=== PATIENT | female | born 1985 | race Caucasian/White ===

== ENCOUNTER → 2017-04-30 | Outpatient (CLI) | payer BC ==
--- NOTE | 2017-05-05 14:07 | HM ---
Patient was monitored for 48 hours. Baseline rhythm is sinus mechanism with normal condition. The average rate 81 beats per minute, minimum 53, maximum 166 beats per minute. Ventricular ectopic activity is present in the form of rare PVC's, supraventricular ectopic activity was present in the rare single PAC's, symptoms of chest tightness, nausea, shortness of breath. Did not correlate with any dysrhythmia. CONCLUSION: 1. Sinus mechanism based on rhythm. 2. Rare ventricular ectopic activity. 3. Rare supraventricular ectopic activity. 4. Symptoms did not correlate with any dysrhythmia. MTDD
== END | disposition home or self-care (01) ==
LOC: RADECHMAIN 12:05
PROVIDERS: ATTEND Family Medicine
DX: I49.3 Ventricular premature depolarization (principal); R07.9 Chest pain, unspecified
CPT/HCPCS: 93225; 93226

== ENCOUNTER 2018-03-03 06:47 | Inpatient (IN) | payer BC, OTHER ==
[2018-03-03] MEDS ORDERED: PIPERACILLIN-TAZOBACTAM 3.375 GM in DEXTROSE/WATER 1 50ML.BAG IVPB STA (07:49)
--- NOTE | 2018-03-03 07:53 | ED ---
General Adult HPI - General Chief complaint: Skin/Abscess/Foreign Body Stated complaint: Cellulitis Time Seen by Provider: 03/03/18 07:00 Source: patient, RN notes reviewed Mode of arrival: ambulatory Limitations: no limitations - History of Present Illness Initial comments: This is a 32-year-old female presents emergency Department with some redness and swelling to the left side of her gluteal cleft. Patient states his been ongoing since Sunday or Sunday of last week. Patient states she went to [facility] they told it was just a bruise center on her way. Patient states they did give her a prescription for clindamycin and told her if it doesn't get better start clindamycin. Patient states she started the clindamycin yesterday. Patient states she's been feeling warm and having the chills but she's been taking Motrin and Tylenol. Patient states she can't bear the pain anymore. Patient states swollen areas now spreading into her cleft and towards her vagina. Patient denies any drainage. - Related Data Previous Rx's Medication Instructions Recorded Ibuprofen [Motrin] 600 mg PO Q6HR PRN #20 tab 12/04/15 Allergies Allergy/AdvReac Type Severity Reaction Status Date / Time No Known Allergies Allergy Verified 12/04/15 18:55 Review of Systems ROS Statement: Those systems with pertinent positive or pertinent negative responses have been documented in the HPI. ROS Other: All systems not noted in ROS Statement are negative. Past Medical History Past Medical History: Hyperlipidemia History of Any Multi-Drug Resistant Organisms: None Reported Past Surgical History: No Surgical Hx Reported Past Psychological History: No Psychological Hx Reported Smoking Status: Current every day smoker Past Alcohol Use History: Occasional Past Drug Use History: None Reported General Exam - General Exam Comments Initial Comments: GENERAL: Patient is well-developed and well-nourished. Patient is nontoxic and well- hydrated and is in moderate distress. ENT: Neck is soft and supple. No significant lymphadenopathy is noted. Oropharynx is clear. Moist mucous membranes. Neck has full range of motion without eliciting any pain. EYES: The sclera were anicteric and conjunctiva were pink and moist. Extraocular movements were intact and pupils were equal round and reactive to light. Eyelids were unremarkable. PULMONARY: Unlabored respirations. Good breath sounds bilaterally. No audible rales rhonchi or wheezing was noted. CARDIOVASCULAR: There is a regular rate and rhythm without any murmurs gallops or rubs. ABDOMEN: Soft and nontender with normal bowel sounds. No palpable organomegaly was noted. There is no palpable pulsatile mass. SKIN: Patient has an abscess just to the upper left aspect of her gluteal cleft. Area is warm and tender and erythematous NEUROLOGIC: Patient is alert and oriented x3. Cranial nerves II through XII are grossly intact. Motor and sensory are also intact. Normal speech, volume and content. Symmetrical smile. MUSCULOSKELETAL: Normal extremities with adequate strength and full range of motion. No lower extremity swelling or edema. No calf tenderness. LYMPHATICS: No significant lymphadenopathy is noted PSYCHIATRIC: Normal psychiatric evaluation. Normal interpersonal interactions appears functionally intact in deals appropriately with others. No signs of depression. No signs of anxiety. Limitations: no limitations Course Vital Signs 03/03/18 07:04 Temperature 98.2 F Pulse Rate 95 Respiratory 18 Rate Blood Pressure 136/67 O2 Sat by Pulse 98 Oximetry Medical Decision Making - Medical Decision Making I spoke with Dr. Pollack and she agreed to admit the patient. I started the patient on Zosyn and fevers him appropriate pain medications - Lab Data Result diagrams: 03/03/18 08:00 03/03/18 08:00 Lab Results 03/03/18 03/03/18 03/03/18 Range/Units 08:00 08:00 08:00 WBC 24.3 H (3.8-10.6) k/uL RBC 4.35 (3.80-5.40) m/uL Hgb 13.0 (11.4-16.0) gm/dL Hct 37.5 (34.0-46.0) % MCV 86.2 (80.0-100.0) fL MCH 29.9 (25.0-35.0) pg MCHC 34.7 (31.0-37.0) g/dL RDW 13.1 (11.5-15.5) % Plt Count 293 (150-450) k/uL Neutrophils % 90 % Lymphocytes % 4 % Monocytes % 4 % Eosinophils % 1 % Basophils % 0 % Neutrophils # 21.9 H (1.3-7.7) k/uL Lymphocytes # 1.0 (1.0-4.8) k/uL Monocytes # 1.0 (0-1.0) k/uL Eosinophils # 0.2 (0-0.7) k/uL Basophils # 0.0 (0-0.2) k/uL Sodium 142 (137-145) mmol/L Potassium 4.0 (3.5-5.1) mmol/L Chloride 107 (98-107) mmol/L Carbon Dioxide 22 (22-30) mmol/L Anion Gap 13 mmol/L BUN 18 H (7-17) mg/dL Creatinine 0.60 (0.52-1.04) mg/dL Est GFR (CKD-EPI)AfAm >90 (>60 ml/min/1.73 sqM) Est GFR (CKD-EPI)NonAf >90 (>60 ml/min/1.73 sqM) Glucose 100 H (74-99) mg/dL Plasma Lactic Acid Lamine 1.2 (0.7-2.0) mmol/L Calcium 9.1 (8.4-10.2) mg/dL Total Bilirubin 0.4 (0.2-1.3) mg/dL AST 16 (14-36) U/L ALT 26 (9-52) U/L Alkaline Phosphatase 69 (38-126) U/L Total Protein 5.7 L (6.3-8.2) g/dL Albumin 3.4 L (3.5-5.0) g/dL Urine Color Urine Appearance (Clear) Urine pH (5.0-8.0) Ur Specific [place] (1.001-1.035) Urine Protein (Negative) Urine Glucose (UA) (Negative) Urine Ketones (Negative) Urine Blood (Negative) Urine Nitrite (Negative) Urine Bilirubin (Negative) Urine Urobilinogen (<2.0) mg/dL Ur Leukocyte Esterase (Negative) Urine RBC (0-5) /hpf Urine WBC (0-5) /hpf Ur Squamous Epith Cells (0-4) /hpf Urine Bacteria (None) /hpf Urine Mucus (None) /hpf 03/03/18 Range/Units 08:00 WBC (3.8-10.6) k/uL RBC (3.80-5.40) m/uL Hgb (11.4-16.0) gm/dL Hct (34.0-46.0) % MCV (80.0-100.0) fL MCH (25.0-35.0) pg MCHC (31.0-37.0) g/dL RDW (11.5-15.5) % Plt Count (150-450) k/uL Neutrophils % % Lymphocytes % % Monocytes % % Eosinophils % % Basophils % % Neutrophils # (1.3-7.7) k/uL Lymphocytes # (1.0-4.8) k/uL Monocytes # (0-1.0) k/uL Eosinophils # (0-0.7) k/uL Basophils # (0-0.2) k/uL Sodium (137-145) mmol/L Potassium (3.5-5.1) mmol/L Chloride (98-107) mmol/L Carbon Dioxide (22-30) mmol/L Anion Gap mmol/L BUN (7-17) mg/dL Creatinine (0.52-1.04) mg/dL Est GFR (CKD-EPI)AfAm (>60 ml/min/1.73 sqM) Est GFR (CKD-EPI)NonAf (>60 ml/min/1.73 sqM) Glucose (74-99) mg/dL Plasma Lactic Acid Lamine (0.7-2.0) mmol/L Calcium (8.4-10.2) mg/dL Total Bilirubin (0.2-1.3) mg/dL AST (14-36) U/L ALT (9-52) U/L Alkaline Phosphatase (38-126) U/L Total Protein (6.3-8.2) g/dL Albumin (3.5-5.0) g/dL Urine Color Yellow Urine Appearance Cloudy H (Clear) Urine pH 5.5 (5.0-8.0) Ur Specific [place] 1.021 (1.001-1.035) Urine Protein Trace H (Negative) Urine Glucose (UA) Negative (Negative) Urine Ketones 2+ H (Negative) Urine Blood Moderate H (Negative) Urine Nitrite Negative (Negative) Urine Bilirubin Negative (Negative) Urine Urobilinogen <2.0 (<2.0) mg/dL Ur Leukocyte Esterase Small H (Negative) Urine RBC 11 H (0-5) /hpf Urine WBC 20 H (0-5) /hpf Ur Squamous Epith Cells 6 H (0-4) /hpf Urine Bacteria Many H (None) /hpf Urine Mucus Occasional H (None) /hpf Disposition Clinical Impression: Abscess, gluteal cleft Disposition: ADMITTED IP TO THIS HOSP Referrals: Samia Linton MD [Primary Care Provider] - 1-2 days Time of Disposition: 10:27
[2018-03-03] MEDS ORDERED: ONDANSETRON 4 MG/2 ML VIAL IVP STA (08:21)
[2018-03-03] MEDS: SODIUM CHLORIDE 0.9% 500 ML IV SCH ×2 (08:25→08:26)
[2018-03-03] MEDS: MORPHINE SULFATE 2 MG/ML SYRINGE IVP STA ×2 (08:27→09:40)
[2018-03-03 08:33] LABS: Basophils % (A) 0 %; Eosinophils # (A) 0.2 k/uL (0-0.7); Eosinophils % (A) 1 %; HCT 37.5 % (34.0-46.0); Lymphocytes % (A) 4 %; MCH 29.9 pg (25.0-35.0); MCHC 34.7 g/dL (31.0-37.0); MCV 86.2 fL (80.0-100.0); Mean Platelet Volume 7.2; Monocytes % (A) 4 %; Neutrophils # (A) 21.9 k/uL (1.3-7.7); Neutrophils % (A) 90 %; Platelet Count 293 k/uL (150-450); RBC 4.35 m/uL (3.80-5.40); RDW 13.1 % (11.5-15.5); WBC 24.3 k/uL (3.8-10.6)
[2018-03-03 08:42] LABS: ALT 26 U/L (9-52); AST 16 U/L (14-36); Albumin 3.4 g/dL (3.5-5.0); Alkaline Phosphatase 69 U/L (38-126); Anion Gap 13 mmol/L; Blood Urea Nitrogen 18 mg/dL (7-17); Calcium 9.1 mg/dL (8.4-10.2); Carbon Dioxide 22 mmol/L (22-30); Chloride 107 mmol/L (98-107); Glucose 100 mg/dL (74-99); Sodium 142 mmol/L (137-145); Total Bilirubin 0.4 mg/dL (0.2-1.3); Total Protein 5.7 g/dL (6.3-8.2)
[2018-03-03 08:49] LABS: Appearance,Urine Cloudy (Clear); Bacteria,Urine Many /hpf; Bilirubin,Urine Negative (Negative); Blood,Urine Moderate (Negative); Color,Urine Yellow; Glucose,Urine (UA) Negative (Negative); Ketones,Urine 2+ (Negative); Leukocyte Esterase,Urine Small (Negative); Mucus,Urine Occasional /hpf; Nitrite,Urine Negative (Negative); PH, Urine 5.5 (5.0-8.0); Protein,Urine Trace (Negative); RBC,Urine 11 /hpf (0-5); Specific Gravity,Urine 1.021 (1.001-1.035); Squamous Epithelial Cell,Urine 6 /hpf (0-4); Urobilinogen,Urine <2.0 mg/dL (<2.0); WBC,Urine 20 /hpf (0-5)
[2018-03-03] MEDS ORDERED: SODIUM CHLORIDE 0.9% 1,000 ML IV ONE (10:28)
[2018-03-03 11:38] VITALS: BMI 26.6
[2018-03-03] MEDS ORDERED: LIDOCAINE 1% (PF) 10MG/ML VIAL SQ ONE (11:50)
--- NOTE | 2018-03-03 12:38 | P.GSHP ---
History of Present Illness H&P Date: 03/03/18 Chief Complaint: Infection The patient's a 32-year-old female who began to have pain and discomfort in the right perirectal area on Sunday. It got progressively worse. She was unable to sit. She was seen and started on antibiotic. It got worse so she came into the emergency department and is admitted with a perirectal abscess. She is complaining of swelling towards the vaginal area. She had had no drainage until arrival in her room. No previous episodes of this. - Review of Systems All systems: negative - Constitutional Constitutional: Reports chills, Reports lethargy, Denies fever Past Medical History Past Medical History: Hyperlipidemia Additional Past Medical History / Comment(s): concussionx2 History of Any Multi-Drug Resistant Organisms: None Reported Past Surgical History: No Surgical Hx Reported Past Anesthesia/Blood Transfusion Reactions: No Reported Reaction Past Psychological History: No Psychological Hx Reported Smoking Status: Current every day smoker Past Alcohol Use History: Occasional Past Drug Use History: None Reported - Past Family History Father Family Medical History: Coronary Artery Disease (CAD) Mother Family Medical History: Thyroid Disorder Medications and Allergies Home Medications Medication Instructions Recorded Confirmed Type Acetaminophen Tab [Tylenol Tab] 1,000 mg PO Q6HR PRN 03/03/18 03/03/18 History Clindamycin [Cleocin] 300 mg PO TID 03/03/18 03/03/18 History Ibuprofen [Motrin Ib] 400 - 800 mg PO Q6H PRN 03/03/18 03/03/18 History Allergies Allergy/AdvReac Type Severity Reaction Status Date / Time No Known Allergies Allergy Verified 03/03/18 12:06 Surgical - Exam Osteopathic Statement: *. No significant issues noted on an osteopathic structural exam other than those noted in the History and Physical/Consult. Vital Signs Temp Pulse Resp BP Pulse Ox 98.2 F 95 18 136/67 98 03/03/18 07:04 03/03/18 07:04 03/03/18 07:04 03/03/18 07:04 03/03/18 07:04 - General Anxious due to the pain and drainage well developed, well nourished - Neck trachea midline - Respiratory normal respiratory effort - Abdomen Abdomen: soft - Rectum There is a large area of swelling and erythema to the left and posterior to the anus. There is a 1 cm of skin breakdown with drainage of a large amount of foul purulent drainage. Another area about 1.5 x 3 cm of superficial epithelial breakdown - Psychiatric oriented to time, oriented to person Results - Labs 03/03/18 08:00 03/03/18 08:00 Abnormal Lab Results - Last 24 Hours (Table) 03/03/18 03/03/18 03/03/18 Range/Units 08:00 08:00 08:00 WBC 24.3 H (3.8-10.6) k/uL Neutrophils # 21.9 H (1.3-7.7) k/uL BUN 18 H (7-17) mg/dL Glucose 100 H (74-99) mg/dL Total Protein 5.7 L (6.3-8.2) g/dL Albumin 3.4 L (3.5-5.0) g/dL Urine Appearance Cloudy H (Clear) Urine Protein Trace H (Negative) Urine Ketones 2+ H (Negative) Urine Blood Moderate H (Negative) Ur Leukocyte Esterase Small H (Negative) Urine RBC 11 H (0-5) /hpf Urine WBC 20 H (0-5) /hpf Ur Squamous Epith Cells 6 H (0-4) /hpf Urine Bacteria Many H (None) /hpf Urine Mucus Occasional H (None) /hpf Microbiology - Last 24 Hours (Table) 03/03/18 08:00 Urine Culture - Preliminary Urine,Voided Diabetes panel 03/03/18 Range/Units 08:00 Sodium 142 (137-145) mmol/L Potassium 4.0 (3.5-5.1) mmol/L Chloride 107 (98-107) mmol/L Carbon Dioxide 22 (22-30) mmol/L BUN 18 H (7-17) mg/dL Creatinine 0.60 (0.52-1.04) mg/dL Glucose 100 H (74-99) mg/dL Calcium 9.1 (8.4-10.2) mg/dL AST 16 (14-36) U/L ALT 26 (9-52) U/L Alkaline Phosphatase 69 (38-126) U/L Total Protein 5.7 L (6.3-8.2) g/dL Albumin 3.4 L (3.5-5.0) g/dL Calcium panel 03/03/18 Range/Units 08:00 Calcium 9.1 (8.4-10.2) mg/dL Albumin 3.4 L (3.5-5.0) g/dL Pituitary panel 03/03/18 Range/Units 08:00 Sodium 142 (137-145) mmol/L Potassium 4.0 (3.5-5.1) mmol/L Chloride 107 (98-107) mmol/L Carbon Dioxide 22 (22-30) mmol/L BUN 18 H (7-17) mg/dL Creatinine 0.60 (0.52-1.04) mg/dL Glucose 100 H (74-99) mg/dL Calcium 9.1 (8.4-10.2) mg/dL Adrenal panel 03/03/18 Range/Units 08:00 Sodium 142 (137-145) mmol/L Potassium 4.0 (3.5-5.1) mmol/L Chloride 107 (98-107) mmol/L Carbon Dioxide 22 (22-30) mmol/L BUN 18 H (7-17) mg/dL Creatinine 0.60 (0.52-1.04) mg/dL Glucose 100 H (74-99) mg/dL Calcium 9.1 (8.4-10.2) mg/dL Total Bilirubin 0.4 (0.2-1.3) mg/dL AST 16 (14-36) U/L ALT 26 (9-52) U/L Alkaline Phosphatase 69 (38-126) U/L Total Protein 5.7 L (6.3-8.2) g/dL Albumin 3.4 L (3.5-5.0) g/dL Assessment and Plan (1) Perirectal abscess Current Visit: Yes Status: Acute Code(s): K61.1 - RECTAL ABSCESS SNOMED Code(s): 27521860 Plan: The area has spontaneously started to drain. We will open the skin a little bit further to irrigate and pack it. She's on appropriate antibiotics. Discussed the procedure and usual course in the hospital.
[2018-03-03] MEDS ORDERED: FLUCONAZOLE 100 MG TAB PO ONE (12:40)
[2018-03-03] MEDS: MORPHINE SULFATE 2 MG/ML SYRINGE IVP PRN ×2 (13:30→21:53)
[2018-03-03] MEDS: KETOROLAC 30 MG/ML 1 ML VIAL IVP SCH ×3 (15:17→23:56)
[2018-03-03] MEDS: DOCUSATE 100 MG CAP PO SCH (15:18)
[2018-03-03] MEDS: PIPERACILLIN-TAZOBACTAM 3.375 GM in DEXTROSE/WATER 1 50ML.BAG IVPB SCH ×2 (15:22→23:56)
--- NOTE | 2018-03-03 19:51 | P.PCN ---
Date of Procedure: 03/03/18 Preoperative Diagnosis: perirectal abscess Postoperative Diagnosis: perirectal abscess Procedure(s) Performed: incision and drainage of perirectal abscess Anesthesia: local Surgeon: Geraldine Pollack Pathology: none sent Condition: stable Indications for Procedure: perirectal abscess, had started to spontaneously drain, but drainage was inadequate Description of Procedure: The patient was given informed consent. The skin was cleaned with betadine. 1 % lidocaine was infiltrated into the skin. An 11 blade was used to incise the skin further. The wound was irrigated with normal saline. 1/4 in gauze was placed.
[2018-03-04] MEDS: KETOROLAC 30 MG/ML 1 ML VIAL IVP SCH ×3 (06:13→16:24)
[2018-03-04 08:34] LABS: HCT 34.2 % (34.0-46.0); HGB 11.4 gm/dL (11.4-16.0); MCH 29.3 pg (25.0-35.0); MCHC 33.3 g/dL (31.0-37.0); Mean Platelet Volume 7.2; Platelet Count 327 k/uL (150-450); RBC 3.89 m/uL (3.80-5.40); RDW 12.9 % (11.5-15.5)
[2018-03-04] MEDS: PIPERACILLIN-TAZOBACTAM 3.375 GM in DEXTROSE/WATER 1 50ML.BAG IVPB SCH ×2 (08:34→16:24)
[2018-03-04] MEDS: DOCUSATE 100 MG CAP PO SCH (08:35)
[2018-03-04] MEDS: HYDROcodone/APAP 5-325MG 1 EACH TAB PO PRN ×2 (08:49→22:07)
--- NOTE | 2018-03-04 16:41 | P.PN ---
Subjective Progress Note Date: 03/04/18 Principal diagnosis: Perirectal abscess The patient is feeling better today. There is still some pain but she is now able to sit down. Moderate drainage. Objective - Vital Signs Vital signs: Vital Signs Temp 98.8 F 03/04/18 14:49 Pulse 87 03/04/18 14:49 Resp 16 03/04/18 14:49 BP 106/66 03/04/18 14:49 Pulse Ox 98 03/04/18 14:49 Intake & Output 03/03/18 03/04/18 03/04/18 18:59 06:59 18:59 Intake Total 850 400 Balance 850 400 Weight 74.8 kg Intake: Intake, IV Titration 850 Amount Piperacillin-Tazobactam 3 50 .375 gm In Dextrose/Water 1 50ml.bag @ 12.5 mls/hr IVPB Q8HR CADY Rx#: [id number] Sodium Chloride 0.9% 1, 800 000 ml @ 100 mls/hr IV . Q10H ONE Rx#:[id number] Oral 400 Other: # Voids 1 1 2 - Constitutional General appearance: Present: cooperative, no acute distress - Integumentary Integumentary Comment(s): The swelling and erythema in the left gluteal area is much improved. There is moderate mucopurulent drainage. There is an area with superficial skin breakdown where she had noticed a "blister" prior to coming into the hosptial. - Labs CBC & Chem 7: 03/04/18 08:18 03/03/18 08:00 Labs: Abnormal Lab Results - Last 24 Hours (Table) 03/04/18 Range/Units 08:18 WBC 18.0 H (3.8-10.6) k/uL Microbiology - Last 24 Hours (Table) 03/03/18 08:00 Urine Culture - Preliminary Urine,Voided Gram Neg Bacilli 03/03/18 08:00 Blood Culture - Preliminary Blood No Growth after 24 hours Assessment and Plan (1) Perirectal abscess Current Visit: Yes Status: Acute Code(s): K61.1 - RECTAL ABSCESS SNOMED Code(s): 83153584 Plan: Continue IV antibiotics. Change the packing and irrigate the wound in the morning. Arrange home health care. Progressing well
[2018-03-05] MEDS: PIPERACILLIN-TAZOBACTAM 3.375 GM in DEXTROSE/WATER 1 50ML.BAG IVPB SCH ×3 (00:20→16:36)
[2018-03-05] MEDS: KETOROLAC 30 MG/ML 1 ML VIAL IVP SCH ×3 (00:20→13:14)
[2018-03-05] MEDS: HYDROcodone/APAP 5-325MG 1 EACH TAB PO PRN ×2 (07:20→13:17)
[2018-03-05 07:56] LABS: HCT 31.6 % (34.0-46.0); HGB 10.6 gm/dL (11.4-16.0); MCH 29.5 pg (25.0-35.0); MCHC 33.5 g/dL (31.0-37.0); MCV 88.1 fL (80.0-100.0); Mean Platelet Volume 6.9; Platelet Count 297 k/uL (150-450); RBC 3.59 m/uL (3.80-5.40); RDW 12.9 % (11.5-15.5); WBC 11.1 k/uL (3.8-10.6)
[2018-03-05] MEDS: DOCUSATE 100 MG CAP PO SCH (10:02)
[2018-03-05 15:31] VITALS: BP 114/71; PULSE 80; RESP 16; TEMP 98.3
--- NOTE | 2018-03-05 16:05 | P.DS ---
Providers Date of admission: 03/03/18 10:28 Expected date of discharge: 03/05/18 Attending physician: Geraldine Pollack Primary care physician: Samia Linton MD - Discharge Diagnosis(es) (1) Perirectal abscess Current Visit: Yes Status: Acute Hospital Course: The patient presented with perirectal pain and swelling which it started the week before. She was found to have a perirectal abscess. She was admitted. It began spontaneously draining. The skin opening was extended in the patient's room to allow for adequate drainage. She was given IV antibiotics. By 6-5 the pain was markedly improved. Her white count had normalized. She was felt to be stable for discharge. Patient Condition at Discharge: Good Plan - Discharge Summary Discharge Rx Participant: No New Discharge Prescriptions: New Ciprofloxacin HCl [Cipro] 500 mg PO Q12HR #20 tablet Hydrocodone/Acetaminophen [Hydrocodon-Acetaminophen 5-325] 1 - 2 tab PO Q6HR PRN 3 Days #24 tab PRN Reason: Pain Discontinued Clindamycin [Cleocin] 300 mg PO TID No Action Acetaminophen Tab [Tylenol Tab] 1,000 mg PO Q6HR PRN PRN Reason: Pain Ibuprofen [Motrin Ib] 400 - 800 mg PO Q6H PRN PRN Reason: Pain Discharge Medication List Acetaminophen Tab [Tylenol Tab] 1,000 mg PO Q6HR PRN 03/03/18 [History] Ibuprofen [Motrin Ib] 400 - 800 mg PO Q6H PRN 03/03/18 [History] Ciprofloxacin HCl [Cipro] 500 mg PO Q12HR #20 tablet 03/05/18 [Rx] Hydrocodone/Acetaminophen [Hydrocodon-Acetaminophen 5-325] 1 - 2 tab PO Q6HR PRN 3 Days #24 tab 03/05/18 [Rx] Follow up Appointment(s)/Referral(s): Geraldine Pollack DO [Doctor of Osteopathic Medicine] - 03/19/18 9:15 am (1-2 weeks) Samia Linton MD [Primary Care Provider] - 1-2 days (Office will call you with appointment time. ) [facility], [NON-STAFF] - Patient Instructions/Handouts: Abscess Incision and Drainage (DC) Activity/Diet/Wound Care/Special Instructions: Irrigate/rinse out the wound daily with normal saline. Packed with 1/4 inch gauze. Cover with dressing. Regular diet. NO smoking, cessation information provided. Discharge Disposition: HOME SELF-CARE
== END 2018-03-05 16:52 | disposition home or self-care (01) | DRG 395 ==
LOC: EC 06:47 → 4MS4W 10:28
PROVIDERS: ADMIT Surgery; ATTEND Surgery
DX: K61.1 Rectal abscess (principal); F17.200 Nicotine dependence, unspecified, uncomplicated; Z82.49 Family history of ischemic heart disease and other diseases of the circulatory system; Z79.1 Long term (current) use of non-steroidal anti-inflammatories (NSAID); Z79.899 Other long term (current) drug therapy
CPT/HCPCS: 36415; 80053; 81001; 83605; 85025; 85027; 87040; 87077; 87086; 87186; 94760; 96365; 96366; 96375; 96376; 99284

== ENCOUNTER 2018-04-27 18:22 | Inpatient (IN) | payer BC ==
[2018-04-27] MEDS ORDERED: ACETAMINOPHEN TAB 500 MG TAB PO STA (18:53)
--- NOTE | 2018-04-27 19:01 | ED ---
Fever HPI - General Chief Complaint: Fever Stated Complaint: POSS UTI Time Seen by Provider: 04/27/18 18:35 Source: patient Mode of arrival: ambulatory Limitations: no limitations - History of Present Illness Initial Comments: Patient is a 32-year-old female presenting for fever and chills. Patient states that on Sunday, she started having right flank pain is progressively got worse. It is not radiating to the front of her abdomen and associated with nausea. She denies any dysuria but states that her abdomen does hurt worse whenever she urinates. She denies any vaginal bleeding, vaginal discharge, vomiting, diarrhea. She also states that she is having significant fevers or chills throughout the day and then she has been taking Tylenol and Motrin with no significant relief. - Related Data Home Medications Medication Instructions Recorded Confirmed Acetaminophen Tab [Tylenol Tab] 1,000 mg PO Q6HR PRN 03/03/18 03/03/18 Ibuprofen [Motrin Ib] 400 - 800 mg PO Q6H PRN 03/03/18 03/03/18 Previous Rx's Medication Instructions Recorded Ciprofloxacin HCl [Cipro] 500 mg PO Q12HR #20 tablet 03/05/18 Hydrocodone/Acetaminophen 1 - 2 tab PO Q6HR PRN 3 Days #24 03/05/18 [Hydrocodon-Acetaminophen 5-325] tab Allergies Allergy/AdvReac Type Severity Reaction Status Date / Time No Known Allergies Allergy Verified 04/27/18 18:31 Review of Systems ROS Statement: Those systems with pertinent positive or pertinent negative responses have been documented in the HPI. Constitutional: Positive for chills, fatigue and fever. HENT: Negative for congestion. Respiratory: Negative for chest tightness, shortness of breath and wheezing. Negative for cough Cardiovascular: Negative for chest pain and palpitations. Gastrointestinal: Positive for abdominal pain and nausea. Negative for abdominal distention, diarrhea,and vomiting. Genitourinary: Negative for dysuria. Musculoskeletal: Negative for back pain, neck pain and neck stiffness. Skin: Negative for color change. Neurological: Negative for dizziness, speech difficulty, weakness and light- headedness. Psychiatric/Behavioral: Negative for agitation and confusion. Negative for anxiety ROS Other: All systems not noted in ROS Statement are negative. Past Medical History Past Medical History: Hyperlipidemia Additional Past Medical History / Comment(s): concussionx2 History of Any Multi-Drug Resistant Organisms: None Reported Past Surgical History: No Surgical Hx Reported Past Anesthesia/Blood Transfusion Reactions: No Reported Reaction Past Psychological History: No Psychological Hx Reported Smoking Status: Current every day smoker Past Alcohol Use History: Occasional Past Drug Use History: None Reported - Past Family History Father Family Medical History: Coronary Artery Disease (CAD) Mother Family Medical History: Thyroid Disorder General Exam - General Exam Comments Initial Comments: Constitutional: Pt is oriented to person, place, and time. Pt appears well- developed and well-nourished. No distress. HENT: Head: Normocephalic and atraumatic. Eyes: EOM are normal. Neck: Normal range of motion. Neck supple. Cardiovascular: Tachycardia present, regular rhythm, S1 normal, S2 normal and normal heart sounds. Exam reveals no gallop and no friction rub. No murmur heard. Pulmonary/Chest: Effort normal and breath sounds normal. No tachypnea and no bradypnea. No respiratory distress. No wheezes or rales noted. Abdominal: Soft. Bowel sounds are normal. Pt exhibits no shifting dullness, no distension, no pulsatile liver, no fluid wave, no abdominal bruit and no ascites. There is no tenderness. There is no rigidity, no rebound, no guarding, and negative Jimenez's sign. There is right-sided CVA tenderness and tenderness at McBurney's point Musculoskeletal: Normal range of motion. Neurological: Pt is alert and oriented to person, place, and time. No cranial nerve deficit. Skin: Skin is warm and dry. No rash noted. Pt is not diaphoretic. No erythema. No pallor. Psychiatric: Pt has a normal mood and affect. Pt behavior is normal. Thought content normal. Limitations: no limitations Course Vital Signs 04/27/18 04/27/18 18:29 21:22 Temperature 98.9 F 98.7 F Pulse Rate 113 H 100 Respiratory 20 20 Rate Blood Pressure 126/81 108/58 O2 Sat by Pulse 98 97 Oximetry Medical Decision Making - Medical Decision Making Laboratory studies showed that there was significant leukocytosis 18.3 but went acid was normal at 2.0. Nonetheless, because of the patient's initial vital signs, sepsis order set was initiated and patient was given 30 mL per KG bolus. There is also no transaminitis or pancreatitis. CT of the abdomen was performed because the patient did have pain in the right lower quadrant and appendicitis had to be excluded. CT was performed and showed polyps nephritis with no evidence of appendicitis. Therefore the patient was treated for pyelonephritis with Rocephin. However, patient continued to remain mildly tachycardic with heart rate in the low 100s and therefore it was advised that the patient should be admitted to hospital for continued evaluation.Explained all labs and diagnostic test results and that we will admit patient to hospital. Pt is agreeable to plan and case has been discussed with Dr. Skinner and they agree to accept the pt. - Lab Data Result diagrams: 04/27/18 19:16 04/27/18 19:16 Lab Results 04/27/18 04/27/18 04/27/18 Range/Units 19:16 19:16 19:16 WBC 18.3 H (3.8-10.6) k/uL RBC 4.53 (3.80-5.40) m/uL Hgb 12.9 (11.4-16.0) gm/dL Hct 39.8 (34.0-46.0) % MCV 87.8 (80.0-100.0) fL MCH 28.5 (25.0-35.0) pg MCHC 32.5 (31.0-37.0) g/dL RDW 13.5 (11.5-15.5) % Plt Count 213 (150-450) k/uL Neutrophils % 88 % Lymphocytes % 5 % Monocytes % 5 % Eosinophils % 1 % Basophils % 0 % Neutrophils # 16.1 H (1.3-7.7) k/uL Lymphocytes # 1.0 (1.0-4.8) k/uL Monocytes # 0.9 (0-1.0) k/uL Eosinophils # 0.1 (0-0.7) k/uL Basophils # 0.0 (0-0.2) k/uL Sodium 136 L (137-145) mmol/L Potassium 4.3 (3.5-5.1) mmol/L Chloride 106 (98-107) mmol/L Carbon Dioxide 23 (22-30) mmol/L Anion Gap 7 mmol/L BUN 9 (7-17) mg/dL Creatinine 0.80 (0.52-1.04) mg/dL Est GFR (CKD-EPI)AfAm >90 (>60 ml/min/1.73 sqM) Est GFR (CKD-EPI)NonAf >90 (>60 ml/min/1.73 sqM) Glucose 138 H (74-99) mg/dL Plasma Lactic Acid Lamine 2.0 (0.7-2.0) mmol/L Calcium 8.9 (8.4-10.2) mg/dL Magnesium 1.6 (1.6-2.3) mg/dL Total Bilirubin 0.5 (0.2-1.3) mg/dL AST 20 (14-36) U/L ALT 27 (9-52) U/L Alkaline Phosphatase 56 (38-126) U/L Total Protein 5.7 L (6.3-8.2) g/dL Albumin 3.6 (3.5-5.0) g/dL Urine Color Urine Appearance (Clear) Urine pH (5.0-8.0) Ur Specific Grant (1.001-1.035) Urine Protein (Negative) Urine Glucose (UA) (Negative) Urine Ketones (Negative) Urine Blood (Negative) Urine Nitrite (Negative) Urine Bilirubin (Negative) Urine Urobilinogen (<2.0) mg/dL Ur Leukocyte Esterase (Negative) Urine RBC (0-5) /hpf Urine WBC (0-5) /hpf Ur Squamous Epith Cells (0-4) /hpf Amorphous Sediment (None) /hpf Urine Mucus (None) /hpf Urine HCG, Qual (Not Detectd) 04/27/18 04/27/18 Range/Units 19:16 19:16 WBC (3.8-10.6) k/uL RBC (3.80-5.40) m/uL Hgb (11.4-16.0) gm/dL Hct (34.0-46.0) % MCV (80.0-100.0) fL MCH (25.0-35.0) pg MCHC (31.0-37.0) g/dL RDW (11.5-15.5) % Plt Count (150-450) k/uL Neutrophils % % Lymphocytes % % Monocytes % % Eosinophils % % Basophils % % Neutrophils # (1.3-7.7) k/uL Lymphocytes # (1.0-4.8) k/uL Monocytes # (0-1.0) k/uL Eosinophils # (0-0.7) k/uL Basophils # (0-0.2) k/uL Sodium (137-145) mmol/L Potassium (3.5-5.1) mmol/L Chloride (98-107) mmol/L Carbon Dioxide (22-30) mmol/L Anion Gap mmol/L BUN (7-17) mg/dL Creatinine (0.52-1.04) mg/dL Est GFR (CKD-EPI)AfAm (>60 ml/min/1.73 sqM) Est GFR (CKD-EPI)NonAf (>60 ml/min/1.73 sqM) Glucose (74-99) mg/dL Plasma Lactic Acid Lamine (0.7-2.0) mmol/L Calcium (8.4-10.2) mg/dL Magnesium (1.6-2.3) mg/dL Total Bilirubin (0.2-1.3) mg/dL AST (14-36) U/L ALT (9-52) U/L Alkaline Phosphatase (38-126) U/L Total Protein (6.3-8.2) g/dL Albumin (3.5-5.0) g/dL Urine Color Yellow Urine Appearance Cloudy H (Clear) Urine pH 6.0 (5.0-8.0) Ur Specific Grant 1.019 (1.001-1.035) Urine Protein 1+ H (Negative) Urine Glucose (UA) Negative (Negative) Urine Ketones Negative (Negative) Urine Blood Moderate H (Negative) Urine Nitrite Negative (Negative) Urine Bilirubin Negative (Negative) Urine Urobilinogen <2.0 (<2.0) mg/dL Ur Leukocyte Esterase Large H (Negative) Urine RBC 23 H (0-5) /hpf Urine WBC 74 H (0-5) /hpf Ur Squamous Epith Cells 8 H (0-4) /hpf Amorphous Sediment Rare H (None) /hpf Urine Mucus Few H (None) /hpf Urine HCG, Qual Not Detected (Not Detectd) Disposition Clinical Impression: Sepsis, Pyelonephritis Disposition: ADMITTED IP TO THIS [facility] Condition: Fair Referrals: Samia Linton MD [Primary Care Provider] - 1-2 days Decision to Admit Reason: Admit from EC Decision Date: 04/27/18 Decision Time: 21:41
[2018-04-27] MEDS: SODIUM CHLORIDE 0.9% 500 ML IV SCH ×3 (19:31→19:33)
--- NOTE | 2018-04-27 19:41 | XR ---
EXAMINATION TYPE: XR chest 2V DATE OF EXAM: 04/27/2018 COMPARISON: NONE HISTORY: Fever TECHNIQUE: Frontal and lateral views of the chest are obtained. FINDINGS: There is no focal air space opacity, pleural effusion, or pneumothorax seen. The cardiac silhouette size is within normal limits. The osseous structures are intact. IMPRESSION: No acute cardiopulmonary process.
[2018-04-27 19:44] LABS: ALT 27 U/L (9-52); AST 20 U/L (14-36); Albumin 3.6 g/dL (3.5-5.0); Alkaline Phosphatase 56 U/L (38-126); Anion Gap 7 mmol/L; Blood Urea Nitrogen 9 mg/dL (7-17); Calcium 8.9 mg/dL (8.4-10.2); Carbon Dioxide 23 mmol/L (22-30); Chloride 106 mmol/L (98-107); Glucose 138 mg/dL (74-99); Magnesium 1.6 mg/dL (1.6-2.3); Potassium 4.3 mmol/L (3.5-5.1); Sodium 136 mmol/L (137-145); Total Bilirubin 0.5 mg/dL (0.2-1.3); Total Protein 5.7 g/dL (6.3-8.2)
[2018-04-27 19:54] LABS: Amorphous Sediment,Urine Rare /hpf; Appearance,Urine Cloudy (Clear); Bilirubin,Urine Negative (Negative); Blood,Urine Moderate (Negative); Color,Urine Yellow; Glucose,Urine (UA) Negative (Negative); Ketones,Urine Negative (Negative); Leukocyte Esterase,Urine Large (Negative); Mucus,Urine Few /hpf; Nitrite,Urine Negative (Negative); Protein,Urine 1+ (Negative); RBC,Urine 23 /hpf (0-5); Specific Gravity,Urine 1.019 (1.001-1.035); Squamous Epithelial Cell,Urine 8 /hpf (0-4); Urobilinogen,Urine <2.0 mg/dL (<2.0); WBC,Urine 74 /hpf (0-5)
[2018-04-27 19:55] LABS: Basophils % (A) 0 %; Eosinophils # (A) 0.1 k/uL (0-0.7); Eosinophils % (A) 1 %; HCT 39.8 % (34.0-46.0); HGB 12.9 gm/dL (11.4-16.0); Lymphocytes % (A) 5 %; MCH 28.5 pg (25.0-35.0); MCHC 32.5 g/dL (31.0-37.0); MCV 87.8 fL (80.0-100.0); Mean Platelet Volume 6.6; Monocytes # (A) 0.9 k/uL (0-1.0); Monocytes % (A) 5 %; Neutrophils # (A) 16.1 k/uL (1.3-7.7); Neutrophils % (A) 88 %; Platelet Count 213 k/uL (150-450); RBC 4.53 m/uL (3.80-5.40); RDW 13.5 % (11.5-15.5); WBC 18.3 k/uL (3.8-10.6)
[2018-04-27] MEDS ORDERED: KETOROLAC 30 MG/ML 1 ML VIAL IVP STA (20:03)
[2018-04-27] MEDS ORDERED: cefTRIAXone IN SWFI 1,000 MG/10 ML SYRINGE IVP STA (20:32)
--- NOTE | 2018-04-27 21:01 | CT ---
EXAMINATION TYPE: CT abdomen pelvis w con DATE OF EXAM: 04/27/2018 HISTORY: Right flank and right lower quadrant pain x 1 week with nausea and fever. CT DLP: 576.1mGycm Automated Exposure Control for Dose Reduction was Utilized. CONTRAST: CT scan of the abdomen and pelvis is performed with IV Contrast, patient injected with 100 mL of Isov ue 300. COMPARISON: 12/14/2011. FINDINGS: LUNG BASES: Minimal bibasilar subsegmental atelectasis. Heart is not enlarged in its visualized porti on. LIVER/GB: No significant abnormality is appreciated. PANCREAS: No significant abnormality is seen. No ductal dilatation. SPLEEN: No significant abnormality is seen. No splenomegaly. ADRENALS: No thickening or nodularity. KIDNEYS: There is mild inflammatory fat stranding surrounding the right kidney. Additionally there is slight asymmetric enhancement with few areas of wedge-shaped hypoattenuation involving the cortex be st seen on the coronal images. Findings suggest bilateral nephritis. No adjacent perinephric abscess. Correlation with urinalysis is recommended. BOWEL: Appendix is low within the pelvis, air-filled and within normal limits in size. No evidence of large or small bowel dilatation. Moderate amount retained colonic stool slightly limits evaluation o f the large bowel. UTERUS/ADNEXA: There is bulkiness of the bilateral ovaries, which may relate to physiologic follicles in a patient that is premenopausal. If there is further concern evaluation with pelvic ultrasound co uld be performed. Bulkiness of the ovaries was seen on the prior of 12/14/2011. LYMPH NODES: No greater than 1cm abdominal or pelvic lymph nodes are appreciated. OSSEOUS STRUCTURES: Osseous structures appear intact. IMPRESSION: 1. Findings suggestive of right-sided pyelonephritis without perinephric abscess or hydronephrosis. C orrelate with urinalysis. 2. No CT evidence of acute appendicitis. 3. Bulkiness of the bilateral ovaries although appearance is similar to the prior exam of 2011. If t here is further concern evaluation with pelvic ultrasound could be performed.
[2018-04-27] MEDS ORDERED: NALOXONE 0.4 MG/ML 1 ML VIAL IV PRN (21:44)
[2018-04-27] MEDS ORDERED: HEPARIN SODIUM,PORCINE 5,000 UNIT/ML 1 ML VIAL SQ STA (22:01)
--- NOTE | 2018-04-27 22:34 | P.HPIM ---
History of Present Illness H&P Date: 04/27/18 Chief Complaint: right flank pain , fever 32 year old female with history of Hyperlipidemia and palpitations. patient presented due to worsening abd pain and fever. she reports that she had right flank / back pain since sunday (5-6 days now) she thought that she had pulled a muscle initially , felt generalized weakness and malaise, however for the past 3 days she has been having some chills, and fevers, feeling nauseated, and shooting pain radiating to the right groin when urinating. denies any vaginal discharge, or bleeding, denies any chest pain , trouble breathing or any upper respiratory infection like symptoms. She reports her abd pain to be 6/ 10 in severity, sharp , constant stabbing pain, worse with deep breaths and movement . denies any history of kidney stones . in the ED, she was found to be tachycardiac, and having elevated white count, CT of the abd, confirmed right pyelonephritis. Review of Systems Pertinent positives as noted in HPI. All other systems were reviewed and are negative Past Medical History Past Medical History: Hyperlipidemia Additional Past Medical History / Comment(s): concussionx2 History of Any Multi-Drug Resistant Organisms: None Reported Past Surgical History: No Surgical Hx Reported Past Anesthesia/Blood Transfusion Reactions: No Reported Reaction Past Psychological History: No Psychological Hx Reported Smoking Status: Current every day smoker Past Alcohol Use History: Occasional Past Drug Use History: None Reported - Past Family History Father Family Medical History: Coronary Artery Disease (CAD) Mother Family Medical History: Thyroid Disorder Medications and Allergies Home Medications Medication Instructions Recorded Confirmed Type Acetaminophen Tab [Tylenol Tab] 1,000 mg PO Q6HR PRN 03/03/18 03/03/18 History Ibuprofen [Motrin Ib] 400 - 800 mg PO Q6H PRN 03/03/18 03/03/18 History Ciprofloxacin HCl [Cipro] 500 mg PO Q12HR #20 tablet 03/05/18 Rx Hydrocodone/Acetaminophen 1 - 2 tab PO Q6HR PRN 3 Days #24 03/05/18 Rx [Hydrocodon-Acetaminophen 5-325] tab Allergies Allergy/AdvReac Type Severity Reaction Status Date / Time No Known Allergies Allergy Verified 04/27/18 18:31 Physical Exam Vitals: Vital Signs Temp Pulse Resp BP Pulse Ox 04/27/18 21:22 98.7 F 100 20 108/58 97 04/27/18 18:29 98.9 F 113 H 20 126/81 98 Intake and Output 04/27/18 04/27/18 04/27/18 06:59 14:59 22:59 Other: Weight 77.111 kg Constitutional: No acute distress, conversant, pleasant Eyes: Anicteric sclerae, moist conjunctiva, no lid-lag Pupils equal round reactive to light ENMT: NC/AT Oropharynx clear, no erythema, or exudates Neck: Supple, FROM, no masses, or JVD No carotid bruits No thyromegaly Lungs: Clear to auscultation Clear to percussion Normal respiratory effort, no accessory muscle use Cardiovascular: Heart regular in rate and rhythm, No murmurs, gallops, or rubs No peripheral edema Abdominal: Soft, tenderness to palpation of the right flank and right lower quadrant of the abdomen with tenderness to percussion of the right costovertebral angle with voluntary guarding of the abdomen no rebound tenderness nor rigidity Abdomen moving with respiration Normoactive bowel sounds No hepatomegaly, No splenomegaly No palpable mass No abdominal wall hernia noted Skin: Normal temperature, tone, texture, turgor No induration No subcutaneous nodules No rash, lesions No ulcers Extremities: No digital cyanosis No clubbing Pedal pulses intact and symmetrical Radial pulses intact and symmetrical No calf tenderness Psychiatric: Alert and oriented to person, place and time Appropriate affect fair judgment Neuro Muscles Strength 5/5 in all 4 extremities Sensation to light touch grossly present throughout Cranial nerves II-XII grossly intact No focal sensory deficits Lymphatics: no palpable cervical or supraclavicular , or inguinal lymph nodes Results CBC & Chem 7: 04/27/18 19:16 04/27/18 19:16 Labs: Abnormal Lab Results - Last 24 Hours (Table) 04/27/18 04/27/18 04/27/18 Range/Units 19:16 19:16 19:16 WBC 18.3 H (3.8-10.6) k/uL Neutrophils # 16.1 H (1.3-7.7) k/uL Sodium 136 L (137-145) mmol/L Glucose 138 H (74-99) mg/dL Total Protein 5.7 L (6.3-8.2) g/dL Urine Appearance Cloudy H (Clear) Urine Protein 1+ H (Negative) Urine Blood Moderate H (Negative) Ur Leukocyte Esterase Large H (Negative) Urine RBC 23 H (0-5) /hpf Urine WBC 74 H (0-5) /hpf Ur Squamous Epith Cells 8 H (0-4) /hpf Amorphous Sediment Rare H (None) /hpf Urine Mucus Few H (None) /hpf Assessment and Plan Assessment: 32-year-old female with history of palpitations. Admitted under observation with anticipated length of stay of less than 48 hours for sepsis with UTI computed tomography scan showed pyelonephritis of the right kidney. Patient admitted for IV antibiotics. Due to persistent tachycardia chills and rigors Plan: Sepsis secondary to pyelonephritis Acute pyelonephritis of the right kidney IV Rocephin Follow-up blood cultures and urine cultures IV fluid hydration with normal saline Pain control with Toradol Tylenol for fevers DVT prophylaxis on heparin subcu Tachycardia most likely reactive secondary to sepsis Surrogate decision-maker: Patient mother Smita CODE STATUS: Full code Discussed with: Patient, ER, RN Anticipated discharge: <[address]: Home A total of 50 minutes was spent on the care of this complex patient more than 50 % of the time was spent in counseling and care coordination.
[2018-04-27] MEDS: ACETAMINOPHEN TAB 325 MG TAB PO PRN (22:59)
[2018-04-27] MEDS ORDERED: cefTRIAXone IN SWFI 1,000 MG/10 ML SYRINGE IVP SCH (23:00)
[2018-04-27] MEDS: SODIUM CHLORIDE 0.9% 1,000 ML IV SCH (23:00)
[2018-04-27 23:33] VITALS: BMI 27.4
[2018-04-28] MEDS: KETOROLAC 30 MG/ML 1 ML VIAL IVP PRN ×3 (02:22→20:14)
[2018-04-28] MEDS: ACETAMINOPHEN TAB 325 MG TAB PO PRN ×4 (05:22→23:11)
[2018-04-28] MEDS ORDERED: SODIUM CHLORIDE 0.9% 2,000 ML IV ONE (07:18)
[2018-04-28 07:48] LABS: Basophils % (A) 0 %; Eosinophils # (A) 0.1 k/uL (0-0.7); Eosinophils % (A) 1 %; HCT 33.7 % (34.0-46.0); HGB 11.3 gm/dL (11.4-16.0); Lymphocytes % (A) 5 %; MCHC 33.4 g/dL (31.0-37.0); MCV 86.7 fL (80.0-100.0); Monocytes # (A) 0.9 k/uL (0-1.0); Monocytes % (A) 5 %; Neutrophils % (A) 88 %; Platelet Count 225 k/uL (150-450); RBC 3.88 m/uL (3.80-5.40); RDW 13.3 % (11.5-15.5); WBC 18.3 k/uL (3.8-10.6)
[2018-04-28 07:56] LABS: ALT 27 U/L (9-52); AST 16 U/L (14-36); Alkaline Phosphatase 55 U/L (38-126); Anion Gap 6 mmol/L; Blood Urea Nitrogen 8 mg/dL (7-17); Calcium 8.1 mg/dL (8.4-10.2); Carbon Dioxide 21 mmol/L (22-30); Chloride 110 mmol/L (98-107); Glucose 157 mg/dL (74-99); Potassium 3.8 mmol/L (3.5-5.1); Sodium 137 mmol/L (137-145); Total Bilirubin 0.3 mg/dL (0.2-1.3)
[2018-04-28] MEDS: SODIUM CHLORIDE 0.9% 1,000 ML IV SCH ×2 (08:35→14:14)
--- NOTE | 2018-04-28 09:55 | P.PN ---
Subjective Progress Note Date: 04/28/18 Patient tolerated breakfast with some mild nausea, continues to be intermittently febrile, pretty diaphoretic on my exam, reports improvement of right CVA tenderness, on contact precautions due to the presenting with loose stools. Patient continues to be tachycardic. And complains of shortness of breath and chest x-ray indicating no acute cardiopulmonary process Objective - Vital Signs Vital signs: Vital Signs Temp 99.8 F H 04/28/18 08:01 Pulse 113 H 04/28/18 08:01 Resp 16 04/28/18 08:01 BP 94/58 04/28/18 08:01 Pulse Ox 95 04/28/18 08:01 Intake & Output 04/27/18 04/28/18 04/28/18 18:59 06:59 18:59 Intake Total 300 Balance 300 Weight 77.111 kg 77.111 kg Intake: Oral 300 Other: Voiding Method Toilet # Voids 1 - Exam Constitutional: No acute distress, conversant, pleasant Eyes: Anicteric sclerae, moist conjunctiva, no lid-lag, PERRLA ENMT: NC/AT,Oropharynx clear, no erythema, exudates Neck:Supple, FROM, no masses, or JVD, No carotid bruits; No thyromegaly Lungs: Clear to auscultation, Clear to percussion, Normal respiratory effort, no accessory muscle use Cardiovascular: Regular rhythm tachycardic No murmurs, gallops, or rubs no peripheral edema Abdominal: Right CVA tenderness, nom distended, no guarding, no rebound or rigidity, Normoactive bowel sounds No hepatomegaly, No splenomegaly, No palpable mass No abdominal wall hernia noted Skin: Normal temperature, tone, texture, turgor, No induration No subcutaneous nodules, No rash, lesions, No ulcers Extremities:No digital cyanosis No clubbing, Pedal pulses intact and symmetrical Radial pulses intact and symmetrical Normal gait and station, No calf tenderness Psychiatric: Alert and oriented to person, place and time, Appropriate affect Intact judgement Neuro: Muscles Strength 5/5 in all 4 extremities, Sensation to light touch grossly present throughout, Cranial nerves II-XII grossly intact. No focal sensory deficits - Labs CBC & Chem 7: 04/28/18 07:33 04/28/18 07:33 Labs: Abnormal Lab Results - Last 24 Hours (Table) 04/27/18 04/27/18 04/27/18 Range/Units 19:16 19:16 19:16 WBC 18.3 H (3.8-10.6) k/uL Hgb (11.4-16.0) gm/dL Hct (34.0-46.0) % Neutrophils # 16.1 H (1.3-7.7) k/uL Sodium 136 L (137-145) mmol/L Chloride (98-107) mmol/L Carbon Dioxide (22-30) mmol/L Glucose 138 H (74-99) mg/dL Calcium (8.4-10.2) mg/dL Total Protein 5.7 L (6.3-8.2) g/dL Albumin (3.5-5.0) g/dL Urine Appearance Cloudy H (Clear) Urine Protein 1+ H (Negative) Urine Blood Moderate H (Negative) Ur Leukocyte Esterase Large H (Negative) Urine RBC 23 H (0-5) /hpf Urine WBC 74 H (0-5) /hpf Ur Squamous Epith Cells 8 H (0-4) /hpf Amorphous Sediment Rare H (None) /hpf Urine Mucus Few H (None) /hpf 04/28/18 04/28/18 Range/Units 07:33 07:33 WBC 18.3 H (3.8-10.6) k/uL Hgb 11.3 L (11.4-16.0) gm/dL Hct 33.7 L (34.0-46.0) % Neutrophils # 16.0 H (1.3-7.7) k/uL Sodium (137-145) mmol/L Chloride 110 H (98-107) mmol/L Carbon Dioxide 21 L (22-30) mmol/L Glucose 157 H (74-99) mg/dL Calcium 8.1 L (8.4-10.2) mg/dL Total Protein 5.0 L (6.3-8.2) g/dL Albumin 3.0 L (3.5-5.0) g/dL Urine Appearance (Clear) Urine Protein (Negative) Urine Blood (Negative) Ur Leukocyte Esterase (Negative) Urine RBC (0-5) /hpf Urine WBC (0-5) /hpf Ur Squamous Epith Cells (0-4) /hpf Amorphous Sediment (None) /hpf Urine Mucus (None) /hpf Microbiology - Last 24 Hours (Table) 04/27/18 19:16 Urine Culture - Preliminary Urine,Voided Assessment and Plan (1) Sepsis Narrative/Plan: * secondary to acute right-sided pyelonephritis * Leukocytosis continues to be febrile, increase Rocephin to 2 g IV daily * We'll initiate L2 liter normal saline boluses the patient continues to be tachycardic, continue to monitor closely * urine cultures pending, blood cultures pending * Continue supportive management with Tylenol for fevers, zofran for nausea Current Visit: Yes Status: Acute Code(s): A41.9 - SEPSIS, UNSPECIFIED ORGANISM SNOMED Code(s): 49553227 (2) Pyelonephritis Narrative/Plan: * Continue with antibiotic regimen with Rocephin and urine cultures pending * CT abdomen and pelvis not suggesting any abscess or hydronephrosis Current Visit: Yes Status: Acute Code(s): N12 - TUBULO-INTERSTITIAL NEPHRITIS, NOT SPCF ACUTE OR CHRONIC SNOMED Code(s): 13950237 (3) Right flank pain Narrative/Plan: * Supportive therapy with Tylenol and Toradol Current Visit: Yes Status: Acute Code(s): R10.9 - UNSPECIFIED ABDOMINAL PAIN SNOMED Code(s): 492092014 Plan: * Anticipate discharge in 2-3 days
[2018-04-28] MEDS: cefTRIAXone IN SWFI 2,000 MG/20 ML SYRINGE IVP SCH (10:27)
[2018-04-28] MEDS: ENOXAPARIN 40 MG/0.4 ML SYRINGE SQ SCH (10:27)
[2018-04-29] MEDS: SODIUM CHLORIDE 0.9% 1,000 ML IV SCH ×3 (01:26→16:23)
[2018-04-29] MEDS: KETOROLAC 30 MG/ML 1 ML VIAL IVP PRN ×2 (02:20→08:19)
[2018-04-29] MEDS: ACETAMINOPHEN TAB 325 MG TAB PO PRN ×4 (04:43→22:25)
[2018-04-29 06:19] LABS: ALT 31 U/L (9-52); AST 16 U/L (14-36); Albumin 2.7 g/dL (3.5-5.0); Alkaline Phosphatase 58 U/L (38-126); Anion Gap 4 mmol/L; Blood Urea Nitrogen 8 mg/dL (7-17); Carbon Dioxide 23 mmol/L (22-30); Chloride 112 mmol/L (98-107); Glucose 121 mg/dL (74-99); Sodium 139 mmol/L (137-145); Total Bilirubin 0.2 mg/dL (0.2-1.3); Total Protein 4.8 g/dL (6.3-8.2)
[2018-04-29 07:32] LABS: Basophils % (A) 0 %; Eosinophils # (A) 0.1 k/uL (0-0.7); Eosinophils % (A) 1 %; HCT 32.5 % (34.0-46.0); HGB 10.8 gm/dL (11.4-16.0); Lymphocytes # (A) 1.4 k/uL (1.0-4.8); Lymphocytes % (A) 10 %; MCH 29.6 pg (25.0-35.0); MCHC 33.2 g/dL (31.0-37.0); MCV 89.2 fL (80.0-100.0); Mean Platelet Volume 6.9; Monocytes # (A) 0.5 k/uL (0-1.0); Monocytes % (A) 4 %; Neutrophils # (A) 12.2 k/uL (1.3-7.7); Neutrophils % (A) 85 %; Platelet Count 206 k/uL (150-450); RBC 3.64 m/uL (3.80-5.40); RDW 13.4 % (11.5-15.5); WBC 14.4 k/uL (3.8-10.6)
[2018-04-29] MEDS: ENOXAPARIN 40 MG/0.4 ML SYRINGE SQ SCH (08:15)
[2018-04-29] MEDS: cefTRIAXone IN SWFI 2,000 MG/20 ML SYRINGE IVP SCH (10:31)
[2018-04-29] MEDS: HYDROcodone/APAP 5-325MG 1 EACH TAB PO PRN ×2 (16:07→22:26)
[2018-04-29] MEDS ORDERED: SODIUM CHLORIDE 0.9% 1,000 ML IV SCH (16:30)
--- NOTE | 2018-04-29 19:29 | P.PN ---
Subjective Progress Note Date: 04/29/18 Patient was seen and examined. Patient endorses R flank pain, unchanged from initial encounter. Pain is 5-6/10, constant and radiates to under the R ribcage. Patient reports pain is aggravated with deep inspiration. She denies dysuria or chest pain. She also reports fever and chills overnight. Patient reports normal BM today, no diarrhea, first BM since admission. She denies headache, nausea, vomiting, shortness of breath, or palpitations. Objective - Vital Signs Vital signs: Vital Signs Temp 98.3 F 04/29/18 08:07 Pulse 93 04/29/18 08:07 Resp 18 04/29/18 08:07 BP 114/73 04/29/18 08:07 Pulse Ox 99 04/29/18 08:07 Intake & Output 04/28/18 04/29/18 04/29/18 18:59 06:59 18:59 Intake Total 1200 Balance 1200 Intake: Oral 1200 Other: Voiding Method Toilet Toilet # Voids 3 1 - Constitutional General appearance: Present: no acute distress - EENT Eyes: Present: EOMI, normal appearance ENT: Present: hearing grossly normal - Neck Neck: Present: normal ROM - Respiratory Respiratory: bilateral: CTA - Cardiovascular Rhythm: regular Heart sounds: normal: S1, S2 - Gastrointestinal General gastrointestinal: Present: normal bowel sounds, soft, tenderness Localized gastrointestinal: tender: RUQ - Integumentary Integumentary: Present: normal - Psychiatric Psychiatric: Present: A&O x's 3, appropriate affect, intact judgment & insight - Additional findings Additional findings: Back: R flank tenderness to light palpation. + CVA tenderness R side. No vertebral tenderness. - Labs CBC & Chem 7: 04/29/18 07:15 04/29/18 05:48 Labs: Abnormal Lab Results - Last 24 Hours (Table) 04/29/18 04/29/18 Range/Units 05:48 07:15 WBC 14.4 H (3.8-10.6) k/uL RBC 3.64 L (3.80-5.40) m/uL Hgb 10.8 L (11.4-16.0) gm/dL Hct 32.5 L (34.0-46.0) % Neutrophils # 12.2 H (1.3-7.7) k/uL Chloride 112 H (98-107) mmol/L Glucose 121 H (74-99) mg/dL Calcium 8.0 L (8.4-10.2) mg/dL Total Protein 4.8 L (6.3-8.2) g/dL Albumin 2.7 L (3.5-5.0) g/dL Microbiology - Last 24 Hours (Table) 04/27/18 19:16 Blood Culture - Preliminary Blood No Growth after 24 hours 04/27/18 19:16 Urine Culture - Preliminary Urine,Voided Gram Neg Bacilli Assessment and Plan (1) Sepsis Narrative/Plan: * Likely 2/2 to acute R sided pyelonephritis. Patient initially hypotensive and tachycardic on admission (BP 94/58 HR 113) responded well to IVF. Lactic acid 0.9-2.0, within normal limits. Tachycardia resolved, BP normalized while currently on NS at 120 ml/h. Continue NS at 120/h. Continue Ceftriaxone 2g IV daily. Continue Tylenol 650mg Q6 PRN for fever. FU BCx (final) and UCx ( sensitivities). Current Visit: Yes Status: Acute Code(s): A41.9 - SEPSIS, UNSPECIFIED ORGANISM SNOMED Code(s): 36657266 (2) Pyelonephritis Narrative/Plan: * UA shows moderate LE, large blood. UCx positive for GN bacilli. CT scan shows R sided pyelonephritis without abscess or hydro. BCx prelim negative. Continue Ceftriaxone 2g IV daily. Will switch Toradol or Forest for breakthrough pain ( patient states does not help at all). FU UCx and BCx. Current Visit: Yes Status: Acute Code(s): N12 - TUBULO-INTERSTITIAL NEPHRITIS, NOT SPCF ACUTE OR CHRONIC SNOMED Code(s): 28071196 (3) Right flank pain Narrative/Plan: * Likely 2/2 acute R pyelonephritis. CXR negative for acute process. Patient states Tylenol works better than Toradol. Will switch Toradol to Forest PRN. Current Visit: Yes Status: Acute Code(s): R10.9 - UNSPECIFIED ABDOMINAL PAIN SNOMED Code(s): 805637222 Plan: Pending final UCx sensitivities and BCx results for DC. Anticipate DC in 1 day.
[2018-04-29] MEDS: SODIUM CHLORIDE 0.45% 1,000 ML IV SCH (23:58)
[2018-04-29] MEDS: KETOROLAC 30 MG/ML 1 ML VIAL IVP SCH (23:59)
[2018-04-30] MEDS: HYDROcodone/APAP 5-325MG 1 EACH TAB PO PRN ×2 (03:50→10:41)
[2018-04-30] MEDS: ACETAMINOPHEN TAB 325 MG TAB PO PRN (03:50)
[2018-04-30] MEDS: KETOROLAC 30 MG/ML 1 ML VIAL IVP SCH ×2 (06:13→12:03)
[2018-04-30 07:07] LABS: HCT 32.1 % (34.0-46.0); HGB 10.8 gm/dL (11.4-16.0); MCHC 33.5 g/dL (31.0-37.0); MCV 89.4 fL (80.0-100.0); Mean Platelet Volume 6.8; Platelet Count 247 k/uL (150-450); RBC 3.59 m/uL (3.80-5.40); RDW 13.4 % (11.5-15.5); WBC 11.1 k/uL (3.8-10.6)
[2018-04-30 07:17] LABS: Anion Gap 6 mmol/L; Blood Urea Nitrogen 6 mg/dL (7-17); Calcium 8.5 mg/dL (8.4-10.2); Carbon Dioxide 26 mmol/L (22-30); Chloride 110 mmol/L (98-107); Glucose 86 mg/dL (74-99); Potassium 4.1 mmol/L (3.5-5.1); Sodium 142 mmol/L (137-145)
[2018-04-30 08:25] VITALS: BP 115/74; PULSE 78; RESP 19; TEMP 98.4
[2018-04-30] MEDS: ENOXAPARIN 40 MG/0.4 ML SYRINGE SQ SCH (08:35)
[2018-04-30] MEDS: cefTRIAXone IN SWFI 2,000 MG/20 ML SYRINGE IVP SCH (08:35)
[2018-04-30] MEDS: SODIUM CHLORIDE 0.45% 1,000 ML IV SCH (09:04)
--- NOTE | 2018-04-30 09:13 | P.PN ---
Subjective Progress Note Date: 04/30/18 Principal diagnosis: Pyelonephritis Patient was seen and examined. No acute events overnight. One episode of 10/10 colicky pain while urinating yesterday relieved with Toradol shot but otherwise pain well controlled on Tylenol and Firestone. Able to tolerate diet, no N/V. Patient requesting to go home today. Objective - Vital Signs Vital signs: Vital Signs Temp 98.4 F 04/30/18 08:10 Pulse 78 04/30/18 08:10 Resp 19 04/30/18 08:10 BP 115/74 04/30/18 08:10 Pulse Ox 97 04/30/18 08:10 Intake & Output 04/29/18 04/30/18 04/30/18 18:59 06:59 18:59 Intake Total 1800 600 Balance 1800 600 Intake: Oral 1800 600 Other: Voiding Method Toilet # Voids 5 1 - Exam Constitutional: Patient is in no acute distress. Sitting up at the side of the bed. HEENT: NC/AT. Neck: Normal ROM of the neck. No cervical LAD. Resp: Clear to auscultation bilaterally. No wheezing or crackles. CVS: Normal S1 S2. RRR. No murmurs, rubs or gallops. GI: Soft, non-tender to palpation, no masses palpable. : Deferred. MSK: R CVA tenderness. No vertebral tenderness. No LE edema. Neuro: AO x 3 - Labs CBC & Chem 7: 04/30/18 06:35 04/30/18 06:35 Labs: Abnormal Lab Results - Last 24 Hours (Table) 04/30/18 04/30/18 Range/Units 06:35 06:35 WBC 11.1 H (3.8-10.6) k/uL RBC 3.59 L (3.80-5.40) m/uL Hgb 10.8 L (11.4-16.0) gm/dL Hct 32.1 L (34.0-46.0) % Chloride 110 H (98-107) mmol/L BUN 6 L (7-17) mg/dL Microbiology - Last 24 Hours (Table) 04/27/18 19:16 Blood Culture - Preliminary Blood No Growth after 48 hours 04/27/18 19:16 Urine Culture - Final Urine,Voided Escherichia coli - Imaging and Cardiology CT scan - abdomen: report reviewed Assessment and Plan Assessment: Assessment 32 year old F with no PMH presents to the ED for R flank pain and fever. CT AP confirms R pyelonephritis complicated by sepsis. Plan 1. R. Pyelonephritis: UA shows moderate LE, large blood. UCx + E. Coli johnson- sensitive. CT scan shows R sided pyelonephritis without abscess or hydro. BCx 48H prelim negative. Pain controlled with Tylenol, Ketorolac and Firestone PRN. Will switch Ceftriaxone IV to PO Abx in anticipation for discharge. 2. Sepsis: Likely 2/2 to acute R sided pyelonephritis. Patient initially hypotensive and tachycardic on admission (BP 94/58 HR 113) responded well to IVF. Lactic acid 0.9-2.0, within normal limits. Tachycardia resolved, BP normalized while currently on 1/2NS at 120 ml/h. BCx 48H prelim negative, UCx + E. coli johnson-sensitive. Continue Tylenol 650mg Q6 PRN for fever. Continue 1/2NS at 120 ml/h. Will consider switching to PO Abx in anticipation for discharge. 3. Hyperchloremia: Likely 2/2 NS which was previously given. Her Chloride has improved since switching to 1/2NS. 4. Anemia: Hg 10.8 Hct 32.1 MCV 89.4. Likely dilutional - Patient has received IVF through her hospitalization, normal Hg/Hct on presentation. 5. DVT/GI Prophylaxis: Lovenox 40 mg SUBCUT daily. 6. Dispo: Anticipate DC today with close FU with PCP. (1) Pyelonephritis Status: Acute Code(s): N12 - TUBULO-INTERSTITIAL NEPHRITIS, NOT SPCF ACUTE OR CHRONIC SNOMED Code(s): 46290260 (2) Sepsis Status: Acute Code(s): A41.9 - SEPSIS, UNSPECIFIED ORGANISM SNOMED Code(s): 60127274
== END 2018-04-30 16:01 | disposition home or self-care (01) | DRG 872 ==
LOC: EC 18:22 → 6PED 21:42 → OBSVTOIN 04-29 09:14
PROVIDERS: ADMIT Internal Medicine; ATTEND Internal Medicine
DX: A41.51 Sepsis due to Escherichia coli [E. coli] (principal); N10 Acute pyelonephritis; E87.8 Other disorders of electrolyte and fluid balance, not elsewhere classified; D64.9 Anemia, unspecified; E78.5 Hyperlipidemia, unspecified; F17.200 Nicotine dependence, unspecified, uncomplicated; Z82.49 Family history of ischemic heart disease and other diseases of the circulatory system
CPT/HCPCS: 36415; 71046; 74177; 80048; 80053; 81001; 81025; 83605; 83735; 85025; 85027; 87040; 87077; 87086; 87186; 96361; 96374; 96375; 99285

== ENCOUNTER 2018-06-18 10:45 | Emergency (ER) | payer BC ==
[2018-06-18] MEDS ORDERED: LIDOCAINE/EPINEPHR/TETRACAINE 5 ML BOTTLE TOPICAL ONE (11:10)
[2018-06-18] MEDS ORDERED: SULFAMETH-TMP DS STARTER PACK 2 TAB BTL PO STA (11:13)
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
[2018-06-18 12:43] VITALS: BP 143/89; PULSE 78; RESP 20; TEMP 99.2
== END 2018-06-18 12:36 | disposition home or self-care (01) ==
LOC: EC 10:45
DX: L02.31 Cutaneous abscess of buttock (principal); Z87.891 Personal history of nicotine dependence
CPT/HCPCS: 10060; 87070; 87205; 99283

== ENCOUNTER → 2018-12-03 | Outpatient (CLI) | payer OTHER ==
[2018-12-03 12:00] LABS: HCT 37.8 % (34.0-46.0); HGB 12.8 gm/dL (11.4-16.0); MCH 29.6 pg (25.0-35.0); MCHC 33.8 g/dL (31.0-37.0); MCV 87.4 fL (80.0-100.0); Mean Platelet Volume 7.4; Platelet Count 278 k/uL (150-450); RBC 4.32 m/uL (3.80-5.40); RDW 13.3 % (11.5-15.5); WBC 16.2 k/uL (3.8-10.6)
[2018-12-03 15:38] LABS: Creatinine 24 Hour,Urine 1416.2 mg/24hr (800.0-1800.0)
[2018-12-03 17:46] LABS: Total Volume 24 Hour,Urine 2425 mL
[2018-12-03 19:35] LABS: Hemoglobin A1C 5.7 % (4.0-6.0)
[2018-12-04 22:16] LABS: HIV 1 AB Non-Reactive (Non-Reactive); HIV AB P24 Non-Reactive (Non-Reactive); HIV P24 AG Non-Reactive (Non-Reactive)
== END | disposition home or self-care (01) ==
LOC: LABWHC1 10:39
PROVIDERS: ATTEND Obstetrics & Gynecology Obstetrics
DX: O26.831 Pregnancy related renal disease, first trimester (principal); Z3A.00 Weeks of gestation of pregnancy not specified; N19 Unspecified kidney failure
CPT/HCPCS: 36415; 81050; 82575; 83036; 84156; 84450; 84460; 84550; 85027; 86762; 86780; 86850; 86900; 86901; 87340; 87390

== ENCOUNTER 2019-01-20 08:21 | Outpatient (CLI) | payer OTHER ==
[2019-01-20 09:28] VITALS: BP 138/81; PULSE 100; RESP 16; TEMP 98.1
--- NOTE | 2019-01-20 09:53 | US ---
EXAMINATION TYPE: US OB >= 14 wk fetus DATE OF EXAM: 01/20/2019 COMPARISON: None CLINICAL HISTORY: Complete OB Ultrasounddecreased movements TECHNIQUE: Transabdominal (TA) GESTATIONAL AGE / DATING Physician Established: (19 weeks/3 days) EDC: 06/13/2019 Dates by LMP: (19 weeks/3 days) EDC: 06/13/2019 Dates by First Scan: no previous Dates by Current Scan: (20 weeks/0 days) EDC: 06/09/2019 SURVEY IUP: Single PLACENTA: Anterior PREVIA: Complete MACK: 13.6 cm CERVICAL LENGTH (transabdominal: norm > 3.0cm): 3.7 cm BIOMETRY PRESENTATION: Breech LIE: Transverse with head maternal R BPD: 4.9 cm 20 weeks / 5 days HC: 18.0 cm 20 weeks / 3 days AC: 15.1 cm 20 weeks / 2 days FL: 3.2 cm 19 weeks / 6 days ESTIMATED WEIGHT IN GRAMS: 334.9 grams ESTIMATED WEIGHT IN LBS/OZ: 0 lbs. 12 oz. WEIGHT PERCENTAGE BASED ON ESTABLISHED DATES: 85% HC/AC: 1.2 Normal FL/AC: 21 HEART RATE: 140 bpm RHYTHM: Normal Normal growth parameters IMPRESSION: Single intrauterine gestation estimated at 20 weeks 0 days gestation based on current ultrasound nadia urements. Correlate with the physician established gestational age of 19 weeks 3 days. 2. Cardiac activity measures 140 bpm.
[2019-01-20 10:01] LABS: Appearance,Urine Cloudy (Clear); Bacteria,Urine Rare /hpf; Bilirubin,Urine Negative (Negative); Blood,Urine Small (Negative); Color,Urine Yellow; Glucose,Urine (UA) Negative (Negative); Ketones,Urine Negative (Negative); Leukocyte Esterase,Urine Trace (Negative); Mucus,Urine Occasional /hpf; Nitrite,Urine Negative (Negative); PH, Urine 5.5 (5.0-8.0); Protein,Urine Trace (Negative); RBC,Urine 1 /hpf (0-5); Specific Gravity,Urine 1.026 (1.001-1.035); Squamous Epithelial Cell,Urine 7 /hpf (0-4); Urobilinogen,Urine <2.0 mg/dL (<2.0); WBC,Urine 8 /hpf (0-5)
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
== END 2019-01-20 10:15 | disposition home or self-care (01) ==
LOC: FBPOP 08:21
PROVIDERS: ATTEND Obstetrics & Gynecology Obstetrics
DX: O36.8121 Decreased fetal movements, second trimester, fetus 1 (principal); Z3A.19 19 weeks gestation of pregnancy
CPT/HCPCS: 76805; 81001; 99213

== ENCOUNTER 2019-04-04 17:47 | Observation (INO) | payer OTHER ==
[2019-04-04] MEDS ORDERED: ACETAMINOPHEN IV (For NPO) 1,000 MG in EMPTY BAG 1 BAG IVPB ONE (18:45)
[2019-04-04] MEDS: LACTATED RINGERS 1,000 ML IV SCH ×3 (19:00→21:38)
[2019-04-04 19:24] LABS: Basophils % (A) 0 %; Eosinophils # (A) 0.1 k/uL (0-0.7); Eosinophils % (A) 1 %; HCT 35.1 % (34.0-46.0); Lymphocytes # (A) 0.9 k/uL (1.0-4.8); Lymphocytes % (A) 6 %; MCH 29.8 pg (25.0-35.0); MCHC 34.1 g/dL (31.0-37.0); MCV 87.3 fL (80.0-100.0); Mean Platelet Volume 8.1; Monocytes # (A) 0.7 k/uL (0-1.0); Monocytes % (A) 5 %; Neutrophils # (A) 13.4 k/uL (1.3-7.7); Neutrophils % (A) 87 %; Platelet Count 231 k/uL (150-450); RBC 4.02 m/uL (3.80-5.40); RDW 14.5 % (11.5-15.5); WBC 15.3 k/uL (3.8-10.6)
[2019-04-04 19:33] LABS: ALT 16 U/L (9-52); AST 18 U/L (14-36); African American GFR (CKD) >90 (>60 ml/min/1.73 sqM); Anion Gap 10 mmol/L; Blood Urea Nitrogen 11 mg/dL (7-17); Calcium 9.4 mg/dL (8.4-10.2); Carbon Dioxide 19 mmol/L (22-30); Chloride 107 mmol/L (98-107); Glucose 107 mg/dL (74-99); Potassium 4.1 mmol/L (3.5-5.1); Sodium 136 mmol/L (137-145); Uric Acid 4.8 mg/dL (3.7-7.4)
[2019-04-04 19:58] LABS: Appearance,Urine Clear (Clear); Bacteria,Urine Moderate /hpf; Bilirubin,Urine Negative (Negative); Blood,Urine Small (Negative); Color,Urine Yellow; Glucose,Urine (UA) Negative (Negative); Ketones,Urine Negative (Negative); Leukocyte Esterase,Urine Negative (Negative); Mucus,Urine Occasional /hpf; Nitrite,Urine Negative (Negative); PH, Urine 5.5 (5.0-8.0); Protein,Urine Negative (Negative); RBC,Urine 1 /hpf (0-5); Specific Gravity,Urine 1.018 (1.001-1.035); Squamous Epithelial Cell,Urine 2 /hpf (0-4); Urobilinogen,Urine <2.0 mg/dL (<2.0); WBC,Urine 3 /hpf (0-5)
--- NOTE | 2019-04-04 20:30 | US ---
EXAMINATION TYPE: US OB >= 14 wk fetus DATE OF EXAM: 04/04/2019 COMPARISON: CLINICAL HISTORY: 30 weeks, severe abd pain TECHNIQUE: Transabdominal (TA) GESTATIONAL AGE / DATING Physician Established: (30 weeks/0 days) EDC: 06/13/2019 Dates by Current Scan: (30 weeks/5 days) EDC: 06/08/2019 SURVEY IUP: Single PLACENTA: Anterior PREVIA: No Previa MACK: 18.1 cm Borderline Polyhydramnios CERVICAL LENGTH (transabdominal: norm > 3.0cm): 3.3 cm BIOMETRY PRESENTATION: Vertex BPD: 7.9 cm 31 weeks / 4 days HC: 28.8 cm 31 weeks / 5 days AC: 27.5 cm 31 weeks / 4 days FL: 5.7 cm 30 weeks / 1 days ESTIMATED WEIGHT IN GRAMS: 1706 grams ESTIMATED WEIGHT IN LBS/OZ: 3 lbs. 12 oz. WEIGHT PERCENTAGE BASED ON ESTABLISHED DATES: 77.1% HC/AC: 1.1 Normal FL/AC: 20.9 Normal HEART RATE: 143 bpm RHYTHM: Normal Single live IUP measuring 30 weeks 5 days IMPRESSION: There is satisfactory growth compared to 01/20/2019. No complicating process seen.
[2019-04-04 20:45] LABS: Glucose,Whole Blood 113 mg/dL (75-99)
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
--- NOTE | 2019-04-04 21:11 | P.GSCN ---
History of Present Illness Consult date: 04/04/19 Requesting physician: Radha Patten History of present illness: CHIEF COMPLAINT: Upper abdominal pain HISTORY OF PRESENT ILLNESS: The patient is a 33-year-old female who is 30 weeks who presents with 1 month history of diarrhea however new onset in the last 24 hours of bilateral upper abdominal pain. She has been presumptively treated for UTI and kidney infection. Her significant other is at bedside who reports that yesterday she ate moderate amount of fatty foods including eggs for breakfast, hotdogs, and burgers. She is on a specialty diet for gestational diabetes. Since last night into this morning, she reports severe pressure-like epigastric and upper abdominal pain. She presents with a fever of 101.0. She has history of recurrent pyuria treated with antibiotics. An urgent consultation for Gen. surgery was requested by the [facility] team regarding her abdominal pain and evaluation for appendicitis. PAST MEDICAL HISTORY: Please see list PAST SURGICAL HISTORY: Please see list MEDICATIONS: Please see list ALLERGIES: Denies. SOCIAL HISTORY: No current illicit drug use or recent tobacco use FAMILY HISTORY: Please see list REVIEW OF ORGAN SYSTEMS: CONSTITUTIONAL: Has fever. No chills. HEENT: Denies any troubles with the vision or hearing. ENDOCRINE: No reports of hypothyroidism. Has gestational diabetes RESPIRATORY: No recent pneumonias. No shortness of breath CARDIOVASCULAR: No heart attacks or congenital heart disease GI: Reports chronic diarrhea over 1 month. No history of blood in stools MUSCULOSKELETAL: Has occasional joint pain including back pain. NEURO: No seizure disorders or headaches. No recent stroke. PSYCH: No depression or suicidal ideation. GENITOURINARY: Treatment for recurrent draining tract infection, pyelonephritis. HEMATOLOGIC: No personal or family history of DVTs or pulmonary emboli. SKIN: No skin cancer. PHYSICAL EXAM: VITAL SIGNS: Recent temperature 101.0. Vital signs reviewed. GENERAL: Well-developed pleasant in no acute distress. HEENT: No scleral icterus. Extraocular movements grossly intact. Moist buccal mucosa. NECK: Supple without lymphadenopathy. No thyromegaly CHEST: Unlabored respirations. Equal bilateral excursions. CARDIOVASCULAR: Regular rate regular rhythm. Distal 2+ pulses. ABDOMEN: Gravid, uterus above the umbilicus. Tender bilateral upper abdomen right greater than left. MUSCULOSKELETAL: No clubbing, cyanosis. Tender along the right shoulder and right upper back. NEURO: Cranial nerves II to XII within normal limits. No focal or lateralizing signs. PSYCH: Alert and oriented to person, place and time. SKIN: Well-perfused good skin turgor. LABS: Reviewed white count over 11,000, neutrophilia 81% ASSESSMENT: 1. Epigastric and bilateral upper abdominal 2. History of chronic diarrhea 3. History of recurrent urinary tract infections 4. Clinical cholecystitis PLAN: 1. With her recent diet of moderate fatty food intake, sudden onset of epigastric pain including physical exam of upper quadrant--right greater than left--and right upper shoulder including a right upper back pain, findings highly suspicious for acute cholecystitis. 2. Recommend ultrasound of the gallbladder. 3. Current treatment of choice includes IV antibiotics including fat-free diet. 4. Ideally, cholecystectomy 6 weeks 5. Recommend dietary consultation to address both gestational diabetes and low fat diet 6. IV fluid hydration recommended 7. For pain choice, acetaminophen reasonable Thank you for this kind consultation Past Medical History Past Medical History: Hyperlipidemia Additional Past Medical History / Comment(s): concussionx2, kidney infection in 6th grade. UTI's, here in January with cellulitis on back and leg and abcess just below tailbone. hx kidney stones 03/19 History of Any Multi-Drug Resistant Organisms: None Reported Past Surgical History: No Surgical Hx Reported Past Anesthesia/Blood Transfusion Reactions: No Reported Reaction Smoking Status: Never smoker - Past Family History Father Family Medical History: Coronary Artery Disease (CAD), Diabetes Mellitus, Hyperlipidemia Additional Family Medical History / Comment(s): DM Type 2 Mother Family Medical History: Thyroid Disorder Medications and Allergies Home Medications Medication Instructions Recorded Confirmed Type Acetaminophen [Tylenol] 650 mg PO Q4H 01/20/19 04/04/19 History Omeprazole [PriLOSEC] 40 mg PO DAILY 01/20/19 04/04/19 History Pnv No.95/Ferrous Fum/Folic AC 1 each PO DAILY 01/20/19 04/04/19 History [ Multivitamin Tablet] Loperamide [Imodium] 1 tab PO DAILY 04/04/19 04/04/19 History Allergies Allergy/AdvReac Type Severity Reaction Status Date / Time No Known Allergies Allergy Verified 03/25/19 15:42 Surgical - Exam Vital Signs Temp Pulse Resp BP Pulse Ox 101.3 F H 115 H 20 111/65 94 L 04/04/19 18:44 04/04/19 18:44 04/04/19 18:44 04/04/19 18:44 04/04/19 18:44 Results - Labs 04/04/19 19:15 04/04/19 19:15 Abnormal Lab Results - Last 24 Hours (Table) 04/04/19 04/04/19 04/04/19 Range/Units 19:15 19:15 19:30 WBC 15.3 H (3.8-10.6) k/uL Neutrophils # 13.4 H (1.3-7.7) k/uL Lymphocytes # 0.9 L (1.0-4.8) k/uL Sodium 136 L (137-145) mmol/L Carbon Dioxide 19 L (22-30) mmol/L Creatinine 0.49 L (0.52-1.04) mg/dL Glucose 107 H (74-99) mg/dL POC Glucose (mg/dL) (75-99) mg/dL Urine Blood Small H (Negative) Urine Bacteria Moderate H (None) /hpf Urine Mucus Occasional H (None) /hpf 04/04/19 Range/Units 20:23 WBC (3.8-10.6) k/uL Neutrophils # (1.3-7.7) k/uL Lymphocytes # (1.0-4.8) k/uL Sodium (137-145) mmol/L Carbon Dioxide (22-30) mmol/L Creatinine (0.52-1.04) mg/dL Glucose (74-99) mg/dL POC Glucose (mg/dL) 113 H (75-99) mg/dL Urine Blood (Negative) Urine Bacteria (None) /hpf Urine Mucus (None) /hpf Diabetes panel 04/04/19 Range/Units 19:15 Sodium 136 L (137-145) mmol/L Potassium 4.1 (3.5-5.1) mmol/L Chloride 107 (98-107) mmol/L Carbon Dioxide 19 L (22-30) mmol/L BUN 11 (7-17) mg/dL Creatinine 0.49 L (0.52-1.04) mg/dL Glucose 107 H (74-99) mg/dL Calcium 9.4 (8.4-10.2) mg/dL AST 18 (14-36) U/L ALT 16 (9-52) U/L Calcium panel 04/04/19 Range/Units 19:15 Calcium 9.4 (8.4-10.2) mg/dL Pituitary panel 04/04/19 Range/Units 19:15 Sodium 136 L (137-145) mmol/L Potassium 4.1 (3.5-5.1) mmol/L Chloride 107 (98-107) mmol/L Carbon Dioxide 19 L (22-30) mmol/L BUN 11 (7-17) mg/dL Creatinine 0.49 L (0.52-1.04) mg/dL Glucose 107 H (74-99) mg/dL Calcium 9.4 (8.4-10.2) mg/dL Adrenal panel 04/04/19 Range/Units 19:15 Sodium 136 L (137-145) mmol/L Potassium 4.1 (3.5-5.1) mmol/L Chloride 107 (98-107) mmol/L Carbon Dioxide 19 L (22-30) mmol/L BUN 11 (7-17) mg/dL Creatinine 0.49 L (0.52-1.04) mg/dL Glucose 107 H (74-99) mg/dL Calcium 9.4 (8.4-10.2) mg/dL AST 18 (14-36) U/L ALT 16 (9-52) U/L
[2019-04-04 21:21] VITALS: BMI 33.7
[2019-04-04] MEDS: BUTORPHANOL 1 MG/ML 1 ML VIAL IV PRN ×2 (21:23→23:36)
[2019-04-05 01:22] LABS: Glucose,Whole Blood 136 mg/dL (75-99)
[2019-04-05] MEDS: BUTORPHANOL 1 MG/ML 1 ML VIAL IV PRN ×6 (02:27→22:09)
[2019-04-05] MEDS ORDERED: ACETAMINOPHEN TAB 500 MG TAB PO PRN (04:35)
[2019-04-05] MEDS: LACTATED RINGERS 1,000 ML IV SCH ×3 (04:40→16:55)
[2019-04-05 05:47] LABS: Glucose,Whole Blood 119 mg/dL (75-99)
[2019-04-05] MEDS ORDERED: ACETAMINOPHEN TAB 500 MG TAB PO STA (08:14)
--- NOTE | 2019-04-05 08:38 | P.PN ---
Subjective Progress Note Date: 04/05/19 CHIEF COMPLAINT: Abdominal pain HISTORY OF PRESENT ILLNESS: The patient is a 33-year-old female who presented with epigastric and upper abdominal pain. She is feeling better today. Right shoulder pain, right upper back pain and epigastric abdominal pain has improved. No further fevers. She is tolerating low fat, low carb diet. No nausea or emesis. ROS: No reports of nausea and vomiting. Resolved fevers. No new chest pain. No productive sputum PHYSICAL EXAM: VITAL SIGNS: Reviewed CONSTITUTIONAL: Well developed and in no acute distress. EYES: Conjuctivae without sclera icterus. Extraocular movements grossly intact. HEAD, EARS, NOSE, THROAT: Moist buccal mucosa. Head is atraumatic, normoc ephalic. Hears conversational speech. No nasal drainage. NECK: Supple. No thyroidomegaly. RESPIRATORY: Non-labored respirations and equal bilateral excursions. CARDIOVASCULAR: Palpable 2+ radial pulses. Regular rate. Regular rhythm. ABDOMEN: Gravid, uterus above umbilicus. No peritonitis. Epigastric tenderness improved. MUSCULOSKELETAL: No gross deformity of the lower extremities noted. No clubbing. No cyanosis. SKIN: Good skin turgor. Well perfused. NEUROLOGIC: Cranial nerves I through XII grossly intact. No focal or lateralizing signs. PSYCH: Appropriate affect. Alert and oriented to person, place and time. STUDIES: I personally reviewed her gallbladder ultrasound without thickened gallbladder wall. No large gallstones identified. No pericholecystic fluid found. CLINCAL LABS: White blood cell count improved from 15,300 to 11,200 ASSESSMENT: 1. Abdominal pain, upper abdomen and epigastric 2. 30 weeks 3. Leukocyotosis 4. Fever PLAN: 1. Clinically she is improving 2. Await CBC I ordered this morning 3. Should labs improve, continue antibiotics as outpatient for 5 days 4. Recommend hydration 5. Continue low fat, low carb diet 6. Also recommend Zantac for gastroesophageal reflux disease. Objective - Vital Signs Vital signs: Vital Signs Temp 97.2 F L 04/05/19 08:00 Pulse 80 04/05/19 08:00 Resp 16 04/05/19 08:00 BP 109/71 04/05/19 08:00 Pulse Ox 95 04/05/19 08:00 Intake & Output 04/04/19 04/05/19 04/05/19 18:59 06:59 18:59 Weight 93.44 kg Other: # Voids 1 - Labs CBC & Chem 7: 04/05/19 08:15 04/04/19 19:15 Labs: Abnormal Lab Results - Last 24 Hours (Table) 04/04/19 04/04/19 04/04/19 Range/Units 19:15 19:15 19:30 WBC 15.3 H (3.8-10.6) k/uL Neutrophils # 13.4 H (1.3-7.7) k/uL Lymphocytes # 0.9 L (1.0-4.8) k/uL Sodium 136 L (137-145) mmol/L Carbon Dioxide 19 L (22-30) mmol/L Creatinine 0.49 L (0.52-1.04) mg/dL Glucose 107 H (74-99) mg/dL POC Glucose (mg/dL) (75-99) mg/dL Urine Blood Small H (Negative) Urine Bacteria Moderate H (None) /hpf Urine Mucus Occasional H (None) /hpf 04/04/19 04/05/19 04/05/19 Range/Units 20:23 01:18 05:43 WBC (3.8-10.6) k/uL Neutrophils # (1.3-7.7) k/uL Lymphocytes # (1.0-4.8) k/uL Sodium (137-145) mmol/L Carbon Dioxide (22-30) mmol/L Creatinine (0.52-1.04) mg/dL Glucose (74-99) mg/dL POC Glucose (mg/dL) 113 H 136 H 119 H (75-99) mg/dL Urine Blood (Negative) Urine Bacteria (None) /hpf Urine Mucus (None) /hpf Microbiology - Last 24 Hours (Table) 04/04/19 19:30 Urine Culture - Preliminary Urine,Clean Catch Assessment and Plan (1) Upper abdominal pain Current Visit: Yes Status: Acute Code(s): R10.10 - UPPER ABDOMINAL PAIN, UNSPECIFIED SNOMED Code(s): 23646218 (2) 30 weeks gestation of Current Visit: Yes Status: Acute Code(s): Z3A.30 - 30 WEEKS GESTATION OF SNOMED Code(s): 16027041 (3) Leukocytosis Current Visit: Yes Status: Acute Code(s): D72.829 - ELEVATED WHITE BLOOD CELL COUNT, UNSPECIFIED SNOMED Code(s): 693596504 (4) Fever Current Visit: Yes Status: Acute Code(s): R50.9 - FEVER, UNSPECIFIED SNOMED Code(s): 203490431
[2019-04-05 08:43] LABS: Basophils % (A) 0 %; Eosinophils # (A) 0.1 k/uL (0-0.7); Eosinophils % (A) 1 %; HCT 34.3 % (34.0-46.0); HGB 11.3 gm/dL (11.4-16.0); Lymphocytes # (A) 1.1 k/uL (1.0-4.8); Lymphocytes % (A) 10 %; MCHC 32.9 g/dL (31.0-37.0); MCV 88.1 fL (80.0-100.0); Mean Platelet Volume 7.6; Monocytes # (A) 0.5 k/uL (0-1.0); Monocytes % (A) 5 %; Neutrophils # (A) 9.3 k/uL (1.3-7.7); Neutrophils % (A) 83 %; Platelet Count 206 k/uL (150-450); RBC 3.89 m/uL (3.80-5.40); RDW 14.6 % (11.5-15.5); WBC 11.2 k/uL (3.8-10.6)
[2019-04-05] MEDS: ACETAMINOPHEN TAB 500 MG TAB PO PRN ×2 (10:30→19:23)
[2019-04-05 10:31] LABS: Glucose,Whole Blood 161 mg/dL (75-99)
--- NOTE | 2019-04-05 12:07 | P.PN ---
Subjective Progress Note Date: 04/05/19 Principal diagnosis: Acute cholecystitis at 30 weeks gestation Patient still complaining of pain, no further fevers shakes or chills. Fetus is active. Objective - Vital Signs Vital signs: Vital Signs Temp 97.2 F L 04/05/19 08:00 Pulse 80 04/05/19 08:00 Resp 16 04/05/19 08:00 BP 109/71 04/05/19 08:00 Pulse Ox 95 04/05/19 08:00 Intake & Output 04/04/19 04/05/19 04/05/19 18:59 06:59 18:59 Weight 93.44 kg 93.44 kg Other: # Voids 1 - Constitutional General appearance: Present: average body habitus, cooperative - EENT Eyes: Present: PERRLA ENT: Present: hearing grossly normal - Neck Thyroid: bilateral: normal size - Respiratory Respiratory: bilateral: CTA - Cardiovascular Rhythm: regular - Gastrointestinal General gastrointestinal: Present: normal bowel sounds Localized gastrointestinal: tender: diffuse (No rebound or guarding) - Integumentary Integumentary: Present: normal, normal turgor - Neurologic Neurologic: Present: CNII-XII intact - Musculoskeletal Musculoskeletal: Present: gait normal, strength equal bilaterally - Psychiatric Psychiatric: Present: A&O x's 3, appropriate affect, intact judgment & insight - Labs CBC & Chem 7: 04/05/19 08:15 04/04/19 19:15 Labs: Abnormal Lab Results - Last 24 Hours (Table) 04/04/19 04/04/19 04/04/19 Range/Units 19:15 19:15 19:30 WBC 15.3 H (3.8-10.6) k/uL Hgb (11.4-16.0) gm/dL Neutrophils # 13.4 H (1.3-7.7) k/uL Lymphocytes # 0.9 L (1.0-4.8) k/uL Sodium 136 L (137-145) mmol/L Carbon Dioxide 19 L (22-30) mmol/L Creatinine 0.49 L (0.52-1.04) mg/dL Glucose 107 H (74-99) mg/dL POC Glucose (mg/dL) (75-99) mg/dL Urine Blood Small H (Negative) Urine Bacteria Moderate H (None) /hpf Urine Mucus Occasional H (None) /hpf 04/04/19 04/05/19 04/05/19 Range/Units 20:23 01:18 05:43 WBC (3.8-10.6) k/uL Hgb (11.4-16.0) gm/dL Neutrophils # (1.3-7.7) k/uL Lymphocytes # (1.0-4.8) k/uL Sodium (137-145) mmol/L Carbon Dioxide (22-30) mmol/L Creatinine (0.52-1.04) mg/dL Glucose (74-99) mg/dL POC Glucose (mg/dL) 113 H 136 H 119 H (75-99) mg/dL Urine Blood (Negative) Urine Bacteria (None) /hpf Urine Mucus (None) /hpf 04/05/19 04/05/19 Range/Units 08:15 10:29 WBC 11.2 H (3.8-10.6) k/uL Hgb 11.3 L (11.4-16.0) gm/dL Neutrophils # 9.3 H (1.3-7.7) k/uL Lymphocytes # (1.0-4.8) k/uL Sodium (137-145) mmol/L Carbon Dioxide (22-30) mmol/L Creatinine (0.52-1.04) mg/dL Glucose (74-99) mg/dL POC Glucose (mg/dL) 161 H (75-99) mg/dL Urine Blood (Negative) Urine Bacteria (None) /hpf Urine Mucus (None) /hpf Microbiology - Last 24 Hours (Table) 04/04/19 19:30 Urine Culture - Preliminary Urine,Clean Catch Assessment and Plan Assessment: Acute cholecystitis at 30 and one sevenths weeks' gestation. Mild to moderate improvement noted. Patient still complaining of pain. Plan: We will add Zantac, or Pepcid 20 mg twice daily. Continue dietary restrictions. Continue IV antibiotics. White count improved. Attempt transition to oral pa in medication. Possible discharge home tomorrow. Time with Patient: Less than 30
[2019-04-05] MEDS: FAMOTIDINE 20 MG TAB PO SCH ×2 (13:33→20:42)
[2019-04-05] MEDS ORDERED: ACETAMINOPHEN IV (For NPO) 1,000 MG in EMPTY BAG 1 BAG IVPB ONE (14:58)
[2019-04-05 15:30] LABS: Glucose,Whole Blood 97 mg/dL (75-99)
[2019-04-05 15:30] LABS: Glucose,Whole Blood 93 mg/dL (75-99)
[2019-04-05 19:35] LABS: Glucose,Whole Blood 141 mg/dL (75-99)
[2019-04-05 23:34] LABS: Glucose,Whole Blood 76 mg/dL (75-99)
[2019-04-05 23:43] LABS: Glucose,Whole Blood 87 mg/dL (75-99)
[2019-04-06] MEDS: BUTORPHANOL 1 MG/ML 1 ML VIAL IV PRN (04:52)
[2019-04-06] MEDS: ACETAMINOPHEN TAB 500 MG TAB PO PRN (05:56)
[2019-04-06 06:01] LABS: Glucose,Whole Blood 113 mg/dL (75-99)
[2019-04-06] MEDS: FAMOTIDINE 20 MG TAB PO SCH ×2 (08:05→20:36)
[2019-04-06 08:12] LABS: Amylase 60 U/L (30-110); Lipase 132 U/L (23-300)
[2019-04-06 08:28] LABS: Basophils % (A) 0 %; Eosinophils # (A) 0.2 k/uL (0-0.7); Eosinophils % (A) 1 %; HCT 35.7 % (34.0-46.0); Lymphocytes # (A) 1.4 k/uL (1.0-4.8); Lymphocytes % (A) 11 %; MCH 29.4 pg (25.0-35.0); MCHC 33.6 g/dL (31.0-37.0); MCV 87.4 fL (80.0-100.0); Mean Platelet Volume 8.4; Monocytes # (A) 0.6 k/uL (0-1.0); Monocytes % (A) 5 %; Neutrophils # (A) 10.5 k/uL (1.3-7.7); Neutrophils % (A) 81 %; Platelet Count 248 k/uL (150-450); RBC 4.09 m/uL (3.80-5.40); RDW 15.5 % (11.5-15.5)
--- NOTE | 2019-04-06 08:29 | P.PN ---
Subjective Progress Note Date: 04/06/19 CHIEF COMPLAINT: Abdominal pain HISTORY OF PRESENT ILLNESS: The patient is a 33-year-old female who presented with epigastric and upper abdominal pain. She is doing better. Upon discussion with nurse, pain is exacerbated 1 to 2 hrs after eating a "low fat" meal. She reports feeling better today. She spoke with the licensed veterinary technician for her specialty diet for gestational diabetes. She has been afebrile. She is tolerating diet and had formed stools. ROS: No reports of nausea and vomiting. Resolved fevers. No new chest pain. No productive sputum PHYSICAL EXAM: VITAL SIGNS: Reviewed CONSTITUTIONAL: Well developed and in no acute distress. EYES: Conjuctivae without sclera icterus. Extraocular movements grossly intact. HEAD, EARS, NOSE, THROAT: Moist buccal mucosa. Head is atraumatic, normocephal ic. Hears conversational speech. No nasal drainage. NECK: Supple. No thyroidomegaly. RESPIRATORY: Non-labored respirations and equal bilateral excursions. CARDIOVASCULAR: Palpable 2+ radial pulses. Regular rate. Regular rhythm. ABDOMEN: Gravid, uterus above umbilicus. Decreased epigastric tenderness MUSCULOSKELETAL: No gross deformity of the lower extremities noted. No clubbing. No cyanosis. SKIN: Good skin turgor. Well perfused. NEUROLOGIC: Cranial nerves I through XII grossly intact. No focal or lateralizing signs. PSYCH: Appropriate affect. Alert and oriented to person, place and time. STUDIES: I personally reviewed her gallbladder ultrasound without thickened gallbladder wall. No large gallstones identified. No pericholecystic fluid found. CLINCAL LABS: White blood cell count improved from 15,300 to 11,200. Lipase is normal. WBC was trending downward. ASSESSMENT: 1. Abdominal pain, upper abdomen and epigastric 2. 30 weeks 3. Leukocyotosis 4. Fever PLAN: 1. With clinical cholecystitis NO FAT diet advised. 2. Continue with home antibiotics for 5 more days. 3. Education of reading nutrition labels for 0 g fat described including looking for low sugar options 4. Her significant other also a valuable help for education for low fat, low sugar high protein diet. 5. Patient clear for discharge from surgical standpoint. 6. Outpatient followup 6 weeks advised. Objective - Vital Signs Vital signs: Vital Signs Temp 97.6 F 04/06/19 00:00 Pulse 72 04/06/19 00:00 Resp 14 04/06/19 00:00 BP 110/70 04/06/19 00:00 Pulse Ox 95 04/06/19 00:00 Intake & Output 04/05/19 04/06/19 04/06/19 18:59 06:59 18:59 Weight 93.44 kg Other: # Voids 1 # Bowel Movements 2 - Labs CBC & Chem 7: 04/06/19 07:50 04/04/19 19:15 Labs: Abnormal Lab Results - Last 24 Hours (Table) 04/05/19 04/05/19 04/05/19 Range/Units 08:15 10:29 19:27 WBC 11.2 H (3.8-10.6) k/uL Hgb 11.3 L (11.4-16.0) gm/dL Neutrophils # 9.3 H (1.3-7.7) k/uL POC Glucose (mg/dL) 161 H 141 H (75-99) mg/dL 04/06/19 Range/Units 05:59 WBC (3.8-10.6) k/uL Hgb (11.4-16.0) gm/dL Neutrophils # (1.3-7.7) k/uL POC Glucose (mg/dL) 113 H (75-99) mg/dL Microbiology - Last 24 Hours (Table) 04/04/19 19:30 Urine Culture - Final Urine,Clean Catch Assessment and Plan (1) Upper abdominal pain Current Visit: Yes Status: Acute Code(s): R10.10 - UPPER ABDOMINAL PAIN, UNSPECIFIED SNOMED Code(s): 71093752 (2) 30 weeks gestation of Current Visit: Yes Status: Acute Code(s): Z3A.30 - 30 WEEKS GESTATION OF SNOMED Code(s): 17705452 (3) Leukocytosis Current Visit: Yes Status: Acute Code(s): D72.829 - ELEVATED WHITE BLOOD CELL COUNT, UNSPECIFIED SNOMED Code(s): 581755293 (4) Fever Current Visit: Yes Status: Acute Code(s): R50.9 - FEVER, UNSPECIFIED SNOMED Code(s): 330995904 (5) Gestational diabetes Current Visit: Yes Status: Acute Code(s): O24.419 - GESTATIONAL DIABETES MELLITUS IN , UNSP CONTROL SNOMED Code(s): 62213444
[2019-04-06 10:19] LABS: Glucose,Whole Blood 117 mg/dL (75-99)
[2019-04-06] MEDS ORDERED: Acetaminophen-Codeine 300-30mg TAB PO PRN (10:26)
[2019-04-06] MEDS: LACTATED RINGERS 1,000 ML IV SCH ×2 (10:29→10:30)
--- NOTE | 2019-04-06 10:48 | P.PN ---
Subjective Progress Note Date: 04/06/19 Principal diagnosis: Acute cholecystitis at 30 weeks gestation Patient still requiring Stadol, but of decreased frequency. Still complains of abdominal pain, 6 out of 10 currently. Pain is worse one and a half to 2 hours postprandial. Fetus active. Objective - Vital Signs Vital signs: Vital Signs Temp 97.2 F L 04/06/19 08:00 Pulse 84 04/06/19 08:00 Resp 16 04/06/19 08:00 BP 105/67 04/06/19 08:00 Pulse Ox 95 04/06/19 08:00 Intake & Output 04/05/19 04/06/19 04/06/19 18:59 06:59 18:59 Weight 93.44 kg Other: # Voids 1 # Bowel Movements 2 - Constitutional General appearance: Present: average body habitus, cooperative, mild distress - EENT Eyes: Present: PERRLA ENT: Present: hearing grossly normal - Neck Neck: Present: normal ROM - Respiratory Respiratory: bilateral: CTA - Cardiovascular Rhythm: regular Heart sounds: normal: S1, S2 - Gastrointestinal General gastrointestinal: Present: normal bowel sounds Localized gastrointestinal: tender: diffuse (mostly upper abdomen, R>L) - Integumentary Integumentary: Present: normal, normal turgor - Neurologic Neurologic: Present: CNII-XII intact - Musculoskeletal Musculoskeletal: Present: gait normal - Psychiatric Psychiatric: Present: A&O x's 3, appropriate affect, intact judgment & insight - Labs CBC & Chem 7: 04/06/19 07:50 04/04/19 19:15 Labs: Abnormal Lab Results - Last 24 Hours (Table) 04/05/19 04/06/19 04/06/19 Range/Units 19:27 05:59 07:50 WBC 13.0 H (3.8-10.6) k/uL Neutrophils # 10.5 H (1.3-7.7) k/uL POC Glucose (mg/dL) 141 H 113 H (75-99) mg/dL 04/06/19 Range/Units 10:09 WBC (3.8-10.6) k/uL Neutrophils # (1.3-7.7) k/uL POC Glucose (mg/dL) 117 H (75-99) mg/dL Microbiology - Last 24 Hours (Table) 04/04/19 19:30 Urine Culture - Final Urine,Clean Catch Assessment and Plan Assessment: Acute cholecystitis at 30 weeks gestation, hospital day #2. Gradual improvement noted. Plan: I discussed with the patient the option of discharge home today. She is uncomfortable with discharge, stating that the pain is still coming in waves and Stadol as needed. We will therefore transitioned to Tylenol No. 3 today, 1-2 pills every 4-6 hours. I have reminded her that a no fat diet is important, not low-fat. We will likely discharge home on Augmentin 875 mg twice daily for 5-7 days. She will follow-up with Dr. Ferrara for likely cholecystectomy. If able to successfully transitioned to oral pain medication, likely discharge home in the morning. Time with Patient: Greater than 30
[2019-04-06 15:18] LABS: Glucose,Whole Blood 140 mg/dL (75-99)
[2019-04-06] MEDS: Acetaminophen-Codeine 300-30mg TAB PO PRN ×2 (16:45→20:36)
[2019-04-06 19:40] LABS: Glucose,Whole Blood 112 mg/dL (75-99)
[2019-04-06 22:14] LABS: Glucose,Whole Blood 117 mg/dL (75-99)
[2019-04-07] MEDS: SIMETHICONE 80 MG CHEWABLE PO PRN ×2 (00:06→08:32)
[2019-04-07] MEDS: Acetaminophen-Codeine 300-30mg TAB PO PRN ×3 (00:07→08:31)
[2019-04-07 00:25] VITALS: RESP 14
[2019-04-07 07:31] LABS: Glucose,Whole Blood 115 mg/dL (75-99)
[2019-04-07 07:43] VITALS: BP 115/63; PULSE 80; TEMP 98.3
[2019-04-07] MEDS: FAMOTIDINE 20 MG TAB PO SCH (08:32)
--- NOTE | 2019-04-07 12:54 | P.DS ---
Providers Date of admission: 04/06/19 13:32 Expected date of discharge: 04/07/19 Attending physician: Radha Patten Consults: 04/04/19 20:27 Consult Physician Stat Consulting Provider: Radha Cervantes Consult Reason/Comments: rule out appedicitis Do you want consulting provider notified?: Yes Primary care physician: Stated None - Discharge Diagnosis(es) (1) 30 weeks gestation of Status: Acute (2) Acute cholecystitis Status: Acute (3) Gestational diabetes Status: Acute Hospital Course: This is a 33 yo at 30 weeks of gestation that presented on wednesday 04/04 with c/o upper abdominal pain and diarrhea. she denies any VB/LOF and stated the baby has been active. she has been receiving routine care with myself. she has been treated a few times for UTI but otherwise has been uncomplicated. she has a h/o long standing diarrhea and has been using immodium for symptomatic relief during the . she was seen by Dr. Patten initially, and then general surgery was consulted. US of the gallbladder c/w cholecystitis. she initially had fever and leukocytosis but this improved over the course of her admission. she was quite painful on admission and treated with stadol, she was switched to po tylenol # 3 and states it is helping along with mylicon and pepcid. she did see the envelope addresser in addition given she has a dx of gestation DM, and also now needs to be on a low fat diet. she will need to follow up with general surgery post as well. she is feeling better this am and is ok with d/c home. she will continue with augmentin 875 bid per general surgery, mylicon and pepcid Patient Condition at Discharge: Good Plan - Discharge Summary Discharge Rx Participant: No New Discharge Prescriptions: No Action Acetaminophen [Tylenol] 650 mg PO Q4H Pnv No.95/Ferrous Fum/Folic AC [ Multivitamin Tablet] 1 each PO DAILY Omeprazole [PriLOSEC] 40 mg PO DAILY Loperamide [Imodium] 1 tab PO DAILY Discharge Medication List Acetaminophen [Tylenol] 650 mg PO Q4H 01/20/19 [History] Omeprazole [PriLOSEC] 40 mg PO DAILY 01/20/19 [History] Pnv No.95/Ferrous Fum/Folic AC [ Multivitamin Tablet] 1 each PO DAILY 01/20/19 [History] Loperamide [Imodium] 1 tab PO DAILY 04/04/19 [History] Follow up Appointment(s)/Referral(s): Radha Cervantes MD [STAFF PHYSICIAN] - 06/17/19 Patient Instructions/Handouts: Cholecystitis (GEN), Low Fat Diet (DC) Activity/Diet/Wound Care/Special Instructions: Please check nutrition labels for No fat options preferrably. Eats vegetables. Avoid Avocado which is high in fat. Do not cook with oils. she is to continue with augmentin 875 bid for 5 days, mylicon qid and then pepcid 20mg bid as well. she is also given Rx for tylenol #3 for pain as needed. I did encourage her to not take them if not needed. Discharge Disposition: HOME SELF-CARE
--- NOTE | 2019-04-07 13:06 | US ---
EXAMINATION TYPE: US gallbladder DATE OF EXAM: 04/04/2019 COMPARISON: CLINICAL HISTORY: right upper quadrant pain. 30 weeks EXAM MEASUREMENTS: Liver Length: 19.9 cm Gallbladder Wall: 0.2 cm CBD: 0.3 cm Right Kidney: 14.1 x 5.3 x 4.8 cm Pancreas: Pancreatic body and tail obscured. Liver: appears enlarged in size Gallbladder: wnl Evidence for sonographic Jimenez's sign: neg CBD: wnl Right Kidney: Dilated renal pelvis vs mild hydronephrosis IMPRESSION: 1. Correlate for hepatomegaly. 2. Mild right hydronephrosis.
== END 2019-04-07 10:10 | disposition home or self-care (01) ==
LOC: FBPOP 17:47 → 4FBP 20:23 → INTOOBSV 04-06 13:32 → OBSVTOIN 04-06 13:32 → UNDODISIN 04-07 10:10
PROVIDERS: ADMIT Obstetrics & Gynecology; ATTEND Obstetrics & Gynecology
DX: O99.613 Diseases of the digestive system complicating pregnancy, third trimester (principal); K81.0 Acute cholecystitis; Z3A.30 30 weeks gestation of pregnancy; O24.410 Gestational diabetes mellitus in pregnancy, diet controlled; O99.283 Endocrine, nutritional and metabolic diseases complicating pregnancy, third trimester; E78.5 Hyperlipidemia, unspecified; O99.89 Other specified diseases and conditions complicating pregnancy, childbirth and the puerperium; N13.30 Unspecified hydronephrosis; K21.9 Gastro-esophageal reflux disease without esophagitis; Z79.899 Other long term (current) drug therapy; Z87.440 Personal history of urinary (tract) infections; Z87.2 Personal history of diseases of the skin and subcutaneous tissue; Z87.442 Personal history of urinary calculi; Z82.49 Family history of ischemic heart disease and other diseases of the circulatory system; Z83.3 Family history of diabetes mellitus; Z83.49 Family history of other endocrine, nutritional and metabolic diseases
CPT/HCPCS: 59025; 96376 ×3; 99215; 96361 ×2; 96365; 96367; 96375; 80048; 82150; 83690; 84450; 84460; 84550; 85025 ×3; 81001; 87086; 76805; 76705; G0378 ×5; J0595 ×3; J0696 ×3; J0131 ×2

== ENCOUNTER 2019-05-22 03:01 | Inpatient (IN) | payer OTHER ==
[2019-05-22] MEDS ORDERED: LACTATED RINGERS 1,000 ML IV ONE (04:01)
[2019-05-22] MEDS ORDERED: CITRIC ACID-SODIUM CITRATE 15 ML CUP PO ONE (04:01)
[2019-05-22 04:16] LABS: Glucose,Whole Blood 132 mg/dL (75-99)
[2019-05-22 04:38] LABS: Basophils % (A) 0 %; Eosinophils # (A) 0.1 k/uL (0-0.7); Eosinophils % (A) 1 %; HCT 37.8 % (34.0-46.0); HGB 13.1 gm/dL (11.4-16.0); Lymphocytes # (A) 2.2 k/uL (1.0-4.8); Lymphocytes % (A) 16 %; MCH 29.9 pg (25.0-35.0); MCHC 34.6 g/dL (31.0-37.0); MCV 86.4 fL (80.0-100.0); Mean Platelet Volume 8.8; Monocytes # (A) 0.6 k/uL (0-1.0); Monocytes % (A) 5 %; Neutrophils # (A) 10.2 k/uL (1.3-7.7); Neutrophils % (A) 76 %; Platelet Count 243 k/uL (150-450); RBC 4.38 m/uL (3.80-5.40); RDW 15.9 % (11.5-15.5); WBC 13.3 k/uL (3.8-10.6)
[2019-05-22 05:05] VITALS: BMI 32.8
[2019-05-22] MEDS ORDERED: ONDANSETRON 4 MG/2 ML VIAL ONE (06:08)
[2019-05-22] MEDS ORDERED: DEXAMETHASONE SOD PHOS (MDV) 100 MG/10 ML VIAL ONE (06:08)
[2019-05-22] MEDS ORDERED: LACTATED RINGERS 1,000 ML BAG IV ONE (06:08)
[2019-05-22] MEDS ORDERED: fentaNYL (PF) 50 MCG/ML 2 ML AMP ONE (06:08)
[2019-05-22] MEDS ORDERED: SUCCINYLCHOLINE CHLORIDE 100 MG/5 ML SYR IV ONE (06:08)
[2019-05-22] MEDS ORDERED: KETOROLAC 30 MG/ML 1 ML VIAL ONE (06:08)
[2019-05-22] MEDS ORDERED: PROPOFOL 10 MG/ML 20 ML VIAL IV ONE (06:08)
[2019-05-22] MEDS ORDERED: HYDROmorphone (PF) 1 MG/ML ONE (06:08)
[2019-05-22] MEDS ORDERED: MIDAZOLAM 2 MG/2 ML VIAL ONE (06:08)
[2019-05-22] MEDS ORDERED: OXYTOCIN 10 UNIT/ML 1 ML VIAL ONE (06:08)
--- NOTE | 2019-05-22 07:12 | P.HPOB ---
History of Present Illness H&P Date: 05/22/19 (My water broke 2:30 this morning) Chief Complaint: My water broke at 2:30 this morning This is a 33-year-old white female 1 para 0 EDC 06/13/2019 at 36-6/7 weeks' gestation. Patient presented with spontaneous amniorrhexis, clear fluid, at 0230 hours. Fetus is been active throughout the . She is having mild to moderate uterine contractions. She denies vaginal bleeding. is known breech presentation, and plan was for next week. Past medical history is significant for a sacral abscess that is currently being treated with Keflex. Patient has a history of dermatofibroma of the arm, hyperglycemia, hyperlipidemia, kidney failure in 2018, history of kidney infections. Past surgical history is significant for left knee arthroscopy. Current medications Keflex 500 mg twice daily, glyburide for gestational diabetes. Family history significant for diabetes, thyroiditis, heart disease. 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 She is single, former tobacco smoker one pack per day. Obstetric history is significant for blood type B positive, rubella status immune. VDRL testing, urine culture, hepatitis B surface antigen, HIV testing, gonorrhea and chlamydia cultures, group B strep cultures all negative. One-hour Glucola 158, three-hour GTT consistent with gestational diabetes. ALLERGIES none known. On exam patient is 5 foot 6 inches, 203 pounds, initial blood pressure 140/81, 97% O2 saturation, temperature 98.6, respirations 18, pulse 89. The general physical exam is within normal limits. The chest is clear in all montoya. Extremities reveal no edema. Bedside ultrasound confirms breech presentation, head in the left upper quadrant. Blood sugar on admission 132. Impression: 36-6/7 weeks intrauterine , breech presentation, gestational diabetes with hyperglycemia on admission, spontaneous amniorrhexis, being treated currently for a sacral abscess. Plan after discussion with anesthesia, plan is for general anesthetic. We will proceed with primary low transverse section. Antibiotics are given. All questions answered. Review of Systems Constitutional: Reports as per HPI Past Medical History Past Medical History: Hyperlipidemia Additional Past Medical History / Comment(s): concussionx2, kidney infection in 6th grade. UTI's, here in January with cellulitis on back and leg and abcess just below tailbone. hx kidney stones 6/19 History of Any Multi-Drug Resistant Organisms: None Reported Past Surgical History: No Surgical Hx Reported Past Anesthesia/Blood Transfusion Reactions: No Reported Reaction Past Psychological History: No Psychological Hx Reported Smoking Status: Never smoker Past Alcohol Use History: Occasional Past Drug Use History: None Reported - Past Family History Father Family Medical History: Coronary Artery Disease (CAD), Diabetes Mellitus, Hyperlipidemia Additional Family Medical History / Comment(s): DM Type 2 Mother Family Medical History: Thyroid Disorder Medications and Allergies Home Medications Medication Instructions Recorded Confirmed Type Acetaminophen [Tylenol] 2 tab PO Q4H 01/20/19 05/22/19 History Pnv No.95/Ferrous Fum/Folic AC 1 each PO DAILY 01/20/19 05/22/19 History [ Multivitamin Tablet] Cephalexin [Keflex] 1 tab PO BID 05/22/19 05/22/19 History glyBURIDE [Diabeta] 1 tab PO DAILY 05/22/19 05/22/19 History Allergies Allergy/AdvReac Type Severity Reaction Status Date / Time No Known Allergies Allergy Verified 03/25/19 15:42 Exam Vital Signs Temp Pulse Resp BP Pulse Ox 05/22/19 04:01 98.6 F 96 18 140/81 97 05/22/19 03:26 98.6 F 89 18 140/81 98 Intake and Output 05/21/19 05/22/19 05/22/19 22:59 06:59 14:59 Other: Weight 92.079 kg See dictation under HPI please Results Result Diagrams: 05/22/19 04:27 Abnormal Lab Results - Last 24 Hours (Table) 05/22/19 05/22/19 Range/Units 04:15 04:27 WBC 13.3 H (3.8-10.6) k/uL RDW 15.9 H (11.5-15.5) % Neutrophils # 10.2 H (1.3-7.7) k/uL POC Glucose (mg/dL) 132 H (75-99) mg/dL Assessment and Plan Assessment: 36-6/7 weeks intrauterine , sacral abscess being treated with Keflex, spontaneous amniorrhexis, breech presentation, hyperglycemia. Plan: We will proceed with primary low transverse section. All questions answered. Anesthesia team present, choosing general anesthetic. Time with Patient: Less than 30
--- NOTE | 2019-05-22 07:19 | P.OP ---
Date of Procedure: 05/22/19 Preoperative Diagnosis: 36-6/7 weeks intrauterine , breech presentation, spontaneous amniorrhexis, gestational diabetes with hyperglycemia. Active sacral abscess, being treated with Keflex. Postoperative Diagnosis: Same, breech presentation liveborn male . Normal-appearing tubes and ovaries bilaterally. Procedure(s) Performed: Primary low transverse section Anesthesia: JUSTIN Surgeon: Radha Patten Channeler Outsole #1: Cierra Gandhi Estimated Blood Loss (ml): 600 IV fluids (ml): 1,100 Urine output (ml): 75 Pathology: other (Placenta) Condition: stable Disposition: PACU Description of Procedure: Patient is brought to the operating suite after antibiotics are given. The abdomen is prepped and draped in usual sterile fashion. The appropriate timeout is performed to assure proper patient and procedural identification. White catheter placed to direct drainage. General anesthetic is administered per the anesthesia team. A low transverse uterine incision is made carried down through the subcutaneous tissue to the fascia. Fascia is isolated, scored, extended bilaterally with curved Pickard scissors. Peritoneum is next identified and incised, there is no bowel or bladder involvement. Bladder blade is placed over the dome of the bladder. A low transverse uterine incision is made. Artificial amniorrhexis reveals clear fluid. The incision is extended with blunt dissection. The is in the sacrum anterior position and is delivered through the incision. The legs are delivered by Pinard maneuver. A wet blue towel was placed around the trunk and the infant is gently brought through the incision. The upper extremities are delivered again by Pinard maneuver with 180 rotation for the second arm. Head is delivered in a flexed position. Patient is officially delivered of a liveborn male infant at 0624 hours. Umbilical cord is doubly clamped and ligated, he is handed to waiting nurses for evaluation where scores of 8 and 8 at one and 5 minutes respectively are given. Infant weight 8 lbs. 0 oz., or 3640 g. A section of cord is sent to the lab and held if needed. The placenta is delivered manually, inspected and noted to be intact with trivascular cord. Placental delivery time 0625 hours. Uterus is now externalized and massaged. It is swept clean with a sterile sponge to avoid any retained products of conception. Both tubes and ovaries appear normal to inspection, no uterine anomalies are appreciated. The uterus is closed in a two-step fashion with 0 Vicryl suture. First layer is running locking, second layer imbricated for excellent reapproximation. Hemostasis is also very good. The abdomen is suctioned with suction on guard posterior to the uterus. Uterus is gently placed back into the abdominal cavity. Bilateral gutters are inspected and cleaned. Peritoneum is allowed to close by secondary intention. Fascia is closed in a running stitch of 0 Vicryl suture. Subcutaneous tissue is irrigated, noted to be clean and dry. It is reapproximated with 3-0 Vicryl in a running manner. 4-0 undyed Monocryl is used for final skin closure. Steri- Strips and Mastisol are applied to the wound. Uterus is massaged. White is not ed to be draining clear urine. Total estimated blood loss 600 mL, fluid replacement 1100 mL, urine 75 mL's. Patient is brought back to recovery room in good condition with a pulse of 95, blood pressure 129/75. All sponge needle and instrument counts are correct at the end of our procedure. Patient and her are requesting circumcision further son.
[2019-05-22] MEDS ORDERED: ZOLPIDEM 5 MG TAB PO PRN (07:20)
[2019-05-22] MEDS ORDERED: Acetaminophen-Codeine 300-30mg TAB PO PRN (07:20)
[2019-05-22] MEDS ORDERED: ONDANSETRON 4 MG/2 ML VIAL IVP PRN (07:20)
[2019-05-22] MEDS ORDERED: diphenhydrAMINE 50 MG/ML 1 ML VIAL IVP PRN (07:20)
[2019-05-22] MEDS ORDERED: IBUPROFEN 600 MG TAB PO PRN (07:20)
[2019-05-22] MEDS ORDERED: METOCLOPRAMIDE 5 MG/ML 2 ML VIAL IVP PRN (07:20)
[2019-05-22] MEDS ORDERED: KETOROLAC 30 MG/ML 1 ML VIAL IVP PRN (07:20)
[2019-05-22] MEDS ORDERED: NALOXONE 0.4 MG/ML 1 ML VIAL IV PRN ×2 (07:23→08:36)
[2019-05-22] MEDS ORDERED: OXYTOCIN 20 UNITS/1000 ML NS 1,000 ML IV SCH (07:30)
[2019-05-22] MEDS ORDERED: HYDROmorphone PCA 10 MG/50 ML BAG IV PRN (08:36)
[2019-05-22] MEDS: CEPHALEXIN 500 MG CAP PO SCH ×3 (08:49→21:22)
[2019-05-22 13:38] LABS: Hemoglobin A1C 6.8 % (4.0-6.0)
[2019-05-22] MEDS: HYDROcodone/APAP 5-325MG 1 EACH TAB PO PRN (20:15)
[2019-05-22] MEDS: LACTATED RINGERS 1,000 ML IV SCH ×2 (21:00→21:01)
[2019-05-22] MEDS: ETODOLAC 400 MG TAB PO SCH (22:03)
[2019-05-22] MEDS: SIMETHICONE 80 MG CHEWABLE PO PRN (22:59)
[2019-05-23] MEDS: HYDROcodone/APAP 5-325MG 1 EACH TAB PO PRN ×3 (00:19→15:58)
[2019-05-23 01:26] LABS: Glucose,Whole Blood 100 mg/dL (75-99)
[2019-05-23] MEDS ORDERED: ONDANSETRON 4 MG/2 ML VIAL IVP PRN (01:34)
[2019-05-23] MEDS: HYDROmorphone 1 MG/ML 1 ML SYRINGE IVP PRN ×2 (02:21→07:06)
[2019-05-23] MEDS: SIMETHICONE 80 MG CHEWABLE PO PRN ×2 (07:05→20:01)
[2019-05-23 07:21] LABS: Basophils % (A) 0 %; Eosinophils % (A) 0 %; HCT 33.6 % (34.0-46.0); HGB 11.3 gm/dL (11.4-16.0); Lymphocytes # (A) 2.2 k/uL (1.0-4.8); Lymphocytes % (A) 13 %; MCH 29.6 pg (25.0-35.0); MCHC 33.7 g/dL (31.0-37.0); MCV 87.9 fL (80.0-100.0); Mean Platelet Volume 8.7; Monocytes # (A) 0.7 k/uL (0-1.0); Monocytes % (A) 4 %; Neutrophils # (A) 13.7 k/uL (1.3-7.7); Neutrophils % (A) 82 %; Platelet Count 243 k/uL (150-450); RBC 3.82 m/uL (3.80-5.40); RDW 14.4 % (11.5-15.5); WBC 16.8 k/uL (3.8-10.6)
[2019-05-23] MEDS: ETODOLAC 400 MG TAB PO SCH ×2 (09:38→20:36)
[2019-05-23] MEDS: CEPHALEXIN 500 MG CAP PO SCH ×3 (09:39→22:02)
[2019-05-23] MEDS: LACTATED RINGERS 1,000 ML IV SCH ×2 (09:44→15:11)
--- NOTE | 2019-05-23 10:52 | P.PNOBGPC ---
Subjective - Subjective Principal diagnosis: POD 1 LTCS for breech presentation Interval history: Pt states she had a rough night with nausea, but is feeling better this am, she states pain is relatively well controlled, she is tolerating clear liquids. she is ambulating and voiding without difficulty Patient reports: Reports appetite normal, Reports voiding normally, Reports pain well controlled, Reports ambulating normally [place]: doing well (on bili blanket. ) Objective - Vital Signs Latest vital signs: Vital Signs Temp Pulse Resp BP Pulse Ox 05/23/19 08:00 98.3 F 81 18 125/65 96 05/23/19 03:57 99.0 F 87 18 133/68 05/23/19 00:00 98.4 F 91 20 145/81 05/22/19 20:00 98.4 F 85 18 127/88 95 05/22/19 16:00 98.1 F 87 16 130/78 Intake and Output 05/22/19 05/23/19 05/23/19 22:59 06:59 14:59 Output Total 750 Balance -750 Output: Urine 750 Other: Voiding Method Indwelling Catheter Toilet Toilet # Voids 1 # Emeses 1 1 - Exam Extremities: Present: edema Abdomen: Present: normal appearance, soft Incision: Present: normal, dry, intact Uterus: Present: normal, firm - Labs Labs: Abnormal Lab Results - Last 24 Hours (Table) 05/22/19 05/23/19 05/23/19 Range/Units 04:27 01:25 06:23 WBC 16.8 H (3.8-10.6) k/uL Hgb 11.3 L (11.4-16.0) gm/dL Hct 33.6 L (34.0-46.0) % Neutrophils # 13.7 H (1.3-7.7) k/uL POC Glucose (mg/dL) 100 H (75-99) mg/dL Hemoglobin A1c 6.8 H (4.0-6.0) % Assessment and Plan (1) 36 weeks gestation of Current Visit: Yes Status: Acute Code(s): Z3A.36 - 36 WEEKS GESTATION OF SNOMED Code(s): 89934186 (2) Breech presentation Current Visit: Yes Status: Acute Code(s): O32.1XX0 - MATERNAL CARE FOR BREECH PRESENTATION, UNSP SNOMED Code(s): 8852942 (3) SROM (spontaneous rupture of membranes) Current Visit: Yes Status: Acute Code(s): MIM2851 - SNOMED Code(s): 268970245 (4) S/P section Current Visit: Yes Status: Acute Code(s): Z98.891 - HISTORY OF UTERINE SCAR FROM PREVIOUS SURGERY SNOMED Code(s): 279896287 Plan: overall doing well postoperatively, will continue routine post operative care.
[2019-05-23] MEDS: SENNOSIDES-DOCUSATE SODIUM 1 EACH TAB PO SCH (20:36)
[2019-05-24] MEDS: HYDROcodone/APAP 5-325MG 1 EACH TAB PO PRN ×4 (00:05→23:25)
[2019-05-24] MEDS: SIMETHICONE 80 MG CHEWABLE PO PRN ×4 (04:14→17:36)
[2019-05-24] MEDS: SENNOSIDES-DOCUSATE SODIUM 1 EACH TAB PO SCH ×2 (08:46→21:04)
[2019-05-24] MEDS: CEPHALEXIN 500 MG CAP PO SCH ×3 (08:46→21:03)
[2019-05-24] MEDS: ETODOLAC 400 MG TAB PO SCH ×2 (08:46→21:03)
--- NOTE | 2019-05-24 11:39 | P.PNOBGPC ---
Subjective - Subjective Patient reports: Reports appetite normal, Reports voiding normally, Reports pain well controlled, Reports ambulating normally : doing well (Requiring use of a bilirubin blanket.) Objective - Vital Signs Latest vital signs: Vital Signs Temp Pulse Resp BP Pulse Ox 05/24/19 09:00 98.2 F 60 16 109/50 98 05/23/19 23:34 98.4 F 93 18 105/58 95 05/23/19 16:00 98.1 F 95 16 143/98 05/23/19 12:00 98.1 F 80 18 112/79 - Exam Extremities: Present: normal Abdomen: Present: normal appearance, soft. Absent: distention, tenderness Incision: Present: normal, dry, intact Uterus: Present: normal, firm (The uterine fundus is tonic and nontender around the umbilicus.) Assessment and Plan (1) S/P section Current Visit: Yes Status: Acute Code(s): Z98.891 - HISTORY OF UTERINE SCAR FROM PREVIOUS SURGERY SNOMED Code(s): 815672857 Plan: Continue routine postoperative and care. As the continues to require treatment for elevated bilirubin, the patient will remain in the hospital until the is released or 4 days postoperatively, whichever comes first. I have encouraged her to continue to ambulate in the hallways.
[2019-05-25] MEDS: SIMETHICONE 80 MG CHEWABLE PO PRN (01:20)
[2019-05-25] MEDS: HYDROcodone/APAP 5-325MG 1 EACH TAB PO PRN ×2 (06:32→13:53)
[2019-05-25] MEDS: SENNOSIDES-DOCUSATE SODIUM 1 EACH TAB PO SCH (09:10)
[2019-05-25] MEDS: ETODOLAC 400 MG TAB PO SCH (09:10)
[2019-05-25] MEDS: CEPHALEXIN 500 MG CAP PO SCH (09:11)
--- NOTE | 2019-05-25 11:55 | P.DS ---
Providers Date of admission: 05/22/19 03:32 Expected date of discharge: 05/25/19 Attending physician: Asha Santiago Primary care physician: Asha Santiago - Discharge Diagnosis(es) (1) S/P section Current Visit: Yes Status: Acute Hospital Course: The patient is a 33-year-old 1 para 0 admitted at 36-6/7 weeks by good dating parameters. She is admitted with documented spontaneous rupture of membranes for clear fluid with the fetus in breech presentation. Her was complicated by a sacral abscess as well as gestational diabetes. testing has been reassuring. On labor and delivery, she was taken the operating room where she was delivered of a viable 8 lbs. 0 oz. baby boy with Apgars of 8 at 1 minute and 8 at 5 minutes. Her course was unremarkable with vital signs draining stable and her temperature was afebrile throughout. She was deemed stable for discharge on postoperative day #3 having remained in the hospital as the required treatment for hyperbilirubinemia. She was discharged home to follow-up in the office in 2 weeks for an incision check and 6 weeks routinely. Discharge instructions included calling for any significantly increased bleeding or foul-smelling lochia, significantly increased fever abdominal pain, perineal complaints, breast complaints, incisional complaints, or anything else that concerned her. She was additionally instructed to have nothing in the vagina for at least 6 weeks time to include intercourse and to abstain from any heavy lifting over the same period of time. She was last instructed to do no driving until off of all pain medications or 2 weeks' time, whichever came first. Discharge medications included any normal home medications as well as a prescription for [place] 5/325 mg, 1-2 by mouth every 6 hours when necessary pain, #20 dispensed with no refills. Maternal blood type is B+ and rubella status is immune. Discharge hemoglobin and hematocrit were 11.3 and 33.6 respectively. Procedures: #1. Primary low-transverse section Patient Condition at Discharge: Stable Plan - Discharge Summary New Discharge Prescriptions: No Action Acetaminophen [Tylenol] 2 tab PO Q4H Pnv No.95/Ferrous Fum/Folic AC [ Multivitamin Tablet] 1 each PO DAILY glyBURIDE [Diabeta] 1 tab PO DAILY Cephalexin [Keflex] 1 tab PO BID Discharge Medication List Acetaminophen [Tylenol] 2 tab PO Q4H 04/22/19 [History] Pnv No.95/Ferrous Fum/Folic AC [ Multivitamin Tablet] 1 each PO DAILY 01/20/19 [History] Cephalexin [Keflex] 1 tab PO BID 05/22/19 [History] glyBURIDE [Diabeta] 1 tab PO DAILY 05/22/19 [History] Follow up Appointment(s)/Referral(s): Asha Santiago DO [Primary Care Provider] - 2 Weeks Discharge Disposition: HOME SELF-CARE
[2019-05-25 15:33] VITALS: BP 139/82; PULSE 68; RESP 17; TEMP 97.9
== END 2019-05-25 17:00 | disposition home or self-care (01) | DRG 787 ==
LOC: FBPOP 03:01 → 4FBP 03:32
PROVIDERS: ADMIT Obstetrics & Gynecology; ATTEND Obstetrics & Gynecology Obstetrics
PROC: 10D00Z1 Extraction of Products of Conception, Low, Open Approach (ICD-10-PCS; principal; 2019-05-22 05:59)
DX: O32.1XX0 Maternal care for breech presentation, not applicable or unspecified (principal); L02.212 Cutaneous abscess of back [any part, except buttock and flank]; O24.425 Gestational diabetes mellitus in childbirth, controlled by oral hypoglycemic drugs; Z37.0 Single live birth; Z3A.36 36 weeks gestation of pregnancy; Z79.2 Long term (current) use of antibiotics; Z83.3 Family history of diabetes mellitus; Z87.891 Personal history of nicotine dependence; O99.284 Endocrine, nutritional and metabolic diseases complicating childbirth; Z82.49 Family history of ischemic heart disease and other diseases of the circulatory system; Z87.442 Personal history of urinary calculi; O75.89 Other specified complications of labor and delivery
CPT/HCPCS: 59025; 83036; 84112; 85025; 86850; 86900; 86901; 88307; 99213

== ENCOUNTER 2019-07-22 12:27 | Emergency (ER) | payer OTHER ==
[2019-07-22] MEDS ORDERED: LIDOCAINE 1% INJ 10MG/ML (20 ML MDV) SQ ONE (13:50)
[2019-07-22] MEDS ORDERED: CEPHALEXIN 500MG STARTER PACK 4 CAP BTL PO STA (14:10)
--- NOTE | 2019-07-22 14:13 | ED ---
Skin/Abscess/FB HPI - General Chief complaint: Skin/Abscess/Foreign Body Stated complaint: Abscess on tailbone Time Seen by Provider: 07/22/19 13:28 Source: patient, RN notes reviewed, old records reviewed Mode of arrival: ambulatory Limitations: no limitations - History of Present Illness Initial comments: This is a 33-year-old female presents today with an abscess over her tailbone. She reports she's had a history of pilonidal abscesses off and on for the past years. Patient states that she is scheduled to follow-up with Dr. Ferrara to have the area surgically removed. Patient has had no fevers or chills or any other significant complaints at this time. She's not been on any antibiotics recently. She did just deliver a child approximately 8 weeks ago. - Related Data Home Medications Medication Instructions Recorded Confirmed Acetaminophen [Tylenol] 2 tab PO Q4H 01/20/19 05/22/19 Pnv No.95/Ferrous Fum/Folic AC 1 each PO DAILY 01/20/19 05/22/19 [ Multivitamin Tablet] Cephalexin [Keflex] 1 tab PO BID 05/22/19 05/22/19 glyBURIDE [Diabeta] 1 tab PO DAILY 05/22/19 05/22/19 Previous Rx's Medication Instructions Recorded Cephalexin [Keflex] 500 mg PO Q8HR #21 cap 07/22/19 Allergies Allergy/AdvReac Type Severity Reaction Status Date / Time No Known Allergies Allergy Verified 07/22/19 12:50 Review of Systems ROS Statement: Those systems with pertinent positive or pertinent negative responses have been documented in the HPI. ROS Other: All systems not noted in ROS Statement are negative. Past Medical History Past Medical History: Hyperlipidemia Additional Past Medical History / Comment(s): concussionx2, kidney infection in 6th grade. UTI's, here in January with cellulitis on back and leg and abcess just below tailbone. hx kidney stones 03/19 History of Any Multi-Drug Resistant Organisms: None Reported Past Surgical History: No Surgical Hx Reported Past Anesthesia/Blood Transfusion Reactions: No Reported Reaction Past Psychological History: No Psychological Hx Reported Smoking Status: Never smoker Past Alcohol Use History: Occasional Past Drug Use History: None Reported - Past Family History Father Family Medical History: Coronary Artery Disease (CAD), Diabetes Mellitus, Hyperlipidemia Additional Family Medical History / Comment(s): DM Type 2 Mother Family Medical History: Thyroid Disorder General Exam - General Exam Comments Initial Comments: 33-year-old female. Alert and oriented 3. Patient appears in no significant distress. General: Well appearing, well nourished, in no distress. Oriented x 3, normal mood and affect . Ambulating without difficulty. Skin: Good turgor, no rash, unusual bruising or prominent lesions Hair: Normal texture and distribution. HEENT: Head: Normocephalic, atraumatic, no visible or palpable masses, depressions, or scaring. Neck: Supple, without lesions, bruits, or adenopathy, thyroid non-enlarged and non-tender Heart: No cardiomegaly or thrills; regular rate and rhythm, no murmur or gallop Lungs: Clear to auscultation and percussion Abdomen: Bowel sounds normal, no tenderness, organomegaly, masses, or hernia Back: Spine normal without deformity or tenderness, Patient has a fluctuant abscess over the lower tailbone and sacrum over towards the left hand side. The surrounding erythema or fluctuance noted. Abscess measures approximately 3 cm. Extremities: No amputations or deformities, cyanosis, edema or varicosities, peripheral pulses intact Musculoskeletal: Normal gait and station. No misalignment, asymmetry, crepitation, defects, tenderness, masses, effusions, decreased range of motion, instability, atrophy or abnormal strength or tone in the head, neck, spine, ribs, pelvis or extremities. Neurologic: CN 2-12 normal. Sensation to pain, touch, and proprioception normal. DTRs normal in upper and lower extremities. No pathologic reflexes. Psychiatric: Oriented X3, intact recent and remote memory, judgment and insight, normal mood and affect. Limitations: no limitations Course Vital Signs 07/22/19 07/22/19 12:48 15:07 Temperature 99.6 F 98.9 F Pulse Rate 106 H 99 Respiratory 20 16 Rate Blood Pressure 119/75 128/76 O2 Sat by Pulse 99 98 Oximetry Procedures - Incision & Drainage Indication: Pilionidal abscess. Size (cm): 3 Anesthetic Used: lidocaine 1% Amount (mLs): 5 Sterile Field Used?: Yes Scalpel Used: #11 I&D Drainage Obtained: Pus, Blood Packing: Iodoform Culture Obtained?: Yes Patient Tolerated Procedure: well, no complications Medical Decision Making - Medical Decision Making 31-year-old female presents today for evaluation for pilonidal abscess. Patient had incision and drainage approximately 5 mL of Prelone fluid was removed. Culture obtained. The area was packed. Discussed Patient is to follow-up with her surgeon. She states she has an appointment in the coming weeks with Dr. Ferrara. Patient tolerated the procedure well. She has breast-feeding at this time, therefore he chose Keflex as antibiotic. Discussed return parameters. Disposition Clinical Impression: Pilonidal abscess Disposition: HOME SELF-CARE Condition: Good Instructions (If sedation given, give patient instructions): Abscess (ED) Additional Instructions: Please use medication as discussed. Please follow up with family doctor if symptoms have not improved over the next two days. Please return to the emergency room if your symptoms increase or worsen or for any other concerns. Prescriptions: Cephalexin [Keflex] 500 mg PO Q8HR #21 cap Is patient prescribed a controlled substance at d/c from ED?: No Referrals: None,Stated [Primary Care Provider] - 1-2 days Hermilo Welch MD [STAFF PHYSICIAN] - 1-2 days Radha Cervantes MD [STAFF PHYSICIAN] - 1-2 days Time of Disposition: 14:13
[2019-07-22] MEDS ORDERED: ACET/COD 300 MG/30 MG STARTER PACK 6 TAB BTL PO STA (14:39)
[2019-07-22 15:08] VITALS: BP 128/76; PULSE 99; RESP 16; TEMP 98.9
== END 2019-07-22 15:07 | disposition home or self-care (01) ==
LOC: EC 12:27
DX: L05.01 Pilonidal cyst with abscess (principal); Z87.440 Personal history of urinary (tract) infections
CPT/HCPCS: 99283; 10080; 87070; 87205; J2001

== ENCOUNTER 2019-11-05 05:03 | Emergency (ER) | payer OTHER ==
[2019-11-05 05:11] VITALS: BP 128/86; PULSE 82; RESP 17; TEMP 98
[2019-11-05] MEDS ORDERED: LIDOCAINE 1% INJ 10MG/ML (20 ML MDV) SQ ONE (05:58)
--- NOTE | 2019-11-05 06:28 | ED ---
Skin/Abscess/FB HPI - General Chief complaint: Skin/Abscess/Foreign Body Stated complaint: Poss Cellulitis Time Seen by Provider: 11/05/19 05:29 Source: patient Mode of arrival: ambulatory Limitations: no limitations - History of Present Illness MD complaint: abscess/boil Onset/Timin -: hour(s) Tetanus Up to Date: yes Location: buttocks Severity: moderate Quality: dull Consistency: constant Improves with: none Worsens with: none Context: none Associated symptoms: denies other symptoms Treatments Prior to Arrival: none - Related Data Home Medications Medication Instructions Recorded Confirmed Acetaminophen [Tylenol] 2 tab PO Q4H 01/20/19 05/22/19 Pnv No.95/Ferrous Fum/Folic AC 1 each PO DAILY 01/20/19 05/22/19 [ Multivitamin Tablet] Cephalexin [Keflex] 1 tab PO BID 05/22/19 05/22/19 glyBURIDE [Diabeta] 1 tab PO DAILY 05/22/19 05/22/19 Previous Rx's Medication Instructions Recorded Cephalexin [Keflex] 500 mg PO Q8HR #21 cap 07/22/19 Sulfamethox-Tmp 800-160Mg [Bactrim 1 each PO Q12HR #14 tab 11/05/19 Ds] Allergies Allergy/AdvReac Type Severity Reaction Status Date / Time No Known Allergies Allergy Verified 11/05/19 05:11 Review of Systems ROS Statement: Those systems with pertinent positive or pertinent negative responses have been documented in the HPI. ROS Other: All systems not noted in ROS Statement are negative. Constitutional: Denies: fever, chills Respiratory: Denies: cough, dyspnea Cardiovascular: Denies: chest pain, palpitations, edema Gastrointestinal: Denies: abdominal pain, nausea, vomiting Genitourinary: Denies: dysuria, hematuria Musculoskeletal: Denies: back pain Skin: Reports: as per HPI, lesions Past Medical History Past Medical History: Hyperlipidemia Additional Past Medical History / Comment(s): concussionx2, kidney infection in 6th grade. UTI's, here in January with cellulitis on back and leg and abcess just below tailbone. hx kidney stones 03/19, History of Any Multi-Drug Resistant Organisms: None Reported Past Surgical History: No Surgical Hx Reported Past Anesthesia/Blood Transfusion Reactions: No Reported Reaction Past Psychological History: No Psychological Hx Reported Smoking Status: Never smoker Past Alcohol Use History: Rare Past Drug Use History: None Reported - Past Family History Father Family Medical History: Coronary Artery Disease (CAD), Diabetes Mellitus, Hyperlipidemia Additional Family Medical History / Comment(s): DM Type 2 Mother Family Medical History: Thyroid Disorder General Exam Limitations: no limitations General appearance: alert, in no apparent distress Respiratory exam: Present: normal lung sounds bilaterally. Absent: respiratory distress, wheezes, rales, rhonchi, stridor Cardiovascular Exam: Present: regular rate, normal rhythm, normal heart sounds. Absent: systolic murmur, diastolic murmur, rubs, gallop GI/Abdominal exam: Present: soft. Absent: distended, tenderness, guarding, rebound, rigid, mass Extremities exam: Present: normal inspection, normal capillary refill. Absent: pedal edema, calf tenderness Skin exam: Present: warm, dry, intact, normal color, other (Patient has approximately 2-3 cm abscess to left buttock just to the left of the gluteal cleft. It is coming to a point.) Course Vital Signs 11/05/19 05:07 Temperature 98 F Pulse Rate 82 Respiratory 17 Rate Blood Pressure 128/86 O2 Sat by Pulse 97 Oximetry Procedures - Incision & Drainage Consent Obtained: verbal consent Site: buttock Anesthetic Used: lidocaine 1% I&D Cleaning Method: Alcohol Wipe Scalpel Used: #11 Irrigation Performed?: Yes I&D Drainage Obtained: Pus, Blood Packing: Iodoform Complications: pain Patient Tolerated Procedure: well Disposition Clinical Impression: Abscess, gluteal cleft Disposition: HOME SELF-CARE Condition: Good Instructions (If sedation given, give patient instructions): Abscess Incision and Drainage (ED) Prescriptions: Sulfamethox-Tmp 800-160Mg [Bactrim Ds] 1 each PO Q12HR #14 tab Is patient prescribed a controlled substance at d/c from ED?: No Referrals: None,Stated [Primary Care Provider] - 1-2 days
== END 2019-11-05 06:52 | disposition home or self-care (01) ==
LOC: EC 05:03
DX: L02.31 Cutaneous abscess of buttock (principal)
CPT/HCPCS: 10060; 99282

== ENCOUNTER 2021-01-03 12:32 | Observation (INO) | payer OTHER ==
[2021-01-03] MEDS ORDERED: ACETAMINOPHEN IV (For NPO) 1,000 MG in EMPTY BAG 1 BAG IVPB ONE (13:00)
[2021-01-03] MEDS ORDERED: LACTATED RINGERS 1,000 ML IV ONE (13:00)
[2021-01-03] MEDS ORDERED: FLUCONAZOLE 150 MG TAB PO ONE (13:01)
[2021-01-03] MEDS ORDERED: FLUCONAZOLE 100 MG TAB PO ONE (13:01)
[2021-01-03 13:24] VITALS: RESP 16
[2021-01-03 14:45] LABS: Appearance,Urine Clear (Clear); Bilirubin,Urine Negative (Negative); Blood,Urine Small (Negative); Color,Urine Yellow; Glucose,Urine (UA) 4+ (Negative); Leukocyte Esterase,Urine Trace (Negative); Mucus,Urine Rare /hpf; Nitrite,Urine Negative (Negative); Protein,Urine Negative (Negative); RBC,Urine 2 /hpf (0-5); Specific Gravity,Urine 1.022 (1.001-1.035); Squamous Epithelial Cell,Urine <1 /hpf (0-4); Urobilinogen,Urine <2.0 mg/dL (<2.0); WBC,Urine 1 /hpf (0-5)
[2021-01-03 14:55] LABS: Ketones,Urine 2+ (Negative)
[2021-01-03 15:37] LABS: Glucose,Whole Blood 211 mg/dL (75-99)
[2021-01-03] MEDS ORDERED: ONDANSETRON 4 MG/2 ML VIAL IVP PRN (16:48)
--- NOTE | 2021-01-03 17:48 | P.HPOB ---
History of Present Illness H&P Date: 01/03/21 Chief Complaint: IUP @ 32 2/7 This is a 35-year-old at 32-2/7 weeks that presents to labor and delivery with complaints of abdominal pain. Patient states the pain started this morning, worsens with movement and states it is worse when she is working. 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 She denies any pattern to the pain. She does appreciated that the pain wraps around her abdomen. She denies dysuria. She denies constipation. She denies fevers, chills, nausea, vomiting Patient was recently diagnosed with gestational diabetes and has been checking her sugars at home, she states they've been in the 200s. Patient was known gestational diabetic with her prior . She denies any vaginal bleeding or loss of fluid. She does note good movement. She has been receiving routine care and has done well up to this point. Patient had a prior with her last delivery secondary to breech presentation at 36 weeks. Review of Systems Constitutional: Reports fatigue, Denies chills, Denies fever Ears, nose, mouth and throat: Denies headache Cardiovascular: Reports leg edema Respiratory: Denies dyspnea Gastrointestinal: Denies constipation, Denies diarrhea, Denies nausea, Denies vomiting Genitourinary: Denies Past Medical History Past Medical History: Hyperlipidemia Additional Past Medical History / Comment(s): concussionx2, kidney infection in 6th grade. UTI's, here in January with cellulitis on back and leg and abcess just below tailbone. hx kidney stones 03/19, History of Any Multi-Drug Resistant Organisms: None Reported Past Surgical History: No Surgical Hx Reported, Section Past Anesthesia/Blood Transfusion Reactions: No Reported Reaction Smoking Status: Never smoker - Past Family History Father Family Medical History: Coronary Artery Disease (CAD), Diabetes Mellitus, Hyperlipidemia Additional Family Medical History / Comment(s): DM Type 2 Mother Family Medical History: Thyroid Disorder Medications and Allergies Home Medications Medication Instructions Recorded Confirmed Type Acetaminophen [Tylenol] 2 tab PO Q4H PRN 01/20/19 01/03/21 History Pnv No.95/Ferrous Fum/Folic AC 1 each PO DAILY 01/20/19 01/03/21 History [ Multivitamin Tablet] Aspirin [Children's Aspirin] 81 mg PO DAILY 01/03/21 01/03/21 History Allergies Allergy/AdvReac Type Severity Reaction Status Date / Time No Known Allergies Allergy Verified 01/03/21 12:57 Exam Osteopathic Statement: *. No significant issues noted on an osteopathic stru ctural exam other than those noted in the History and Physical/Consult. Vital Signs Temp Pulse Resp BP Pulse Ox 01/03/21 16:00 98.0 F 100 16 115/78 01/03/21 13:21 98.2 F 96 16 116/86 97 Intake and Output 01/03/21 01/03/21 01/03/21 06:59 14:59 22:59 Other: Weight 99.79 kg Targeted physical exam is performed in this date in general this a well- nourished well-developed female in no acute distress, patient is not noted to be breathing through contractions but has her hand on her abdomen. Patient appears comfortable when we are speaking. Breathing is nonlabored, heart has a regular rate and rhythm, abdomen is gravid, on cervical exam she is closed posterior 50% -2 station. heart tones are noted to be reassuring for gestational age, an occasional contraction is appreciated. Her abdomen is soft. Results Abnormal Lab Results - Last 24 Hours (Table) 01/03/21 01/03/21 Range/Units 14:25 15:36 POC Glucose (mg/dL) 211 H (75-99) mg/dL Urine Glucose (UA) 4+ H (Negative) Urine Ketones 2+ H (Negative) Urine Blood Small H (Negative) Ur Leukocyte Esterase Trace H (Negative) Urine Mucus Rare H (None) /hpf Assessment and Plan (1) 32 weeks gestation of Narrative/Plan: Reassuring NST Current Visit: Yes Status: Acute Code(s): Z3A.32 - 32 WEEKS GESTATION OF SNOMED Code(s): 8662689 (2) Abdominal pain affecting Narrative/Plan: Does not appear contractions, cervical length 2.9 on transvaginal ultrasound. Current Visit: Yes Status: Acute Code(s): O26.899 - OTH RELATED CONDITIONS, UNSPECIFIED TRIMESTER; R10.9 - UNSPECIFIED ABDOMINAL PAIN SNOMED Code(s): 878938994 (3) GDM (gestational diabetes mellitus) Current Visit: Yes Status: Acute Code(s): O24.419 - GESTATIONAL DIABETES MELLITUS IN , UNSP CONTROL SNOMED Code(s): 43862214 (4) Uncontrolled blood glucose Narrative/Plan: Sliding-scale insulin Current Visit: Yes Status: Acute Code(s): R73.09 - OTHER ABNORMAL GLUCOSE SNOMED Code(s): 72486792 Plan: This 35-year-old at 32 and 2/7 weeks presented to labor and delivery with complaints of abdominal pain. Patient stated abdominal pain started earlier this morning. She does feel like it comes and goes and wraps around her abdomen. Patient denies vaginal bleeding or loss of fluid. Patient does have a history of a 35 week delivery, transvaginal cervical length was 2.9 cm. Patient is admitted to labor and delivery for glucose management, sliding scale insulin is ordered. Will start Procardia, continue IV fluids, continuous monitoring overnight. Discussed plan with patient and questions are answered. We'll monitor closely and consider transfer to tertiary care center if cervical changes appreciated.
[2021-01-03 17:51] LABS: Glucose,Whole Blood 176 mg/dL (75-99)
[2021-01-03] MEDS: NIFEdipine 10 MG CAP PO PRN ×3 (17:52→18:42)
[2021-01-03] MEDS: LACTATED RINGERS 1,000 ML IV SCH (17:53)
[2021-01-03] MEDS: INSULIN ASPART (NovoLOG) 100 UNIT/ML VIAL SQ SCH ×3 (18:26→22:53)
[2021-01-03 19:41] LABS: Glucose,Whole Blood 255 mg/dL (75-99)
--- NOTE | 2021-01-03 19:54 | US ---
EXAMINATION TYPE: US OB >= 14 wk fetus DATE OF EXAM: 01/03/2021 COMPARISON: None CLINICAL HISTORY: abdominal pain TECHNIQUE: Transabdominal (TA) GESTATIONAL AGE / DATING Physician Established: (32 weeks/2 days) EDC: 02-26-21 Dates by Current Scan:(36 weeks/1 days) EDC: 01-30-21 SURVEY IUP: Single PLACENTA: Anterior, fundal PREVIA: No Previa MACK: 22.0 cm CERVICAL LENGTH (transabdominal: norm > 3.0cm): 2.9 cm CERVICAL LENGTH (transvaginal: norm> 2.5cm): 2.9 cm (Supplemental transvaginal imaging performed to verify cervical length.) BIOMETRY PRESENTATION: Vertex BPD: 8.5 cm 34 weeks / 1 days (head very low, difficult to accurately measure HC: 31.1 cm 34 weeks / 6 days AC: 36.8 cm 40 weeks / 5 days FL: 6.7 cm 34 weeks / 4 days ESTIMATED WEIGHT IN GRAMS: 487 grams ESTIMATED WEIGHT IN LBS/OZ: 7 lbs. 5 oz. WEIGHT PERCENTAGE BASED ON ESTABLISHED DATES: 98% HC/AC: 0.85low FL/AC: 18% low HEART RATE: 133 bpm RHYTHM: Normal IMPRESSION: Single live intrauterine with estimated gestational age of 36 weeks 1 day. Sonographic age is more advanced than provided physician established age of 32 weeks and 2 days. Nonspecific discordant AC measurement of unknown clinical significance. Recommend clinical and imagin g follow-up as indicated. Otherwise no acute abnormality.
[2021-01-03 21:25] LABS: Basophils % (A) 0 %; Eosinophils # (A) 0.1 k/uL (0-0.7); Eosinophils % (A) 1 %; HCT 35.8 % (34.0-46.0); HGB 12.7 gm/dL (11.4-16.0); Lymphocytes # (A) 1.4 k/uL (1.0-4.8); Lymphocytes % (A) 15 %; MCH 30.6 pg (25.0-35.0); MCHC 35.4 g/dL (31.0-37.0); MCV 86.5 fL (80.0-100.0); Mean Platelet Volume 9.4; Monocytes # (A) 0.4 k/uL (0-1.0); Monocytes % (A) 4 %; Neutrophils # (A) 7.1 k/uL (1.3-7.7); Neutrophils % (A) 78 %; Platelet Count 199 k/uL (150-450); RBC 4.14 m/uL (3.80-5.40); WBC 9.1 k/uL (3.8-10.6)
[2021-01-03 21:31] LABS: Potassium 3.8 mmol/L (3.5-5.1)
[2021-01-03 21:32] LABS: ALT 20 U/L (4-34); AST 29 U/L (14-36); African American GFR (CKD) >90 (>60 ml/min/1.73 sqM); Albumin 3.3 g/dL (3.5-5.0); Alkaline Phosphatase 131 U/L (38-126); Anion Gap 8 mmol/L; Blood Urea Nitrogen 7 mg/dL (7-17); Calcium 9.2 mg/dL (8.4-10.2); Carbon Dioxide 19 mmol/L (22-30); Chloride 103 mmol/L (98-107); Glucose 217 mg/dL (74-99); Non-African American GFR(CKD) >90 (>60 ml/min/1.73 sqM); Sodium 130 mmol/L (137-145); Total Bilirubin 0.4 mg/dL (0.2-1.3)
[2021-01-03 22:44] LABS: Glucose,Whole Blood 188 mg/dL (75-99)
[2021-01-03] MEDS: ACETAMINOPHEN TAB 500 MG TAB PO PRN (22:57)
[2021-01-03] MEDS: CALCIUM CARBONATE 500 MG CHEWABLE PO PRN (23:27)
[2021-01-04] MEDS: LACTATED RINGERS 1,000 ML IV SCH ×3 (02:19→19:10)
[2021-01-04 02:27] LABS: Glucose,Whole Blood 162 mg/dL (75-99)
[2021-01-04] MEDS: INSULIN ASPART (NovoLOG) 100 UNIT/ML VIAL SQ SCH ×4 (02:52→20:23)
[2021-01-04] MEDS: CALCIUM CARBONATE 500 MG CHEWABLE PO PRN ×3 (03:03→23:57)
[2021-01-04 08:27] LABS: Glucose,Whole Blood 185 mg/dL (75-99)
[2021-01-04] MEDS ORDERED: INSULIN NPH 300 UNIT/3 ML VIAL SQ SCH (08:45)
[2021-01-04] MEDS ORDERED: INSULIN REGULAR 100 UNIT/ML VIAL SQ ONE ×2 (08:45→17:46)
--- NOTE | 2021-01-04 08:51 | P.PN ---
Subjective Progress Note Date: 01/04/21 Principal diagnosis: IUP at 32-3/7 weeks, gestational diabetes with uncontrolled blood sugars Patient did receive 11 units of insulin overnight, this morning she states she is feeling well. Fasting blood sugar was 180s. Abdominal pain that she initially presented with has resolved. Patient said she did sleep last night. NST was reactive this morning. Objective - Vital Signs Vital signs: Vital Signs Temp 97.1 F L 01/04/21 08:00 Pulse 87 01/04/21 08:00 Resp 16 01/04/21 08:00 BP 125/95 01/04/21 08:00 Pulse Ox 97 01/04/21 08:00 Intake & Output 01/03/21 01/04/21 01/04/21 18:59 06:59 18:59 Weight 99.79 kg Other: # Voids 3 - Constitutional General appearance: Present: cooperative - Gastrointestinal Gastrointestinal Comment(s): Gravid - Psychiatric Psychiatric: Present: appropriate affect - Labs CBC & Chem 7: 01/03/21 21:04 01/03/21 21:04 Labs: Abnormal Lab Results - Last 24 Hours (Table) 01/03/21 01/03/21 01/03/21 Range/Units 14:25 15:36 17:50 Sodium (137-145) mmol/L Carbon Dioxide (22-30) mmol/L Creatinine (0.52-1.04) mg/dL Glucose (74-99) mg/dL POC Glucose (mg/dL) 211 H 176 H (75-99) mg/dL Alkaline Phosphatase (38-126) U/L Total Protein (6.3-8.2) g/dL Albumin (3.5-5.0) g/dL Urine Glucose (UA) 4+ H (Negative) Urine Ketones 2+ H (Negative) Urine Blood Small H (Negative) Ur Leukocyte Esterase Trace H (Negative) Urine Mucus Rare H (None) /hpf 01/03/21 01/03/21 01/03/21 Range/Units 19:40 21:04 22:39 Sodium 130 L (137-145) mmol/L Carbon Dioxide 19 L (22-30) mmol/L Creatinine 0.46 L (0.52-1.04) mg/dL Glucose 217 H (74-99) mg/dL POC Glucose (mg/dL) 255 H 188 H (75-99) mg/dL Alkaline Phosphatase 131 H (38-126) U/L Total Protein 6.0 L (6.3-8.2) g/dL Albumin 3.3 L (3.5-5.0) g/dL Urine Glucose (UA) (Negative) Urine Ketones (Negative) Urine Blood (Negative) Ur Leukocyte Esterase (Negative) Urine Mucus (None) /hpf 01/04/21 01/04/21 Range/Units 02:25 08:26 Sodium (137-145) mmol/L Carbon Dioxide (22-30) mmol/L Creatinine (0.52-1.04) mg/dL Glucose (74-99) mg/dL POC Glucose (mg/dL) 162 H 185 H (75-99) mg/dL Alkaline Phosphatase (38-126) U/L Total Protein (6.3-8.2) g/dL Albumin (3.5-5.0) g/dL Urine Glucose (UA) (Negative) Urine Ketones (Negative) Urine Blood (Negative) Ur Leukocyte Esterase (Negative) Urine Mucus (None) /hpf Assessment and Plan (1) 32 weeks gestation of Current Visit: Yes Status: Acute Code(s): Z3A.32 - 32 WEEKS GESTATION OF SNOMED Code(s): 7766954 (2) Abdominal pain affecting Current Visit: Yes Status: Acute Code(s): O26.899 - OTH RELATED CONDITIONS, UNSPECIFIED TRIMESTER; R10.9 - UNSPECIFIED ABDOMINAL PAIN SNOMED Code(s): 622307958 (3) GDM (gestational diabetes mellitus) Current Visit: Yes Status: Acute Code(s): O24.419 - GESTATIONAL DIABETES MELLITUS IN , UNSP CONTROL SNOMED Code(s): 56848325 (4) Uncontrolled blood glucose Current Visit: Yes Status: Acute Code(s): R73.09 - OTHER ABNORMAL GLUCOSE SNOMED Code(s): 08341246 Plan: Patient is doing well overall, she has resolution of her abdominal pain that she initially presented with. Patient did receive multiple doses of sliding scale insulin last evening. We will plan to start insulin regimen of 5 of regular 4 of NPH in the morning with breakfast. And in addition 5 of NPH 5 of regular in the evening. Patient will most likely need adjustment to these doses and sliding scale is ordered to cover her elevated postprandial BS if needed in addition. Will decrease monitoring to NST every shift.
[2021-01-04] MEDS: PRENATAL VIT-IRON-FOLIC ACID 1 EACH CAP PO SCH (09:14)
[2021-01-04 10:33] LABS: Glucose,Whole Blood 248 mg/dL (75-99)
[2021-01-04] MEDS: FAMOTIDINE 20 MG/2 ML VIAL IV SCH (11:04)
[2021-01-04 15:26] LABS: Glucose,Whole Blood 321 mg/dL (75-99)
[2021-01-04 16:34] LABS: Hemoglobin A1C 7.8 % (4.0-6.0)
--- NOTE | 2021-01-04 17:04 | P.PN ---
Subjective Progress Note Date: 01/04/21 Principal diagnosis: IUP at 32-3/7 weeks, gestational diabetes with uncontrolled blood sugars Patient did receive 11 units of insulin overnight, this morning she states she is feeling well. Fasting blood sugar was 180. Abdominal pain that she initially presented with has resolved. Patient said she did sleep last night. NST was reactive this morning. Patient continues to have elevated blood sugars despite instituting regular and NPH insulin. Reevaluation this afternoon revealing blood sugar 2 hours after breakfast to 48, 2 hours after lunch 321. Patient received 5 units of regular and 4 units of NPH this morning. Patient has received an additional 14 units of NovoLog per sliding scale. Objective - Vital Signs Vital signs: Vital Signs Temp 96.7 F L 01/04/21 12:00 Pulse 100 01/04/21 12:00 Resp 16 01/04/21 12:00 BP 138/83 01/04/21 12:00 Pulse Ox 98 01/04/21 12:00 Intake & Output 01/03/21 01/04/21 01/04/21 18:59 06:59 18:59 Intake Total 1000 Balance 1000 Weight 99.79 kg Intake: IV 1000 Other: # Voids 3 1 - Labs CBC & Chem 7: 01/03/21 21:04 01/03/21 21:04 Labs: Abnormal Lab Results - Last 24 Hours (Table) 01/03/21 01/03/21 01/03/21 Range/Units 17:50 19:40 21:04 Sodium (137-145) mmol/L Carbon Dioxide (22-30) mmol/L Creatinine (0.52-1.04) mg/dL Glucose (74-99) mg/dL POC Glucose (mg/dL) 176 H 255 H (75-99) mg/dL Hemoglobin A1c 7.8 H (4.0-6.0) % Alkaline Phosphatase (38-126) U/L Total Protein (6.3-8.2) g/dL Albumin (3.5-5.0) g/dL 01/03/21 01/03/21 01/04/21 Range/Units 21:04 22:39 02:25 Sodium 130 L (137-145) mmol/L Carbon Dioxide 19 L (22-30) mmol/L Creatinine 0.46 L (0.52-1.04) mg/dL Glucose 217 H (74-99) mg/dL POC Glucose (mg/dL) 188 H 162 H (75-99) mg/dL Hemoglobin A1c (4.0-6.0) % Alkaline Phosphatase 131 H (38-126) U/L Total Protein 6.0 L (6.3-8.2) g/dL Albumin 3.3 L (3.5-5.0) g/dL 01/04/21 01/04/21 01/04/21 Range/Units 08:26 10:31 15:24 Sodium (137-145) mmol/L Carbon Dioxide (22-30) mmol/L Creatinine (0.52-1.04) mg/dL Glucose (74-99) mg/dL POC Glucose (mg/dL) 185 H 248 H 321 H (75-99) mg/dL Hemoglobin A1c (4.0-6.0) % Alkaline Phosphatase (38-126) U/L Total Protein (6.3-8.2) g/dL Albumin (3.5-5.0) g/dL Assessment and Plan (1) 32 weeks gestation of Current Visit: Yes Status: Acute Code(s): Z3A.32 - 32 WEEKS GESTATION OF SNOMED Code(s): 7278268 (2) Abdominal pain affecting Current Visit: Yes Status: Acute Code(s): O26.899 - OTH RELATED CONDITIONS, UNSPECIFIED TRIMESTER; R10.9 - UNSPECIFIED ABDOMINAL PAIN SNOMED Code(s): 680243364 (3) GDM (gestational diabetes mellitus) Current Visit: Yes Status: Acute Code(s): O24.419 - GESTATIONAL DIABETES MELLITUS IN , UNSP CONTROL SNOMED Code(s): 30139861 (4) Uncontrolled blood glucose Current Visit: Yes Status: Acute Code(s): R73.09 - OTHER ABNORMAL GLUCOSE SNOMED Code(s): 40586153 Plan: Patient is doing well overall, she has resolution of her abdominal pain that she initially presented with. Patient did receive multiple doses of sliding scale insulin last evening. We will plan to start insulin regimen of 5 of regular 4 of NPH in the morning with breakfast. And in addition 5 of NPH 5 of regular in the evening. Patient will most likely need adjustment to these doses and sliding scale is ordered to cover her elevated postprandial BS if needed in addition. Will decrease monitoring to NST every shift. Reevaluation of the patient's blood sugars this afternoon revealed increasing insulin requirements. Consult placed to [facility] [place] physicians for diabetes man agement. Discussion with patient regarding need for continued hospital based care given her significantly elevated blood sugars. I do feel we need to have reasonable control of her blood sugars prior to discharge. She states understanding of plan and reasoning behind consult
[2021-01-04] MEDS ORDERED: INSULIN NPH 300 UNIT/3 ML VIAL SQ ONE (17:46)
[2021-01-04 20:09] LABS: Glucose,Whole Blood 181 mg/dL (75-99)
[2021-01-04] MEDS: ACETAMINOPHEN TAB 500 MG TAB PO PRN (20:22)
--- NOTE | 2021-01-05 01:04 | P.CONS ---
History of Present Illness - Reason for Consult Consult date: 01/04/21 hyperglycemia Requesting physician: Asha Santiago - Chief Complaint hyperglycemia - History of Present Illness 35year old female with history of gestational diabetes patient is 34 week , with a healthy baby at home . she experienced gestational diabetes during her first was managed with Glyburide until delivery . she has no other medical history. 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 she feels comfortable using insulin , however, she prefers pill form if possible. patient claims that she follows low carb diet, however, despite that , her A1C w as 7.8. she denies any abd pain , nausea , vomiting, urinary frequency , urgency, or dysuria, she denies any fever, chills, or URI symptoms . denies any blurry vision. she has been requiring frequent coverage with sliding scale , today she required coverage with about 46 units of short acting insulin , and 24 units in total of intermediate acting insulin Review of Systems Pertinent positives as noted in HPI. All other systems were reviewed and are negative Past Medical History Past Medical History: Hyperlipidemia Additional Past Medical History / Comment(s): concussionx2, kidney infection in 6th grade. UTI's, here in January with cellulitis on back and leg and abcess just below tailbone. hx kidney stones 03/19, History of Any Multi-Drug Resistant Organisms: None Reported Past Surgical History: No Surgical Hx Reported, Section Past Anesthesia/Blood Transfusion Reactions: No Reported Reaction Smoking Status: Never smoker - Past Family History Father Family Medical History: Coronary Artery Disease (CAD), Diabetes Mellitus, H yperlipidemia Additional Family Medical History / Comment(s): DM Type 2 Mother Family Medical History: Thyroid Disorder Medications and Allergies Home Medications Medication Instructions Recorded Confirmed Type Acetaminophen [Tylenol] 2 tab PO Q4H PRN 01/20/19 01/03/21 History Pnv No.95/Ferrous Fum/Folic AC 1 each PO DAILY 01/20/19 01/03/21 History [ Multivitamin Tablet] Aspirin [Children's Aspirin] 81 mg PO DAILY 01/03/21 01/03/21 History Allergies Allergy/AdvReac Type Severity Reaction Status Date / Time No Known Allergies Allergy Verified 01/03/21 12:57 Physical Exam Vitals: Vital Signs Temp Pulse Resp BP Pulse Ox 01/04/21 16:00 97.5 F L 100 16 128/80 98 01/04/21 12:00 96.7 F L 100 16 138/83 98 01/04/21 08:00 97.1 F L 87 16 125/95 97 01/03/21 23:35 99.8 F H 91 16 119/68 Intake and Output 01/04/21 01/04/21 01/04/21 06:59 14:59 22:59 Intake Total 1000 Balance 1000 Intake: IV 1000 Other: # Voids 1 Constitutional: No acute distress, conversant, pleasant Eyes: Anicteric sclerae, moist conjunctiva, Pupils equal round reactive to light ENMT: NC/AT Oropharynx clear, no erythema, or exudates Neck: Supple, FROM, no masses, or JVD No carotid bruits No thyromegaly Lungs: Clear to auscultation Clear to percussion Normal respiratory effort, no accessory muscle use Cardiovascular: Heart regular in rate and rhythm, No murmurs, gallops, or rubs No peripheral edema Abdominal: Soft Nontender, no guarding, rebound or rigidity Abdomen moving with respiration Normoactive bowel sounds palpable uterus above umbilical level Skin: Normal temperature, tone, texture, turgor No induration No subcutaneous nodules No rash, lesions No ulcers Extremities: No digital cyanosis No clubbing Pedal pulses intact and symmetrical Radial pulses intact and symmetrical No calf tenderness Psychiatric: Alert and oriented to person, place and time Appropriate affect fair judgement Neuro Muscles Strength 5/5 in all 4 extremities Sensation to light touch grossly present throughout Cranial nerves II-XII grossly intact No focal sensory deficits Lymphatics: no palpable cervical or supraclavicular , or inguinal lymph nodes Results CBC & Chem 7: 01/03/21 21:04 01/03/21 21:04 Labs: Abnormal Lab Results - Last 24 Hours (Table) 01/03/21 01/03/21 01/03/21 Range/Units 21:04 21:04 22:39 Sodium 130 L (137-145) mmol/L Carbon Dioxide 19 L (22-30) mmol/L Creatinine 0.46 L (0.52-1.04) mg/dL Glucose 217 H (74-99) mg/dL POC Glucose (mg/dL) 188 H (75-99) mg/dL Hemoglobin A1c 7.8 H (4.0-6.0) % Alkaline Phosphatase 131 H (38-126) U/L Total Protein 6.0 L (6.3-8.2) g/dL Albumin 3.3 L (3.5-5.0) g/dL 01/04/21 01/04/21 01/04/21 Range/Units 02:25 08:26 10:31 Sodium (137-145) mmol/L Carbon Dioxide (22-30) mmol/L Creatinine (0.52-1.04) mg/dL Glucose (74-99) mg/dL POC Glucose (mg/dL) 162 H 185 H 248 H (75-99) mg/dL Hemoglobin A1c (4.0-6.0) % Alkaline Phosphatase (38-126) U/L Total Protein (6.3-8.2) g/dL Albumin (3.5-5.0) g/dL 01/04/21 Range/Units 15:24 Sodium (137-145) mmol/L Carbon Dioxide (22-30) mmol/L Creatinine (0.52-1.04) mg/dL Glucose (74-99) mg/dL POC Glucose (mg/dL) 321 H (75-99) mg/dL Hemoglobin A1c (4.0-6.0) % Alkaline Phosphatase (38-126) U/L Total Protein (6.3-8.2) g/dL Albumin (3.5-5.0) g/dL Assessment and Plan Assessment: gestational diabetes Goal fasting blood sugar 60-95 gm/dl Goal 2 hours post prandial <120 gm/dl after midnight blood sugar goal >60 gm/dl (avoid hypoglycemia ) recommendations are dietry control plus insulin based on conservative insulin requirement calculated at 0.5 units per kg per day I would start her on insulin NPH 30 units in the morning , and 20 units sq in the evening plus insulin sliding scale with aspart close monitoring of blood sugar preprandial 3 times a day , one time before bedtime , and one time after midnight if 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 Do not hesitate to contact us with questions. Someone can be reached from the [facility] [place] hospitalist group at all hours of the day at [phone].
[2021-01-05] MEDS: ACETAMINOPHEN TAB 500 MG TAB PO PRN ×2 (02:11→08:12)
[2021-01-05 02:35] LABS: Glucose,Whole Blood 157 mg/dL (75-99)
[2021-01-05] MEDS ORDERED: METOCLOPRAMIDE 10 MG TAB PO STA (02:47)
[2021-01-05] MEDS: LACTATED RINGERS 1,000 ML IV SCH (02:57)
[2021-01-05] MEDS: ASPIRIN 81 MG PO SCH ×2 (02:58→12:47)
[2021-01-05] MEDS ORDERED: INSULIN NPH 300 UNIT/3 ML VIAL SQ SCH ×4 (07:30→21:00)
[2021-01-05 07:31] LABS: Glucose,Whole Blood 153 mg/dL (75-99)
[2021-01-05] MEDS: CALCIUM CARBONATE 500 MG CHEWABLE PO PRN (07:47)
[2021-01-05] MEDS: PRENATAL VIT-IRON-FOLIC ACID 1 EACH CAP PO SCH (07:47)
[2021-01-05] MEDS: INSULIN ASPART (NovoLOG) 100 UNIT/ML VIAL SQ SCH ×3 (08:08→15:43)
--- NOTE | 2021-01-05 08:53 | P.PN ---
Subjective Progress Note Date: 01/05/21 Principal diagnosis: IUP at 32-3/7 weeks, gestational diabetes with uncontrolled blood sugars Patient did receive 11 units of insulin overnight, this morning she states she is feeling well. Fasting blood sugar was 180. Abdominal pain that she initially presented with has resolved. Patient said she did sleep last night. NST was reactive this morning. Patient continues to have elevated blood sugars despite instituting regular and NPH insulin. Reevaluation this afternoon revealing blood sugar 2 hours after breakfast to 48, 2 hours after lunch 321. Patient received 5 units of regular and 4 units of NPH this morning. Patient has received an additional 14 units of NovoLog per sliding scale. 01/05/2021 Patient did well overnight. Patient has noted improved blood sugar control this morning with her fasting of 153. Patient states she is feeling well. She denies any concerns this morning. Sound physicians were consulted yesterday and did adjust insulin requirements. Patient notes good movement. NSTs have been category 1. We'll plan discharge today most likely with close follow-up. Objective - Vital Signs Vital signs: Vital Signs Temp 97.8 F 01/05/21 07:34 Pulse 91 01/05/21 07:34 Resp 16 01/05/21 07:34 BP 128/86 01/05/21 07:34 Pulse Ox 98 01/04/21 16:00 Intake & Output 01/04/21 01/05/21 01/05/21 18:59 06:59 18:59 Intake Total 1000 120 Balance 1000 120 Intake: IV 1000 Oral 120 Other: # Voids 1 2 - Constitutional General appearance: Present: cooperative, no acute distress - Cardiovascular Rhythm: regular - Gastrointestinal Gastrointestinal Comment(s): Gravid - Musculoskeletal Musculoskeletal: Present: gait normal - Psychiatric Psychiatric: Present: A&O x's 3, appropriate affect - Labs CBC & Chem 7: 01/03/21 21:04 01/03/21 21:04 Labs: Abnormal Lab Results - Last 24 Hours (Table) 01/03/21 01/04/21 01/04/21 Range/Units 21:04 10:31 15:24 POC Glucose (mg/dL) 248 H 321 H (75-99) mg/dL Hemoglobin A1c 7.8 H (4.0-6.0) % 01/04/21 01/05/21 01/05/21 Range/Units 20:07 02:33 07:29 POC Glucose (mg/dL) 181 H 157 H 153 H (75-99) mg/dL Hemoglobin A1c (4.0-6.0) % Assessment and Plan (1) 32 weeks gestation of Current Visit: Yes Status: Acute Code(s): Z3A.32 - 32 WEEKS GESTATION OF SNOMED Code(s): 8610847 (2) Abdominal pain affecting Current Visit: Yes Status: Acute Code(s): O26.899 - OTH RELATED CONDITIONS, UNSPECIFIED TRIMESTER; R10.9 - UNSPECIFIED ABDOMINAL PAIN SNOMED Code(s): 204880894 (3) GDM (gestational diabetes mellitus) Current Visit: Yes Status: Acute Code(s): O24.419 - GESTATIONAL DIABETES MELLITUS IN , UNSP CONTROL SNOMED Code(s): 43244460 (4) Uncontrolled blood glucose Current Visit: Yes Status: Acute Code(s): R73.09 - OTHER ABNORMAL GLUCOSE SNOMED Code(s): 25241567 Plan: Patient is doing well overall, she has resolution of her abdominal pain that she initially presented with. Patient did receive multiple doses of sliding scale insulin last evening. We will plan to start insulin regimen of 5 of regular 4 of NPH in the morning with breakfast. And in addition 5 of NPH 5 of regular in the evening. Patient will most likely need adjustment to these doses and sliding scale is ordered to cover her elevated postprandial BS if needed in addition. Will decrease monitoring to NST every shift. Reevaluation of the patient's blood sugars this afternoon revealed increasing i nsulin requirements. Consult placed to SOUND physicians for diabetes management. Discussion with patient regarding need for continued hospital based care given her significantly elevated blood sugars. I do feel we need to have reasonable control of her blood sugars prior to discharge. She states understanding of plan and reasoning behind consult 01/05/2021 Patient is doing well. Patient has improved blood sugar control and should be ready for discharge later this afternoon. Patient will continue to follow recommendations from sound physicians, in addition to sliding scale requirements. I will plan close follow-up with endocrine for continued diabetes management. Patient states understanding of the plan and is comfortable giving herself insulin and following blood sugar protocol.
[2021-01-05] MEDS: FAMOTIDINE 20 MG/2 ML VIAL IV SCH (09:50)
[2021-01-05 12:02] VITALS: BP 131/74; PULSE 90; TEMP 98.4
[2021-01-05 12:53] LABS: Glucose,Whole Blood 172 mg/dL (75-99)
--- NOTE | 2021-01-05 13:12 | P.PN ---
Subjective Progress Note Date: 01/05/21 No new complaints today. Objective - Vital Signs Vital signs: Vital Signs Temp 98.4 F 01/05/21 12:01 Pulse 90 01/05/21 12:01 Resp 16 01/05/21 12:01 BP 131/74 01/05/21 12:01 Pulse Ox 98 01/04/21 16:00 Intake & Output 01/04/21 01/05/21 01/05/21 18:59 06:59 18:59 Intake Total 1000 120 Balance 1000 120 Intake: IV 1000 Oral 120 Other: # Voids 1 2 - Exam Gen: awake, alert, gravid woman HEENT: normocephalic, atraumatic, good hearing acuity, moist mucous membranes Resp: good air exchange, breathing comfortably with no accessory muscle use CVS: good distal perfusion x 4, GI: soft, NTTP, ND : no SPT, no CVAT, weinstein catheter not present MSK: no pitting edema, no clubbing Neuro: non-focal, moving all extremities Psych: cooperative, euthymic mood - Labs CBC & Chem 7: 01/03/21 21:04 01/03/21 21:04 Labs: Abnormal Lab Results - Last 24 Hours (Table) 01/03/21 01/04/21 01/04/21 Range/Units 21:04 15:24 20:07 POC Glucose (mg/dL) 321 H 181 H (75-99) mg/dL Hemoglobin A1c 7.8 H (4.0-6.0) % 01/05/21 01/05/21 01/05/21 Range/Units 02:33 07:29 12:51 POC Glucose (mg/dL) 157 H 153 H 172 H (75-99) mg/dL Hemoglobin A1c (4.0-6.0) % Assessment and Plan Assessment: gestational diabetes Goal fasting blood sugar 60-95 gm/dl Goal 2 hours post prandial <120 gm/dl after midnight blood sugar goal >60 gm/dl (avoid hypoglycemia ) recommendations are dietry control plus insulin based on conservative insulin requirement calculated at 0.5 units per kg per day I would start her on insulin NPH 30 units in the morning , and 20 units sq in the evening plus insulin sliding scale with aspart close monitoring of blood sugar preprandial 3 times a day , one time before bedtime , and one time after midnight if 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 Do not hesitate to contact us with questions. Someone can be reached from the [facility] hospitalist group at all hours of the day at [phone].
[2021-01-05 15:21] LABS: Glucose,Whole Blood 212 mg/dL (75-99)
--- NOTE | 2021-01-05 15:48 | P.DS ---
Providers Date of admission: 01/03/21 17:38 Expected date of discharge: 01/05/21 Attending physician: Asha Santiago Consults: 01/04/21 16:57 Consult Physician Stat Consulting Provider: Vidya Vargas Consult Reason/Comments: Diabetes Management Do you want consulting provider notified?: Yes Primary care physician: Stated None - Discharge Diagnosis(es) (1) 32 weeks gestation of Current Visit: Yes Status: Acute (2) Abdominal pain affecting Current Visit: Yes Status: Acute (3) GDM (gestational diabetes mellitus) Current Visit: Yes Status: Acute (4) Uncontrolled blood glucose Current Visit: Yes Status: Acute Hospital Course: This is a 35 [address] 32 weeks of that was admitted for BS control. she was noted to have significantly elevated BS, and states they have all been in the 200's at home. she was initially c/o lower pelvic pain and pre term labor was ruled out initially. she has since stated those concerns have resolved. she has been eating a carb consistent diet here at the hospital, and still noted elevated BS post prandiol. IM/sound physicians was consulted and rec NPH 30 units in the am and then 20 units in the evening. she did have some need for sliding scale coverage despite this large increase in insulin. she required 3 units of novolog for coverage of her meals. 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 she has had reactive NST and baby is moving well, her prior complaints of pain have resolved as states above. she is to see Dr. Banuelos for GDM management tomorrow at 945. She did speak to the office prior to her discharge. she is to see myself for care in addition next week, ptl precautions have been reviewed in addition. Erx for her NPH and addition regular insulin were placed to the pharmacy. Patient Condition at Discharge: Good Plan - Discharge Summary Discharge Rx Participant: Yes New Discharge Prescriptions: New Insulin Regular [humuLIN R] 5 units SQ DIRECTED 1 Days #10 ml Insulin NPH [humuLIN N] 20 unit SQ AC-SUPPER 7 Days #1 vial No Action Acetaminophen [Tylenol] 2 tab PO Q4H PRN PRN Reason: Pain Pnv No.95/Ferrous Fum/Folic AC [ Multivitamin Tablet] 1 each PO DAILY Aspirin [Children's Aspirin] 81 mg PO DAILY Discharge Medication List Acetaminophen [Tylenol] 2 tab PO Q4H PRN 01/20/19 [History] Pnv No.95/Ferrous Fum/Folic AC [ Multivitamin Tablet] 1 each PO DAILY 01/20/19 [History] Aspirin [Children's Aspirin] 81 mg PO DAILY 01/03/21 [History] Insulin NPH [humuLIN N] 20 unit SQ AC-SUPPER 7 Days #1 vial 01/05/21 [Rx] Insulin Regular [humuLIN R] 5 units SQ DIRECTED 1 Days #10 ml 01/05/21 [Rx] Follow up Appointment(s)/Referral(s): Asha Santiago DO [Doctor of Osteopathic Medicine] - 1 Week Patient Instructions/Handouts: Gestational Diabetes (ED), Gestational Diabetes (DC) Discharge Disposition: HOME SELF-CARE
== END 2021-01-05 17:40 | disposition home or self-care (01) ==
LOC: FBPOP 12:32 → 4FBP 17:38
PROVIDERS: ADMIT Obstetrics & Gynecology Obstetrics; ATTEND Obstetrics & Gynecology Obstetrics
DX: O24.414 Gestational diabetes mellitus in pregnancy, insulin controlled (principal); O26.93 Pregnancy related conditions, unspecified, third trimester; R10.9 Unspecified abdominal pain; Z3A.32 32 weeks gestation of pregnancy; E78.5 Hyperlipidemia, unspecified; Z79.82 Long term (current) use of aspirin; Z98.891 History of uterine scar from previous surgery; Z87.440 Personal history of urinary (tract) infections; Z87.820 Personal history of traumatic brain injury; Z86.19 Personal history of other infectious and parasitic diseases; Z87.442 Personal history of urinary calculi; Z82.49 Family history of ischemic heart disease and other diseases of the circulatory system; Z83.3 Family history of diabetes mellitus; Z83.49 Family history of other endocrine, nutritional and metabolic diseases
CPT/HCPCS: 59025; 96376; 99214; 96361 ×2; 96365; 96375; 80053; 85025; 81001; 83036; 87635; 76805; 76817; G0378 ×3; S0197 ×2; J0131; 96366

== ENCOUNTER 2021-01-31 10:18 | Outpatient (CLI) | payer OTHER ==
[2021-01-31 13:37] VITALS: BP 134/80; PULSE 90; RESP 16; TEMP 97
--- NOTE | 2021-01-31 14:17 | US ---
EXAMINATION TYPE: US OB BPP wo non-stress DATE OF EXAM: 01/31/2021 COMPARISON: NONE CLINICAL HISTORY: nonreactive nst in office. EXAM PERFORMED: Transabdominal (TA) BPP PARAMETERS: PRESENTATION: vertex 01/03/2021 HEART RATE: 156 bpm RHYTHM: Normal MACK: 15.2 DIAPHRAGM IMAGED: BPP SCORIN. Breathin (1 episode of breathing of 30 second duration in 30 minutes of scanning time) 2. Movement: 2 (at least 3 discrete body movements in 30 minutes) 3. Tone: 2 (1 episode of active flexion/extension of limb) 4. MACK: 2 (MACK index > 5cm) TOTAL SCORE: 8 / 8
== END 2021-01-31 12:53 | disposition home or self-care (01) ==
LOC: FBPOP 10:18
PROVIDERS: ATTEND Obstetrics & Gynecology Obstetrics
DX: O24.419 Gestational diabetes mellitus in pregnancy, unspecified control (principal); Z3A.36 36 weeks gestation of pregnancy
CPT/HCPCS: 59025; 76819; 99213

== ENCOUNTER 2021-02-02 09:36 | Inpatient (IN) | payer OTHER ==
[2021-02-02] MEDS ORDERED: METHYLERGONOVINE 0.2 MG/ML 1 ML AMP IM PRN (11:17)
[2021-02-02] MEDS ORDERED: CARBOPROST TROMETHAMINE 250 MCG/ML 1 ML AMP IM PRN (11:17)
[2021-02-02] MEDS ORDERED: OXYTOCIN 10 UNIT/ML 1 ML VIAL IM PRN (11:17)
[2021-02-02] MEDS ORDERED: LIDOCAINE 0.5% (PF) 5 MG/ML (50 ML SDV) SQ PRN (11:17)
[2021-02-02] MEDS ORDERED: TERBUTALINE 1 MG/ML VIAL SQ PRN (11:17)
[2021-02-02] MEDS ORDERED: CITRIC ACID-SODIUM CITRATE 15 ML CUP PO ONE (11:20)
[2021-02-02] MEDS: LACTATED RINGERS 1,000 ML IV SCH ×3 (11:25→21:34)
[2021-02-02 11:33] LABS: Basophils % (A) 0 %; Eosinophils # (A) 0.1 k/uL (0-0.7); Eosinophils % (A) 1 %; HCT 41.2 % (34.0-46.0); HGB 13.7 gm/dL (11.4-16.0); Lymphocytes # (A) 1.7 k/uL (1.0-4.8); Lymphocytes % (A) 16 %; MCH 29.3 pg (25.0-35.0); MCHC 33.4 g/dL (31.0-37.0); MCV 87.8 fL (80.0-100.0); Mean Platelet Volume 10.5; Monocytes # (A) 0.4 k/uL (0-1.0); Monocytes % (A) 4 %; Neutrophils % (A) 77 %; Platelet Count 200 k/uL (150-450); RBC 4.69 m/uL (3.80-5.40); RDW 14.7 % (11.5-15.5); WBC 10.5 k/uL (3.8-10.6)
--- NOTE | 2021-02-02 11:34 | US ---
"EXAMINATION TYPE: US OB BPP wo non-stress DATE OF EXAM: 02/02/2021 COMPARISON: US 2 days ago CLINICAL HISTORY: NONREACTIVE NST. at 36 weeks 4 days gestation EXAM PERFORMED: Transabdominal (TA) BPP PARAMETERS: HEART RATE: 155 bpm RHYTHM: Normal MACK: 18.1cm DIAPHRAGM IMAGED: yes BPP SCORIN. Breathin (1 episode of breathing of 30 second duration in 30 minutes of scanning time) 2. Movement: 2 (at least 3 discrete body movements in 30 minutes) 3. Tone: 2 (1 episode of active flexion/extension of limb) 4. MACK: 2 (MACK index > 5cm) TOTAL SCORE: 6 / 8 Abnormal study as detailed above. Consider delivery based on clinical correlation. A Yellow level critical message alert has been initiated for Asha Santiago DO via the [employer] [place] [employer] | Critical Results System on 02/02/2021 11:32 AM. This message alert has been sent to Asha acuña DO via the preferences provided by the clinician for the receipt of Radiology Critical Findings. [facility] [place] [id number]."
[2021-02-02] MEDS ORDERED: ceFAZolin 1,000 MG VIAL ONE (12:25)
[2021-02-02] MEDS ORDERED: MIDAZOLAM 2 MG/2 ML VIAL ONE (12:25)
[2021-02-02] MEDS ORDERED: OXYTOCIN 10 UNIT/ML 1 ML VIAL ONE (12:25)
[2021-02-02] MEDS ORDERED: KETOROLAC 15 MG/ML 1 ML VIAL ONE (12:25)
[2021-02-02] MEDS ORDERED: MORPHINE SULFATE (PF) 0.3 MG/0.3 ML SYR ONE (12:25)
[2021-02-02] MEDS ORDERED: SODIUM CHLORIDE 0.9% 100 ML BAG ONE (12:25)
[2021-02-02] MEDS ORDERED: NALBUPHINE 10 MG/ML (1 ML AMP) ONE (12:25)
[2021-02-02] MEDS ORDERED: NALOXONE 0.4 MG/ML 1 ML VIAL IV PRN ×2 (12:56→19:48)
[2021-02-02] MEDS ORDERED: HYDROmorphone 0.5 MG/0.5 ML SYRINGE IVP PRN (12:56)
[2021-02-02] MEDS ORDERED: ONDANSETRON 4 MG/2 ML VIAL IVP PRN ×2 (12:56→19:48)
[2021-02-02] MEDS ORDERED: KETOROLAC 15 MG/ML 1 ML VIAL IVP PRN (12:56)
[2021-02-02] MEDS ORDERED: diphenhydrAMINE 50 MG/ML 1 ML VIAL IVP PRN ×3 (12:56→19:48)
--- NOTE | 2021-02-02 13:37 | P.OP ---
Date of Procedure: 02/02/21 Preoperative Diagnosis: IUP at 36 and 4/sevenths weeks, insulin-dependent gestational diabetic, nonreassuring status Postoperative Diagnosis: Same Procedure(s) Performed: Repeat section Anesthesia: spinal Surgeon: Asha Santiago Or Assistant #1: Glen Martin Estimated Blood Loss (ml): 400 IV fluids (ml): 800 Urine output (ml): 100 Pathology: other (Placenta) Condition: stable Disposition: observation Indications for Procedure: 35-year-old at 36-4/7 weeks presented to the office today for routine visit and nonstress test. Nonstress test was noted to be nonreactive therefore she was sent to the hospital for continued monitoring. Nonstress test here in the hospital was noted to be nonreactive and BPP was preformed, it was noted to be 6 out of 8. Given the nonreassuring heart tones minimal variability category 2 patient was counseled on repeat section. Patient had an estimated weight on ultrasound today of 10 lbs. 3 oz. Operative Findings: Viable female infant delivered at 1244, 10 lbs. 3 oz. with Apgars of 8 and 9 at one and 5 minutes respectively. Normal uterus tubes and ovaries were appreciated Description of Procedure: Patient was taken back to the operating suite where spinal anesthesia was found to be adequate by the anesthesia department. She was then prepped and draped in the normal sterile fashion in the dorsal supine position. A Pfannenstiel skin incision was made the scalpel and carried through the underlying layer of fascia. Significant edema was noted within the subcu tissue. The fascia was then incised in the midline and extended laterally. The superior aspect the fascial incision was then grasped kulwinder clamps, elevated and underlying rectus muscles dissected off sharply. The inferior aspect of the fascial incision was then grasped with Kulwinder clamps, elevated and underlying rectus muscles dissected off sharply once again. The rectus muscles were in the midline the incision was then extended superiorly and inferiorly with good visualization the bladder. The bladder blade was inserted into the pelvis and the vesicouterine peritoneum was identified and the bladder flap was created using sharp and blunt dissection. A hysterotomy incision was then performed and copious amounts of clear fluid were noted consistent with a diagnosis of polyhydramnios. The infant was brought up through the uterine incision and via vacuum assist was delivered in the usual fashion. The umbilical cord was doubly clamped and cut and was handed off to awaiting RN, spontaneous cry was noted at . The placenta was then delivered manually and the uterus was cleared of all clots and debris. The uterus was then delivered from the abdomen. The hysterotomy incision was then closed with 0 Vicryl in a running locked fashion a second imbricating suture was performed. Hemostasis was appreciated. The pelvis then irrigated copiously the hysterotomy incision was inspected and a small amount of bleeding was noted on the midportion therefore a [id number] suture was used to obtain hemostasis. The uterus was returned to the abdomen and the gutters were cleared of all clots and debris. The uterine incision was inspected and hemostasis was appreciated. The rectus muscles were then loosely reapproximated. The fascia was then closed with 0 Vicryl in a running fashion from one lateral edge the midline and the other lateral edge the midline. The subcutaneous tissue was then irrigated found to be hemostatic and closed with 3- 0 Vicryl in a running fashion. The skin was then closed with 4-0 Vicryl in a subcuticular fashion. Steri-Strips and sterile dressings were applied. Patient and infant tolerated procedure well, WAS noted to be correct 2 at the end of the procedure.
--- NOTE | 2021-02-02 13:42 | P.HPOB ---
History of Present Illness H&P Date: 02/02/21 Chief Complaint: IUP @ 36 4/7 weeks, non reassuring status This is a 35 yo aat 36 4/7 weeks that presents to labor and delivery from the office. Patient was seen for routine visit where NST was noted to be nonreactive. Patient was sent for continued monitoring here at the office. NST continued to be nonreactive therefore biophysical profile was pe rformed and noted to be 6 out of 10. Estimated weight in the office was 10 lbs. 3 oz. with an amniotic fluid index of 25. Patient states she does note movement and is noting some contractions. Patient has a history of a 36 week delivery, breech via emergent . Patient's care has been complicated by gestational diabetes, insulin- dependent. Poorly control blood sugars were appreciated. Patient has been seeing endocrinology for blood sugar follow-up. She notes fasting blood sugars to be 90-110, 2 hour postprandials 120-140. On bloodwork this patient has a blood type of B+, rubella status immune, B surface antigen negative, HIV negative, group beta strep was pending. Review of Systems Constitutional: Denies chills, Denies fatigue, Denies fever Ears, nose, mouth and throat: Denies headache Cardiovascular: Reports leg edema Gastrointestinal: Denies constipation, Denies diarrhea, Denies nausea, Denies vomiting Genitourinary: Reports Past Medical History Past Medical History: Diabetes Mellitus, Hyperlipidemia, Renal Disease Additional Past Medical History / Comment(s): Hx concussion X1, hx kidney infection in 6th grade. Hx kidney infections, swelling on kidney 2 yrs ago. Hx Cellulitis on back and leg and abcess just below tailbone. Gestational Diabetes both pregnancies, oral medication with first preganancy, Insulin with this one. History of Any Multi-Drug Resistant Organisms: None Reported Past Surgical History: Section Past Anesthesia/Blood Transfusion Reactions: No Reported Reaction Past Psychological History: No Psychological Hx Reported Smoking Status: Former smoker Past Alcohol Use History: None Reported Past Drug Use History: None Reported - Past Family History Father Family Medical History: Coronary Artery Disease (CAD), Diabetes Mellitus, Hyperlipidemia Additional Family Medical History / Comment(s): DM Type 2 Mother Family Medical History: Thyroid Disorder Medications and Allergies Home Medications Medication Instructions Recorded Confirmed Type Acetaminophen [Tylenol] 2 tab PO Q4H PRN 01/20/19 02/02/21 History Pnv No.95/Ferrous Fum/Folic AC 1 each PO DAILY 01/20/19 02/02/21 History [ Multivitamin Tablet] Aspirin [Children's Aspirin] 81 mg PO DAILY 01/03/21 02/02/21 History Insulin Regular [humuLIN R] 5 units SQ DIRECTED 1 Days #10 01/05/21 02/02/21 Rx ml Insulin NPH [humuLIN N] 34 unit SQ AC-SUPPER 01/31/21 02/02/21 History Allergies Allergy/AdvReac Type Severity Reaction Status Date / Time No Known Allergies Allergy Verified 02/02/21 09:39 Exam Osteopathic Statement: *. No significant issues noted on an osteopathic structural exam other than those noted in the History and Physical/Consult. 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 heart tones are noted to be 150s with minimal variability, category 2, no decelerations are noted. Results Result Diagrams: 02/02/21 11:00 Abnormal Lab Results - Last 24 Hours (Table) 02/02/21 Range/Units 11:00 Neutrophils # 8.0 H (1.3-7.7) k/uL Assessment and Plan (1) Non-reassuring heart tones complicating , antepartum Current Visit: Yes Status: Acute Code(s): O36.8390 - MATERN CARE FOR ABNLT FETL HRT RATE OR RHYM, UNSP TRI, UNSP SNOMED Code(s): 600538251 (2) H/O section Current Visit: Yes Status: Acute Code(s): Z98.891 - HISTORY OF UTERINE SCAR FROM PREVIOUS SURGERY SNOMED Code(s): 343963284 (3) 36 weeks gestation of Current Visit: No Status: Acute Code(s): Z3A.36 - 36 WEEKS GESTATION OF SNOMED Code(s): 51244256 Plan: This 35-year-old at 36 weeks of gestation presents from the office with nonreassuring testing. Continued monitoring and biophysical profile consistent with diagnosis of nonreassuring testing. Given patient's prior history of counseled patient on need for repeat section given she is remote from delivery. Multiple questions are answered and patient although frustrated states understanding.
[2021-02-02] MEDS ORDERED: diphenhydrAMINE 50 MG CAP PO PRN (19:48)
[2021-02-02] MEDS ORDERED: ZOLPIDEM 5 MG TAB PO PRN (19:48)
[2021-02-02] MEDS ORDERED: IBUPROFEN IV 800 MG in SODIUM CHLORIDE 0.9% 250 ML IV SCH (19:48)
[2021-02-02] MEDS ORDERED: SIMETHICONE 80 MG CHEWABLE PO PRN (19:48)
[2021-02-02] MEDS ORDERED: diphenhydrAMINE 25 MG CAP PO PRN (19:48)
[2021-02-02] MEDS ORDERED: METOCLOPRAMIDE 5 MG/ML 2 ML VIAL IVP PRN (19:48)
[2021-02-02] MEDS ORDERED: OXYTOCIN 30 UNITS/500 ML NS 30 UNIT in SALINE 1 500ML.BAG IV SCH (19:48)
[2021-02-02] MEDS: SENNOSIDES-DOCUSATE SODIUM 1 EACH TAB PO SCH (19:52)
[2021-02-02] MEDS: IBUPROFEN 600 MG TAB PO SCH (20:38)
[2021-02-02] MEDS: ACETAMINOPHEN IV (For NPO) 1,000 MG in EMPTY BAG 1 BAG IVPB SCH ×3 (21:33→23:50)
[2021-02-02] MEDS: ACETAMINOPHEN TAB 500 MG TAB PO SCH (23:04)
[2021-02-03] MEDS: IBUPROFEN 600 MG TAB PO SCH ×4 (01:51→22:36)
[2021-02-03] MEDS: ACETAMINOPHEN TAB 500 MG TAB PO SCH ×5 (03:27→23:44)
[2021-02-03] MEDS: LACTATED RINGERS 1,000 ML IV SCH (05:32)
--- NOTE | 2021-02-03 06:25 | P.PN ---
Progress Note - Text Progress Note Date: 02/03/21 Postoperative day 1 status post section under spinal anesthesia, and intrathecal morphine given for postoperative analgesia, patient doing well, there is no anesthesia related complications Patient had no headache, vital signs stable Assessment and plan = postop day 1 status post , doing well there is no anesthesia related complication
[2021-02-03 07:49] LABS: Basophils % (A) 0 %; Eosinophils # (A) 0.1 k/uL (0-0.7); Eosinophils % (A) 1 %; HCT 32.1 % (34.0-46.0); HGB 11.4 gm/dL (11.4-16.0); Lymphocytes # (A) 1.5 k/uL (1.0-4.8); Lymphocytes % (A) 14 %; MCH 31.1 pg (25.0-35.0); MCHC 35.6 g/dL (31.0-37.0); MCV 87.4 fL (80.0-100.0); Mean Platelet Volume 10.1; Monocytes # (A) 0.4 k/uL (0-1.0); Monocytes % (A) 4 %; Neutrophils # (A) 8.2 k/uL (1.3-7.7); Neutrophils % (A) 80 %; Platelet Count 143 k/uL (150-450); RBC 3.68 m/uL (3.80-5.40); WBC 10.3 k/uL (3.8-10.6)
--- NOTE | 2021-02-03 08:36 | P.PNOBGPC ---
Subjective - Subjective Principal diagnosis: POD 1 RCS Interval history: Patient is feeling well this morning. She is ambulating and voiding without difficulty. She is tolerating a regular diet without nausea or vomiting. She states her pain is well-controlled. She is complaining of some mild shoulder discomfort. Lochia is minimal, she is bottle feeding Patient reports: Reports appetite normal, Reports voiding normally, Reports pain well controlled, Reports ambulating normally : doing well, bottle feeding Objective - Vital Signs Latest vital signs: Vital Signs Temp Pulse Resp BP Pulse Ox 02/03/21 08:00 98.4 F 79 16 116/70 98 02/03/21 06:00 16 02/03/21 04:00 98.3 F 78 16 101/52 97 02/03/21 02:00 16 02/02/21 23:49 96 02/02/21 23:43 97.9 F 89 16 116/75 02/02/21 22:00 16 98 02/02/21 20:00 98.1 F 92 16 130/69 98 02/02/21 18:20 18 02/02/21 17:25 96 02/02/21 16:43 18 02/02/21 15:36 20 02/02/21 15:35 97.5 F L 61 16 132/74 95 02/02/21 14:56 77 20 128/80 96 02/02/21 14:26 72 16 117/70 95 02/02/21 14:11 81 18 108/60 95 02/02/21 13:56 83 18 118/66 94 L 02/02/21 13:44 18 94 L 02/02/21 13:41 87 16 101/59 94 L 02/02/21 13:26 96.9 F L 78 18 111/54 95 02/02/21 11:33 97.3 F L 94 18 124/88 98 Intake and Output 02/02/21 02/03/21 02/03/21 22:59 06:59 14:59 Intake Total 600 500 Output Total 3550 550 500 Balance -3550 50 0 Intake: IV 500 Oral 600 Output: Urine 2950 550 500 Uretheral (White) 600 Estimated Blood Loss 600 Other: # Voids 1 - Exam Extremities: Present: normal, edema Abdomen: Present: normal appearance, soft Incision: Present: normal, dry, intact Uterus: Present: normal, firm - Labs Labs: Abnormal Lab Results - Last 24 Hours (Table) 02/02/21 02/03/21 Range/Units 11:00 05:52 RBC 3.68 L (3.80-5.40) m/uL Hct 32.1 L (34.0-46.0) % Plt Count 143 L (150-450) k/uL Neutrophils # 8.0 H 8.2 H (1.3-7.7) k/uL Assessment and Plan (1) Non-reassuring heart tones complicating , antepartum Current Visit: Yes Status: Acute Code(s): O36.8390 - MATERN CARE FOR ABNLT FETL HRT RATE OR RHYM, UNSP TRI, UNSP SNOMED Code(s): 926241381 (2) H/O section Current Visit: Yes Status: Acute Code(s): Z98.891 - HISTORY OF UTERINE SCAR FROM PREVIOUS SURGERY SNOMED Code(s): 122154436 (3) 36 weeks gestation of Current Visit: No Status: Acute Code(s): Z3A.36 - 36 WEEKS GESTATION OF SNOMED Code(s): 88061203 (4) GDM, class A2 Current Visit: Yes Status: Acute Code(s): O24.419 - GESTATIONAL DIABETES MELLITUS IN , UNSP CONTROL SNOMED Code(s): 10876714 (5) S/P section Current Visit: Yes Status: Acute Code(s): Z98.891 - HISTORY OF UTERINE SCAR FROM PREVIOUS SURGERY SNOMED Code(s): 116716979 Plan: 35-year-old G2 now P1102 status post repeat section for nonreassuring testing. Patient is doing well postoperatively. We will continue to increase ambulation today. Continue routine postoperative care and anticipate discharge home tomorrow.
[2021-02-03] MEDS: SENNOSIDES-DOCUSATE SODIUM 1 EACH TAB PO SCH ×2 (09:11→20:24)
[2021-02-04] MEDS: IBUPROFEN 600 MG TAB PO SCH ×4 (04:18→18:34)
[2021-02-04] MEDS: ACETAMINOPHEN TAB 500 MG TAB PO SCH ×2 (07:00→15:59)
[2021-02-04] MEDS: SENNOSIDES-DOCUSATE SODIUM 1 EACH TAB PO SCH ×2 (08:34→19:45)
[2021-02-04] MEDS ORDERED: HYDROcodone/APAP 5-325MG 1 EACH TAB PO PRN (14:02)
--- NOTE | 2021-02-04 14:02 | P.PNOBGPC ---
Subjective - Subjective Principal diagnosis: POD 2 RCS Interval history: Patient is doing well overall. Her is currently under bilirubin lights and that is stressful for her. She is ambulating and voiding without difficulty. She is tolerating a regular diet without nausea or vomiting. Her pain is moderately controlled. Her lochia is minimal she is breast-feeding and supplementing with formula. Patient reports: Reports appetite normal, Reports voiding normally, Reports pain well controlled, Reports ambulating normally : doing well Objective - Vital Signs Latest vital signs: Vital Signs Temp Pulse Resp BP Pulse Ox 02/04/21 09:00 98.2 F 101 H 20 144/82 97 02/04/21 00:00 98.2 F 81 18 126/71 97 02/03/21 18:00 16 02/03/21 16:00 98.3 F 87 16 137/78 97 Intake and Output 02/03/21 02/04/21 02/04/21 22:59 06:59 14:59 Intake Total 500 360 Balance 500 360 Intake: Oral 500 360 Other: # Voids 2 2 1 - Exam Extremities: Present: normal, edema Abdomen: Present: normal appearance Incision: Present: normal, intact Uterus: Present: normal Assessment and Plan (1) Non-reassuring heart tones complicating , antepartum Current Visit: Yes Status: Acute Code(s): O36.8390 - MATERN CARE FOR ABNLT FETL HRT RATE OR RHYM, UNSP TRI, UNSP SNOMED Code(s): 180257584 (2) H/O section Current Visit: Yes Status: Acute Code(s): Z98.891 - HISTORY OF UTERINE SCAR FROM PREVIOUS SURGERY SNOMED Code(s): 853461487 (3) 36 weeks gestation of Current Visit: No Status: Acute Code(s): Z3A.36 - 36 WEEKS GESTATION OF SNOMED Code(s): 47873454 (4) GDM, class A2 Current Visit: Yes Status: Acute Code(s): O24.419 - GESTATIONAL DIABETES MELLITUS IN , UNSP CONTROL SNOMED Code(s): 58955010 (5) S/P section Current Visit: Yes Status: Acute Code(s): Z98.891 - HISTORY OF UTERINE SCAR FROM PREVIOUS SURGERY SNOMED Code(s): 446023127 Plan: Patient is doing well overall postoperatively. We will change her pain medications from oxy 5 milligrams to [place] 5/325. Encourage increased ambulation and anticipate discharge home tomorrow if infant's bilirubin has
[2021-02-04] MEDS: HYDROcodone/APAP 5-325MG 1 EACH TAB PO PRN ×2 (15:56→19:45)
[2021-02-05] MEDS: IBUPROFEN 600 MG TAB PO SCH ×2 (02:52→11:47)
[2021-02-05] MEDS: ACETAMINOPHEN TAB 500 MG TAB PO SCH ×2 (05:59→14:12)
--- NOTE | 2021-02-05 08:08 | P.DS ---
Providers Date of admission: 02/02/21 11:25 Expected date of discharge: 02/05/21 Attending physician: Asha Santiago Primary care physician: Stated None - Discharge Diagnosis(es) (1) Non-reassuring heart tones complicating , antepartum Current Visit: Yes Status: Acute (2) H/O section Current Visit: Yes Status: Acute (3) 36 weeks gestation of Current Visit: No Status: Acute (4) GDM, class A2 Current Visit: Yes Status: Acute (5) S/P section Current Visit: Yes Status: Acute Hospital Course: This is a 35-year-old 001 that presented to labor and delivery from the office for nonreactive NST. Patient was seen in OB triage continued minimal variability was noted on heart tones therefore biophysical profile was ordered and noted to be 6 out of 10. Given patient's uncontrolled gestational diabetes nonreassuring testing patient was counseled on repeat section. Estimated weight for the at that time was 10 lbs. 3 oz, based on ultrasound in the office. Patient was admitted and taken for repeat section. Repeat section was performed without difficulty for full details on the please see the operative report. Patient delivered a viable female at 1244, weight of 10 lbs. 3 oz. with Apgars of 8 and 9 at one and 5 minutes respectively. Patient's course has been essentially uneventful. On this day #3 she is ambulating and voiding without difficulty. Her pain is controlled with oral [place]. Her lochia is minimal. She is breast- feeding without difficulty. She was like discharge home if infant is discharged with her. girl has had elevated bilirubin levels and was treated with bili lights overnight. Patient Condition at Discharge: Good Plan - Discharge Summary New Discharge Prescriptions: No Action Acetaminophen [Tylenol] 2 tab PO Q4H PRN PRN Reason: Pain Pnv No.95/Ferrous Fum/Folic AC [ Multivitamin Tablet] 1 each PO DAILY Insulin Regular [humuLIN R] 5 units SQ DIRECTED 1 Days #10 ml Aspirin [Children's Aspirin] 81 mg PO DAILY Insulin NPH [humuLIN N] 34 unit SQ AC-SUPPER Discharge Medication List Acetaminophen [Tylenol] 2 tab PO Q4H PRN 01/20/19 [History] Pnv No.95/Ferrous Fum/Folic AC [ Multivitamin Tablet] 1 each PO DAILY 01/20/19 [History] Aspirin [Children's Aspirin] 81 mg PO DAILY 01/03/21 [History] Insulin Regular [humuLIN R] 5 units SQ DIRECTED 1 Days #10 ml 01/05/21 [Rx] Insulin NPH [humuLIN N] 34 unit SQ AC-SUPPER 01/31/21 [History] Follow up Appointment(s)/Referral(s): Asha Santiago DO [Doctor of Osteopathic Medicine] - 2 Weeks Patient Instructions/Handouts: (DC), (GEN) Activity/Diet/Wound Care/Special Instructions: Patient may discontinue her prior insulin dosing as it was for gestational diabetes. Patient is encouraged to follow up with endocrine given the amount of insulin that she was taking during the . Patient is to follow up with myself in 2 weeks for routine check. Prescriptions for oral Motrin will is on her chart. Discharge Disposition: HOME SELF-CARE
[2021-02-05] MEDS: HYDROcodone/APAP 5-325MG 1 EACH TAB PO PRN (09:04)
[2021-02-05 10:06] VITALS: BP 149/91; PULSE 84; RESP 18; TEMP 98.1
[2021-02-05] MEDS: SENNOSIDES-DOCUSATE SODIUM 1 EACH TAB PO SCH (14:12)
== END 2021-02-05 14:06 | disposition home or self-care (01) | DRG 788 ==
LOC: FBPOP 09:36 → 4FBP 11:25
PROVIDERS: ADMIT Obstetrics & Gynecology Obstetrics; ATTEND Obstetrics & Gynecology Obstetrics
PROC: 10D00Z1 Extraction of Products of Conception, Low, Open Approach (ICD-10-PCS; principal; 2021-02-02 12:40)
DX: O76 Abnormality in fetal heart rate and rhythm complicating labor and delivery (principal); Z37.0 Single live birth; O24.424 Gestational diabetes mellitus in childbirth, insulin controlled; Z87.891 Personal history of nicotine dependence; Z83.3 Family history of diabetes mellitus; Z82.49 Family history of ischemic heart disease and other diseases of the circulatory system; Z3A.36 36 weeks gestation of pregnancy; O34.211 Maternal care for low transverse scar from previous cesarean delivery
CPT/HCPCS: 59025; 76819; 85025; 86850; 86900; 86901; 88307; 96360; 99213; 99214

== ENCOUNTER 2023-05-12 17:09 | Emergency (ER) | payer OTHER ==
[2023-05-12 17:27] VITALS: BP 135/88; PULSE 70; RESP 20; TEMP 98
[2023-05-12] MEDS ORDERED: KETOROLAC 15 MG/ML 1 ML VIAL IM STA (17:39)
--- NOTE | 2023-05-12 18:23 | ED ---
Upper Extremity HPI - General Chief Complaint: Extremity Injury, Upper Stated Complaint: Right Hand Injury Time Seen by Provider: 05/12/23 17:34 Source: patient Mode of arrival: ambulatory Limitations: no limitations - History of Present Illness Initial Comments: Patient is a 37 year old female presents to the emergency room at the direction of urgent care for further evaluation of pain along with numbness and tingling in her fourth and fifth digit on her right hand which began after she accidentally hit her hand on the top of her large dog's head that was running full speed. She states that urgent care advised her they did not believe that the hand was more than sprained but encourage follow-up at the emergency room for further evaluation. She reports a bruise and swelling occurring to the dorsal aspect of her hand quickly after the injury. She was given oral dose of Motrin at the urgent care and states that the pain level has reduced since the administration of the medication which was approximately 45 minutes ago. Due to pain she is limiting range of motion. She denies any cold sensation or pallor to her wrist or hand. She does report a burning-like sensation extending into the elbow. She has a past medical history significant for gestational diabetes and renal impairment. - Related Data Home Medications Medication Instructions Recorded Confirmed Acetaminophen [Tylenol] 2 tab PO Q4H PRN 01/20/19 02/02/21 Pnv No.95/Ferrous Fum/Folic AC 1 each PO DAILY 01/20/19 02/02/21 [ Multivitamin Tablet] Aspirin [Children's Aspirin] 81 mg PO DAILY 01/03/21 02/02/21 Insulin NPH [humuLIN N] 34 unit SQ AC-SUPPER 01/31/21 02/02/21 Previous Rx's Medication Instructions Recorded Insulin Regular [humuLIN R] 5 units SQ DIRECTED 1 Days #10 01/05/21 ml Allergies Allergy/AdvReac Type Severity Reaction Status Date / Time No Known Allergies Allergy Verified 05/12/23 17:27 Review of Systems ROS Statement: Those systems with pertinent positive or pertinent negative responses have been documented in the HPI. ROS Other: All systems not noted in ROS Statement are negative. Past Medical History Past Medical History: Diabetes Mellitus, Hyperlipidemia, Renal Disease Additional Past Medical History / Comment(s): Hx concussion X1, hx kidney infection in 6th grade. Hx kidney infections, swelling on kidney 2 yrs ago. Hx Cellulitis on back and leg and abcess just below tailbone. Gestational Diabetes both pregnancies, oral medication with first preganancy, Insulin with this one. History of Any Multi-Drug Resistant Organisms: None Reported Past Surgical History: Section Past Anesthesia/Blood Transfusion Reactions: No Reported Reaction Past Psychological History: No Psychological Hx Reported Smoking Status: Former smoker Past Alcohol Use History: None Reported Past Drug Use History: None Reported - Past Family History Father Family Medical History: Coronary Artery Disease (CAD), Diabetes Mellitus, Hyperlipidemia Additional Family Medical History / Comment(s): DM Type 2 Mother Family Medical History: Thyroid Disorder General Exam Limitations: no limitations General appearance: alert, in no apparent distress Head exam: Present: atraumatic, normocephalic, normal inspection Eye exam: Present: normal appearance, PERRL, EOMI. Absent: scleral icterus, co njunctival injection, periorbital swelling, periorbital tenderness ENT exam: Present: normal exam, mucous membranes moist Neck exam: Present: normal inspection, full ROM Respiratory exam: Absent: respiratory distress, accessory muscle use Cardiovascular Exam: Present: regular rate GI/Abdominal exam: Absent: distended Right Forearm Wrist exam: Present: tenderness. Absent: full ROM (Limited by pain), swelling, abrasion, laceration, ecchymosis, deformity, crepitus, dislocation, erythema Hand Wrist exam: Present: tenderness, swelling, ecchymosis. Absent: full ROM (Limited by pain), abrasion, laceration, deformity, crepitus, dislocation, erythema Vascular: Absent: vascular compromise Back exam: Present: normal inspection Neurological exam: Present: alert, oriented X3, CN II-XII intact Psychiatric exam: Present: normal affect, normal mood Skin exam: Present: warm, dry, intact, normal color. Absent: rash Course Vital Signs 05/12/23 17:25 Temperature 98 F Pulse Rate 70 Respiratory 20 Rate Blood Pressure 135/88 O2 Sat by Pulse 100 Oximetry Medical Decision Making - Medical Decision Making Was pt. sent in by a medical professional or institution (, PA, PIPELINE GANG SUPERVISOR, urgent care, hospital, or penitentiary...) When possible be specific @ -No Did you speak to anyone other than the patient for history (EMS, parent, family, police, friend...)? What history was obtained from this source @ -No Did you review nursing and triage notes (agree or disagree)? Why? @ -I reviewed and agree with nursing and triage notes Were old charts reviewed (outside hosp., previous admission, EMS record, old EKG, old radiological studies, urgent care reports/EKG's, penitentiary records)? Report findings @ -No old charts were reviewed Differential Diagnosis (chest pain, altered mental status, abdominal pain women, abdominal pain men, vaginal bleeding, weakness, fever, dyspnea, syncope, headache, dizziness, GI bleed, back pain, seizure, CVA, palpatations, mental health, musculoskeletal)? @ -Differential Musculoskeletal Muscular strain, contusion, ligament sprain, fracture, arthritis, septic arthritis, bursitis, cellulitis, muscle spasm, nerve compression, DVT, arterial occlusion, herpes zoster, electrolyte abnormality, tumor.... This is not meant to be in all inclusive list EKG interpreted by me (3pts min.). @ -None done X-rays interpreted by me (1pt min.). @ -X-ray of right wrist, hand and forearm: No acute osseous abnormalities, no fracture or dislocation. No soft tissue effusion. CT interpreted by me (1pt min.). @ -None done U/S interpreted by me (1pt. min.). @ -None done What testing was considered but not performed or refused? (CT, X-rays, U/S, labs)? Why? @ -None What meds were considered but not given or refused? Why? @ -None Did you discuss the management of the patient with other professionals (professionals i.e. , PA, PIPELINE GANG SUPERVISOR, lab, RT, psych nurse, social media marketing specialist, keyboard instrument repairer, teacher, light armored reconnaissance officer, returned case inspector)? Give summary @ -No Was smoking cessation discussed for >3mins.? @ -No Was critical care preformed (if so, how long)? @ -No Were there social determinants of health that impacted care today? How? (Homelessness, low income, unemployed, alcoholism, drug addiction, transportation, low edu. Level, literacy, decrease access to med. care, group home, rehab)? @ -No Was there de-escalation of care discussed even if they declined (Discuss DNR or withdrawal of care, Hospice)? DNR status @ -No What co-morbidities impacted this encounter? (DM, HTN, Smoking, COPD, CAD, Cancer, CVA, ARF, Chemo, Hep., AIDS, mental health diagnosis, sleep apnea, morbid obesity)? @ -None Was patient admitted / discharged? Hospital course, mention meds given and route, prescriptions, significant lab abnormalities, going to OR and other pertinent info. @ -37-year-old female presenting the ER for further evaluation of injury to right hand and wrist that occurred a few hours before presenting to the emergency room advised that she was encouraged to go to the emergency room for further evaluation of urgent care who provided an Bruno wrap and splint for her hand/wrist. Mild numbness and tingling distal to contusion the dorsal aspect of her hand and range of motion impairment due to pain. Good pulses. Good capillary refill. No evidence of vascular compromise will repeat imaging as she has not brought them with her. Imaging compartments no acute osseous pathology, pain improved with Toradol. No indication for further workup at this time. Treatment of wrist sprain along with pain contusion discussed with patient at length. Splint that she had available reapplied neurovascularly intact pre-and post-splint application. Advised may resume work. Advised ibuprofen or Tylenol as needed for pain. Questions and concerns answered. Return parameters the emergency room discussed. Will discharge home in stable condition with splint intact to right wrist sprain and right hand contusion advising use of [id number] Tylenol or Motrin as needed and follow-up with primary care provider.. Undiagnosed new problem with uncertain prognosis? @ -No Drug Therapy requiring intensive monitoring for toxicity (Heparin, Nitro, Insulin, Cardizem)? @ -No Were any procedures done? @ -No Diagnosis/symptom? @ -Right hand contusion Acute, or Chronic, or Acute on Chronic? @ -Acute Uncomplicated (without systemic symptoms) or Complicated (systemic symptoms)? @ -Uncomplicated Side effects of treatment? @ -No Exacerbation, Progression, or Severe Exacerbation? @ -No Poses a threat to life or bodily function? How? (Chest pain, [place], [place], pneumonia, PE, COPD, DKA, ARF, appy, cholecystitis, CVA, Diverticulitis, Homicidal, Suicidal, threat to staff... and all critical care pts) @ -No Diagnosis/symptom? @ -Right wrist sprain Acute, or Chronic, or Acute on Chronic? @ -Acute Uncomplicated (without systemic symptoms) or Complicated (systemic symptoms)? @ -Uncomplicated Side effects of treatment? @ -none Exacerbation, Progression, or Severe Exacerbation] @ -no Poses a threat to life or bodily function? @ -no Case discussed with Dr. Gould. - Radiology Data Radiology results: report reviewed, image reviewed Disposition Clinical Impression: Contusion of hand, right, Right wrist sprain Disposition: HOME SELF-CARE Condition: Stable Instructions (If sedation given, give patient instructions): Wrist Injury (ED), Hand Sprain (ED) Additional Instructions: Please continue conservative management with R. I. C. E. Rest joint when possible, apply ice for 20 minute increments every 2-3 hours, keep compression with Bruno wrap intact when possible. Elevate joint when possible. Utilize [id number] analgesics of ibuprofen or Tylenol as needed for pain. May return to work but avoid heavy lifting for the next 2 weeks. Please follow-up with your primary care provider. Please return to the Emergency Department if symptoms worsen or any other concerns. Is patient prescribed a controlled substance at d/c from ED?: No Referrals: Jeniffer Redman MD [Primary Care Provider] - 1-2 days Time of Disposition: 19:01
--- NOTE | 2023-05-12 18:40 | XR ---
EXAMINATION TYPE: XR forearm 2 views RT, XR wrist complete 4 views RT, XR hand complete 3 views RT DATE OF EXAM: 05/12/2023 COMPARISON: NONE HISTORY: 37-year-old female pain after trauma FINDINGS: Forearm: No elbow joint effusion. No acute fracture of the more proximal or mid radius or ulna. Right wrist: The radiocarpal and distal radioulnar joint as well as the midcarpal compartment are int act. No acute fracture, subluxation, dislocation is seen. Right hand: Mild degenerative change first CMC and triscaphe joints. No acute fracture, subluxation, dislocation is seen. IMPRESSION: Right forearm, wrist, and right hand without acute osseous abnormality seen. 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
== END 2023-05-12 19:10 | disposition home or self-care (01) ==
LOC: SUPCPDRO 17:09 → EC 17:09
DX: S63.501A Unspecified sprain of right wrist, initial encounter (principal); E11.9 Type 2 diabetes mellitus without complications; Z79.82 Long term (current) use of aspirin; Z79.4 Long term (current) use of insulin; Z87.891 Personal history of nicotine dependence; W54.1XXA Struck by dog, initial encounter; Y93.02 Activity, running
CPT/HCPCS: 73090; 73110; 73130; 99283; 96372; J1885